=== PATIENT | female | born 1995 | race Caucasian/White ===

== ENCOUNTER 2020-07-20 21:06 | Emergency (ER) | payer OTHER, SELFPAY ==
[2020-06-07 09:21] VITALS: BMI 20.5
[2020-07-20 21:06] VITALS: BP 144/102; PULSE 86; RESP 17; TEMP 36.4; O2SAT 99; BMI 28.5
--- NOTE | 2020-07-20 21:37 | ED.VIS.GEN ---
History of Present Illness Chief Complaint: Laceration Informant: Patient Onset: Today Context: Sudden Onset Timing: Continuous Current Severity: Mild Maximum Severity: Mild Narrative: Patient is a 25-year-old female that is right-hand dominant the presents to the emergency department laceration to her right hand. Patient was pulling out some tile. She incised the lateral aspect of her right fifth finger at the MCP area. She had immediate pain and bleeding. She irrigated it copiously. Her tetanus is up-to-date. She denies other injury. Prior similar symptoms: No Recent Illness/Hospitalization: No Past Medical History - Allergies and Home Meds Allergies/Adverse Reactions: Allergies No Known Allergies Allergy (Verified 07/20/20 21:06) Primary Care Physician: Gaviota Obregon MD [Primary Care Provider] - 10 Day for suture removal Prior records reviewed: Yes Past Medical History: None Surgical History: no surgical history Smoking Status: Never smoker Review of Systems General: Denies: Chills, Fever, Sweats Eyes: Denies: Visual changes - bilaterally, Diplopia ENT: Denies: Rhinorrhea, Sore throat Cardiovascular: Denies: Chest pain, Palpitations Respiratory: Denies: Dyspnea, Cough, Dyspnea on exertion Gastrointestinal: Denies: Abdominal pain, Nausea, Vomiting, Diarrhea, Melena, Hematochezia Genitourinary: Denies: Dysuria, Hematuria, Frequency Musculoskeletal: Denies: Back pain, Extremity Pain Skin: Denies: Rash, Wounds Neurological: Denies: Headache, Weakness, Numbness Physical Exam Vital Signs/Narrative: Vital Signs Temp Pulse Resp BP Pulse Ox 07/20/20 21:06 97.6 F L 86 17 144/102 H 99 Inital Vital Signs reviewed: Yes General: Well nourished, Well developed, No Acute Distress Head: Normocephalic, Atraumatic Eyes: Perrl, EOMI ENT: Moist mucous membranes, No rhinorrhea Neck: Supple, Nontender Cardiovascular: Regular rate, Regular rhythm, No murmurs Respiratory: No distress, CTA bilaterally, Chest nontender Abdomen: Soft, Nontender, Nondistended, Normal bowel sounds Back: Nontender, Normal Inspection Extremities: No edema, Tenderness - Patient has a 2 cm laceration at the fold of the lateral aspect of the right fifth MCP joint. Flexion and extension are preserved. Two-point discrimination is preserved. Skin: Normal color, No rash Neurological: Alert, Oriented x3, Cranial nerves II-XII grossly intact, Normal Strength, Normal Sensation Psychological: Normal affect, Normal Mood Diagnostic/Tx/Re-eval - Medical Decision Making Patient presents with laceration. The area was anesthetized with 1% lidocaine without epinephrine. A total of 2 cc were used. It was irrigated and explored. There was no evidence of tendinous injury. The wound was closed with 3 simple interrupted 5-0 suture. Patient was placed in AlumaFoam splint for comfort. Bacitracin dressing was applied. She will be discharged home with wound care instructions. Impression 1. 2 cm right hand laceration with repair ED Disposition - Plan for ED Patient: Instructions: ED Laceration Hand Referrals: Gaviota Obregon MD [Primary Care Provider] - 10 Day for suture removal
[2020-07-20 21:55] VITALS: BP 123/84; PULSE 75; RESP 16
== END 2020-07-20 22:13 | disposition home or self-care (01) ==
LOC: ED 22:06
PROVIDERS: Emergency Provider Emergency Medicine; PCP Pediatrics
DX: S61.411A Laceration without foreign body of right hand, initial encounter (principal); X58.XXXA Exposure to other specified factors, initial encounter
CPT/HCPCS: 12001; 99282

== ENCOUNTER 2022-09-23 01:05 | Emergency (ER) | payer BC, SELFPAY ==
[2022-09-23 01:05] VITALS: BP 137/92; PULSE 112; RESP 19; TEMP 36.3; O2SAT 94; O2SAT 96; BMI 29.5
--- NOTE | 2022-09-23 01:28 | RAD_ITS ---
EXAM: XR CHEST, 1 VIEW CLINICAL INDICATION: cough. Shield abd please. 23 weeks cough. Shield abd please. 23 weeks TECHNIQUE: Frontal view of the chest. This report was created using [employer] report generation technology. COMPARISON: 05/03/2016. FINDINGS: LUNGS AND PLEURAL SPACES: Unremarkable. No consolidation or edema. No pneumothorax. No effusion. HEART: Unremarkable. Cardiac silhouette not enlarged. MEDIASTINUM: Central airways and mediastinal contour are unremarkable. BONES/JOINTS: Unremarkable. SOFT TISSUES: Unremarkable. RAD/Chest 1 View (Portable) IMPRESSION: No radiographic evidence of acute cardiopulmonary disease. Electronically Signed: Gopi Loya MD at 3:03 EST Reading Location ID and State: [facility] / [place] , Service support ,
--- NOTE | 2022-09-23 01:29 | EDS_ITS ---
HPI HPI - URI History of Present Illness Chief Complaint: Shortness of Breath Detail of Chief Complaint: Cough with yellowish sputum. Wheezing. Informant: patient Onset/Context/Timing Onset: Days Context: Gradual Onset Timing: Intermittent Current Severity: Mild Maximum Severity: Mild Associated Symptoms Associated Symptoms: Positive for Productive Cough (Yellow sputum.); Negative for Nonproductive cough or Hemoptysis Narrative Narrative: 27-year-old female G2, P1 Ab0 is currently 23 weeks . Has a history of asthma. Also protein Moss factor V clotting disorder on Lovenox shots daily which she has been taking. Had URI symptoms with cough of yellowish sputum. Intermittent wheezing. Was seen in urgent care on Thursday for a sore throat told she was strep negative they thought she might have influenza but did not her test her for that. She states the cough has worsened. Denies any chest pain or hemoptysis. And she is intermittently wheezing using her inhaler more often. Denies any fever. Only vomiting is with coughing spells. No dysuria. Prior similar symptoms: Yes Recent Illness/Hospitalization: No ROS ROS ED ROS Narrative Cough with URI symptoms. Intermittent wheezing. Review of Systems ROS Unobtainable: Denies due to encephalopathy Constitutional Constitutional ED: Denies chills or fever(s) Eyes Eyes: Denies blurry vision ENT ENT ED: Reports sore throat; Denies ear pain or rhinorrhea Cardiovascular Cardiovascular: Denies chest pain or palpitations Respiratory/Chest Respiratory/Chest: Reports cough and dyspnea Gastrointestinal Gastrointestinal: Denies abdominal pain, constipation, diarrhea or melena Genitourinary Genitourinary ED: Denies dysuria or hematuria Musculoskeletal Musculoskeletal: Denies arthralgias Integumentary Denies abscess Neurologic Neurologic: Denies headache(s) Psychiatric Psychiatric: Denies anxiety Endocrine Endocrinology: Denies cold intolerance Hematologic/Lymphatic Hematologic/Lymphatic: Denies easy bleeding or easy bruising Allergic/Immunologic Allergic/Immunologic ED: Denies mouth swelling or tongue swelling PFSH PFS Medical History Anemia Asthma Factor V deficiency Home Medications albuterol sulfate 90 mcg/actuation aerosol inhaler 1 - 2 puff inhalation Q6H PRN PRN Sob &/Or Wheezing 04/02/16 [History Last Taken Unknown] cetirizine 10 mg capsule (Zyrtec) 10 mg PO DAILY PRN seasonal allergies 09/17/22 [History Last Taken Unknown] enoxaparin 40 mg/0.4 mL subcutaneous syringe 0.4 ml subcut DAILY 09/17/22 [History Last Taken Unknown] albuterol sulfate 90 mcg/actuation aerosol inhaler (Proventil HFA) 2 puff inhalation Q6H PRN shortness of breath or wheezing #6.7 grams 09/23/22 [Rx Last Taken Unknown] prednisone 20 mg tablet 40 mg PO DAILY 5 days #10 tabs 09/23/22 [Rx Last Taken Unknown] Allergy/AdvReac Type Severity Reaction Status Date / Time No Known Allergies Allergy Verified 09/17/22 10:16 Social History Smoking Status: Never smoker alcohol intake: current alcohol intake frequency: a few times a month EXAM Physical Exam Narrative Exam Narrative: 27-year-old female vital signs are stable afebrile. Pulse ox 96% on room air no signs hypoxia. Patient does not look septic or toxic. Does not look dehydrated. H EENT exam unremarkable. Moist Riis membranes. Posterior pharynx unremarkable. No erythema or exudate. No trouble swallowing. No stridor. TMs normal. Neck nontender. No JVD. No lymphadenopathy. Trachea midline. Lungs clear to auscultation bilaterally. Mildly prolonged respiratory phase. No rales, rhonchi or wheezing. Heart tachycardic rate about 110 no murmur. Abdomen soft nontender normal bowel sounds no peritoneal signs. Gravid nont ravindra uterus. Moving all 4 extremities. Calves are nontender without edema or cords. Neurologically patient is awake and alert with no focal motor deficits. Const Vital Signs: 09/23/22 01:05 09/23/22 01:05 Temperature 97.3 F L Temperature Source Temporal Pulse Rate 112 H Respiratory Rate 19 H Respiratory Effort Short of Breath Respiratory Depth Normal Respiratory Pattern Tachypnea Blood Pressure 137/92 H Blood Pressure Mean 107 Pulse Ox 96 Oxygen Delivery Method Room Air Room Air Positive well nourished and well developed; Negative for obese, cachectic or contractures General Appearance ED: well developed and NAD; Negative for cachectic, contractures, cyanotic, diaphoretic or pallor Nutritional Appearance: Negative for cachectic or obese HEENT Reports moist mucous membranes; Denies dry mucous membranes normocephalic and atraumatic; Negative for scalp tenderness Face and Sinus: Negative for sinus tenderness or maxillary instability Mouth ED: No dry mucous membranes Mouth: No dry mucous membranes Teeth and Gingiva: Negative for caries Throat: posterior oropharynx normal; Negative for tonsils abnormal or posterior oropharynx abnormal Eyes PERRL and EOMs intact bilaterally General Eye ED: Negative for pale conjunctiva or scleral icterus Neck no lymphadenopathy, supple, no meningeal signs and no JVD General: Negative for anterior neck swelling or lymphadenopathy Resp normal respiratory effort and clear to auscultation bilaterally Resp Narrative: Mildly prolonged expiratory phase. No rales or rhonchi. Effort and Inspection: Negative for retractions Auscultation: Negative for rales, rhonchi or wheezes Cardio S1 normal heart sound, S2 normal heart sound and no murmurs Rate: tachycardic; Negative for regular rate or bradycardia Rhythm: regular rhythm; Negative for abnormal rhythm GI non-tender, non-distended and no masses GI Narrative: Gravid nontender uterus. Auscultation: normoactive bowel sounds Palpation: soft; Negative for tender or guarding Back/Spine no CVA tenderness and normal ROM General Back: Negative for CVA tenderness Cervical Spine: Negative for cervical spine tenderness Thoracic Spine / Upper Back: Negative for thoracic spinal tenderness Lumbar Spine / Lower Back: Negative for lumbar spinal tenderness Sacrum: Negative for tenderness Extremity normal to inspection and full ROM General Extremety ED: Negative for cyanosis or tenderness General Extremity: Negative for cyanosis Neuro oriented x3, CN's II-XII intact bilaterally and no sensory deficits noted Sensorium / Orientation: alert, oriented to person, oriented to place and orie nted to time; Negative for orientation impaired, lethargic or stuporous Motor Exam: strength 5/5 throughout; Negative for general weakness or strength abnormal Psych mental status grossly normal Appearance: Negative for other Attitude: No agitated Mood & Affect: Negative for depressed, anxious or tearful Skin General Skin Exam: Negative for jaundice or pallor Lesions: no lesions Rashes: no rashes Trauma: Negative for abrasion or laceration MDM MDM MDM Narrative Medical decision making narrative: 27-year-old female URI symptoms. Suspect viral syndrome. Will be treated with prednisone and a DuoNeb aerosol due to her asthma and prolonged expiratory phase. Chest x-ray will be obtained to rule out pneumonia. Her abdomen will be shielded due to her . I do not think this is from a PE. She is having no chest pain or hemoptysis. She is currently being treated for clotting disorder on Lovenox. COVID and influenza swabs will be done. Repeat exam at 2:57 AM patient doing better. Improved after the aerosol treatment in the dose of prednisone. No wheezing at this time. Better air movement. She will be discharged home. She is almost out of her inhaler I will send in a prescription both for an albuterol inhaler and 40 mg of prednisone for the next 5 days. Follow-up with her SE[facility] AND FERTILIZER SPECIALIST as needed. Return if worse. Lab Data Attestation: I reviewed the patient's lab results. Lab results narrative: Rapid COVID swab is negative. Influenza swab is negative. Chest x-ray is negative also. Radiography Diagnostic Testing: Chest x-ray, portable, single view interpreted by myself shows no acute abnormality. Normal cardiac silhouette. Normal lung cardenas. No infiltrate. Discharge Plan Triage Chief Complaint: Shortness of Breath ED Provider: Antony Ley Dx/Rx/DC Orders Clinical Impression: Viral URI, Acute asthma flare, Second trimester Instructions: ED URI, Viral, No Abx (Adult), Asthma Prescriptions: New albuterol sulfate [Proventil HFA] 90 mcg/actuation HFA aerosol inhaler 2 puff inhalation Q6H PRN (Reason: shortness of breath or wheezing) Qty: 6.7 1RF prednisone 20 mg tablet 40 mg PO DAILY 5 Days Qty: 10 0RF No Action enoxaparin 40 mg/0.4 mL syringe 0.4 ml subcut DAILY Zyrtec 10 mg capsule 10 mg PO DAILY PRN (Reason: seasonal allergies) albuterol sulfate 1 PUFF inhaler 1 - 2 puff INHALATION Q6H PRN PRN (Reason: Sob &/Or Wheezing) Primary Care Provider: Care Physician,No Primary Referrals: Sierra Obregon MD [Med Staff - Active Staff] - As Needed Care Physician,No Primary [Primary Care Provider] - Activity Restrictions/Additional Instructions: Inhaler as needed. 2 puffs every 4-6 hours as needed. Prednisone 40 mg a day start tomorrow. Follow-up with your doctor if not improving. Return if worse. Prescription for both the inhaler and prednisone were sent to your pharmacy. Disposition Disposition: Home, Self Care
[2022-09-23] MEDS: predniSONE 20 MG Tablet 40 MG PO (01:32)
[2022-09-23] MEDS: Ipratropium/Albuterol Sulfate 3 ML AMPUL.NEB INHALATION (01:40)
== END 2022-09-23 03:15 | disposition home or self-care (01) ==
PROVIDERS: Emergency Provider Emergency Medicine; Visit Provider Emergency Medicine
DX: O99.512 Diseases of the respiratory system complicating pregnancy, second trimester (principal); O99.112 Other diseases of the blood and blood-forming organs and certain disorders involving the immune mechanism complicating pregnancy, second trimester; R11.10 Vomiting, unspecified; J06.9 Acute upper respiratory infection, unspecified; J45.901 Unspecified asthma with (acute) exacerbation; Z79.01 Long term (current) use of anticoagulants; Z20.822 Contact with and (suspected) exposure to COVID-19
CPT/HCPCS: 71045; 87428; 99283

== ENCOUNTER 2022-12-22 11:28 | Emergency (ER) | payer BC, SELFPAY ==
[2022-12-22 11:29] VITALS: BP 106/84; PULSE 103; RESP 16; TEMP 36.6; O2SAT 96; BMI 29.5
--- NOTE | 2022-12-22 11:58 | RAD_ITS ---
EXAM: XR CHEST, 2 VIEWS CLINICAL INDICATION: Cough. SOB. TECHNIQUE: Frontal and lateral views of the chest. This report was created using [employer] report generation technology. COMPARISON: 05/03/2016. FINDINGS: LUNGS AND PLEURAL SPACES: Unremarkable. No consolidation or edema. No pneumothorax. No effusion. HEART: Unremarkable. Cardiac silhouette not enlarged. MEDIASTINUM: Central airways and mediastinal contour are unremarkable. BONES/JOINTS: Unremarkable. SOFT TISSUES: Unremarkable. RAD/Chest PA and Lateral IMPRESSION: No radiographic evidence of acute cardiopulmonary disease and no significant interval change when compared to 05/03/2016. Electronically Signed: Brenden Perez MD at 12:44 EDT ,
--- NOTE | 2022-12-22 12:00 | EX.ED.VIS.UR ---
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 She has been taking Delsym as needed since she developed runny nose, congestion, and a cough within the next couple days, still taking amoxicillin, she is having bilateral ear discomfort, chest discomfort, hoarseness now she has lost her voice, and wheezing with asthma symptoms, she has a history of asthma. Chest is really sore especially when she coughs. States albuterol is helping her wheezing some. No fevers or chills. She is in her third trimester and having no issues with that at this time. She is anticoagulated on Lovenox because of a history of factor V Leiden, she has had no bleeding anywhere recently. Patient states has been on the amoxicillin, her sore throat is much better. ROS ROS ED Constitutional Constitutional ED: Denies chills or fever(s) ENT ENT ED: Reports ear pain bilateral, hoarseness, nasal congestion, rhinorrhea and sore throat Cardiovascular Cardiovascular: Reports chest pain; Denies palpitations Respiratory/Chest Respiratory/Chest: Reports cough and dyspnea Gastrointestinal Gastrointestinal: Denies abdominal pain, diarrhea, nausea or vomiting Genitourinary Genitourinary ED: Denies dysuria or hematuria Musculoskeletal Musculoskeletal: Denies myalgias or neck pain Integumentary Denies abscess or rash Neurologic Neurologic: Denies headache(s), paresthesias or weakness Psychiatric Psychiatric: Denies depression or suicidal thoughts Endocrine Endocrinology: Denies polydipsia or polyuria [facility] Medical History Acute otitis media, right Acute pharyngitis, unspecified Acute sinusitis, unspecified Anemia Asthma Factor V deficiency Home Medications amoxicillin 250 mg/5 mL oral suspension 500 mg (10 mL) PO TID 10 days #300 mL 12/18/22 [Rx Last Taken Unknown] prednisone 20 mg tablet 40 mg PO DAILY #10 TABLETS 12/22/22 [Rx Last Taken Unknown] Allergy/AdvReac Type Severity Reaction Status Date / Time No Known Allergies Allergy Verified 12/22/22 11:32 Social History Smoking Status: Never smoker alcohol intake: current alcohol intake frequency: a few times a month EXAM Physical Exam Const Vital Signs: 12/22/22 11:29 12/22/22 12:50 Temperature 97.8 F Temperature Source Temporal Pulse Rate 103 H Respiratory Rate 16 Respiratory Effort Short of Breath Respiratory Depth Normal Respiratory Pattern Normal Blood Pressure 106/84 H Blood Pressure Mean 91 Pulse Ox 96 Oxygen Delivery Method Room Air Positive well nourished and well developed General Appearance ED: well developed and NAD HEENT Reports moist mucous membranes HEENT Narrative: TMs normal bilaterally, barely a rim of erythema at the stapes prominence in the left TM, but otherwise no purulent effusion or changes in light reflex. EACs normal bilaterally. No sinus tenderness. No purulent nasal discharge. normocephalic and atraumatic Throat: Negative for posterior oropharynx abnormal Eyes PERRL and EOMs intact bilaterally Neck no lymphadenopathy, supple and no meningeal signs Chest Wall Chest Narrative: Bilateral parasternal tenderness consistent with muscular discomfort. Resp normal respiratory effort and clear to auscultation bilaterally Cardio no murmurs Rate: regular rate and tachycardic Rhythm: regular rhythm GI non-tender GI Narrative: Distended above the umbilicus consistent with her third trimester Neuro oriented x3, CN's II-XII intact bilaterally and no sensory deficits noted Sensorium / Orientation: alert Motor Exam: strength 5/5 throughout Skin Lesions: no lesions Rashes: no rashes MDM MDM MDM Narrative Medical decision making narrative: Perform COVID and influenza swabs, which were both negative, as well as a two-view chest x-ray which is normal showing no acute consolidation/pneumonia on my interpretation. Radiology in agreement. Started on prednisone for her asthma exacerbation, I would continue the amoxicillin, it is not appropriate first-line treatment, however does appear to have taken care of her otitis media. She states the practitioner saw her told her that her left ear was very red and asymmetric when she was evaluated and that is much better now. I think the chest pain is a mixture of her bronchitis and a sore musculature in her chest wall. Supportive care advised in addition to prescription for prednisone. Radiography Diagnostic Testing: Clinical Impression(s) from Imaging Studies Chest X-Ray 12/22/22 11:58 IMPRESSION: No radiographic evidence of acute cardiopulmonary disease and no significant interval change when compared to 05/03/2016. Electronically Signed: Brenden Perez MD at 12:44 EDT , Discharge Plan Triage Chief Complaint: Cough ED Provider: Moshe Perez Dx/Rx/DC Orders Clinical Impression: Acute asthma exacerbation, Acute viral bronchitis Instructions: Acute Bronchitis, Asthma Prescriptions: New prednisone 20 mg tablet 40 mg PO DAILY Qty: 10 0RF No Action amoxicillin 250 mg/5 mL suspension for reconstitution 500 mg PO TID 10 Days Qty: 300 0RF Primary Care Provider: Care Physician,No Primary Referrals: Care Physician,No Primary [Primary Care Provider] - Doctor,Your [Non-Staff] - 1 Week if not improving Activity Restrictions/Additional Instructions: Prescription get started tomorrow, 12/23 since you already had a dose for 12/22 Disposition Disposition: Home, Self Care
[2022-12-22] MEDS: predniSONE 20 MG Tablet 40 MG PO (12:03)
== END 2022-12-22 13:08 | disposition home or self-care (01) ==
PROVIDERS: Emergency Provider Emergency Medicine; Visit Provider Emergency Medicine
DX: O99.513 Diseases of the respiratory system complicating pregnancy, third trimester (principal); J45.901 Unspecified asthma with (acute) exacerbation; J20.8 Acute bronchitis due to other specified organisms; Z3A.00 Weeks of gestation of pregnancy not specified
CPT/HCPCS: 71046; 87428; 99283

== ENCOUNTER 2022-12-30 18:35 | Inpatient (IN) | payer BC, SELFPAY ==
[2022-12-30 17:31] VITALS: BP 130/89; PULSE 67; TEMP 36.4
[2022-12-30 17:48] VITALS: BMI 29.8
[2022-12-30 18:37] LABS: ROM Internal Control Test YES-OK TO RESULT pt. (Internal QC)
[2022-12-30 18:38] LABS: ROM Patient Test POSITIVE (Negative)
[2022-12-30] MEDS: Lactated Ringers 1,000 ML 50 ML IV (19:15)
[2022-12-30 19:43] VITALS: BP 133/81; PULSE 60; TEMP 36.7
--- NOTE | 2022-12-30 19:50 | PCM.HP.OB ---
HPI - General General Date of Admission: 12/30/22 Date of Service: 12/30/22 HPI Narrative DOUGLAS LACEY, is a 27 F who presents possible LOF. Maternal Data Information Final ERICA: 01[birth year]/23 Gestational age: 37&3 PFSH PFSH Medical History (Updated 12/30/22 @ 20:[address] 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 Home Medications albuterol 90 mcg/actuation aerosol inhaler 90 mcg inhalation Q6H PRN PRN bronchitis 12/30/22 [History Last Taken 12/30/22 08:00 2 inh] enoxaparin 40 mg/0.4 mL subcutaneous syringe (Lovenox) 40 mg subcut DAILY factor V 12/30/22 [History Last Taken 12/28/22 20:00 40 mg] Allergy/AdvReac Type Severity Reaction Status Date / Time No Known Allergies Allergy Verified 12/30/22 17:51 Surgical History History of surgery Social History Smoking Status: Never smoker alcohol intake: current alcohol intake frequency: a few times a month History Elective abortions Hx Para 1 Spontaneous abortions Hx # Term Pregnancies Ectopic pregnancies Hx # Pregnancies Multiple births # of living children NST FHR Rate Baby A Baseline: 125 Variability:: Moderate Accelerations:: 15 x 15 Decelerations:: None Uterine Activity:: quiet Vital Signs Vital Signs Vital Signs: 12/30/22 17:31 12/30/22 17:31 12/30/22 17:31 Temperature 97.5 F L Pulse Rate 67 Blood Pressure 130/89 H BP Systolic 130 BP Diastolic 89 12/30/22 19:43 12/30/22 19:43 Temperature Pulse Rate 60 Blood Pressure 133/81 H BP Systolic 133 BP Diastolic 81 Weight Weight: 173 lb 15.115 oz Body Mass Index (BMI) 29.8 Physical Exam Const alert, oriented x3 and no apparent distress GI soft to palpation, non-tender and non-distended Inspection: gravid external exam normal Narrative: cvx - 3/70/-1 Extremity normal to inspection Labs Labs Labs: Blood Type O POSITIVE Antibody Screen NEGATIVE Hct 40.1 % (37-47) Hgb 13.5 g/dl (12.0-15.0) Syphilis Total Ab Pending Rubella IgG Antibody 8.4 IU/mL Hep Bs Antigen Negative (Negative) Rhogam given: No Miscellaneous Test see [facility] H&P Assessment & Plan (1) 37 or more weeks gestation of : COMMENT: G@P1001 @ 37&3 (2) Protein S deficiency affecting : (3) Factor V deficiency: (4) Asthma: PLAN: Plan Admit to L&D as ROM+ positive Expectant management & will augment with pitocin if needed Pain - declines epidural at this time GBS negative Thrombophilia - plan for PP lovenox Routine care
[2022-12-30 19:52] LABS: Absolute Lymphocyte Count 2.69 X10^3/uL (0.83-4.51); Absolute Neutrophil Count 9.8 X10^3/uL (2.0-7.7); Basophil# 0.03 X10^3/uL; Basophil% 0.2 % (0-1); Eosinophil# 0.11 X10^3/uL; Eosinophils% 0.8 % (0-5); Hematocrit 38.5 % (37-47); Hemoglobin 12.4 g/dL (12.0-15.0); Lymphocyte # 2.69 X10^3/ul (0.83-4.51); Lymphocyte % 19.9 % (19-41); Mean Corp Hgb Conc 32.2 g/dL (32-36); Mean Corpuscular Hgb 27.9 pg (27.0-32.0); Mean Corpuscular Volume 86.7 fL (81-99); Mean Platelet Vol. 11.4 fl (6.2-12.0); Monocyte# 0.84 X10^3/uL; Monocyte% 6.2 % (0-10); NRBC Flagged by Analyzer 0 % (0-5); Neutrophil # 9.76 X10^3/uL (2.7-7.7); Neutrophil % 72.2 % (47-70); Platelet Count 301 K/mm3 (150-450); RBC Distribution Width CV 12.5 % (11.6-14.6); RBC Distribution Width SD 39.8 fl (35.1-43.9); Red Blood Count 4.44 M/mm3 (4.2-5.4); White Blood Count 13.5 K/mm3 (4.4-11.0)
[2022-12-30 20:30] LABS: Syphilis Antibodies Non-reactive
[2022-12-30 22:25] VITALS: BP 122/72; PULSE 83; TEMP 36.4
[2022-12-31] VITALS (19 sets, daily range): BP systolic 114–160; BP diastolic 67–86; PULSE 51–77; RESP 16–18; TEMP 36.1–36.7; O2SAT 97
[2022-12-31] MEDS: Oxytocin 15 Units/NS 250ml 15 UNITS/250 ML IV.SOLN 2 UNITS IV (00:18)
[2022-12-31] MEDS: Acetaminophen 500 MG Tablet PO (03:32)
[2022-12-31] MEDS: fentaNYL 100 MCG/2 ML Ampul IV (03:58)
[2022-12-31] MEDS: LACTATED RINGERS 500 ML 999 ML IV (06:02)
--- NOTE | 2022-12-31 06:53 | EX.PCM.OBRPT ---
Maternal Data Information Final ERICA: 01/[birth year]/23 Gestational age: 39&4 Vaginal Delivery Maternal Presentation Maternal Presentation: Spontaneous Rupture of Membranes Type of Induction: Pitocin Operative Information Date of Procedure: 12/31/22 Pre-Operative Diagnosis: SROM Post-Operative Diagnosis: SROM Surgery / Procedure Performed: Spontaneous Vaginal Delivery Type of Anesthesia: Local with 1% Lidocaine Estimated Blood Loss: 300ml Findings Description of Procedure: Patient prepped & draped when C/C/+2. She pushed well to deliver the head. head gently guided to allow delivery of anterior and posterior shoulders. No excess traction placed on head. Body delivered and 3VC clamped & cut in delayed fashion. Placenta delivered with gentle traction and good uterine tone obtained. Presentation: ARUN Amniotic Membrane Rupture Type: Spontaneous Amniotic Fluid Description: Clear Placental Delivery Description: Expressed Placenta Disposition: [facility] Specimen(s) Removed: Placenta Cord Vessel Description: 3 Vessels Cord Entanglement: Around neck x 1, loose Nuchal Cord Compression: Without compression A Gender: Male (Lucas Ramana) (1 minute): 9 (5 minute): 9 Delayed Cord Clamping: Yes Post Vaginal Delivery Medications Given After Delivery: IV Pitocin Episiotomy Description: None Laceration: 1st degree (vaginal - repaired with 3-0 vicryl) Complication Complications: None
[2022-12-31] MEDS: Oxytocin 15 Units/NS 250ml 15 UNITS/250 ML IV.SOLN 83 UNITS IV (07:10)
[2022-12-31] MEDS: Ibuprofen 600 MG Tablet PO ×2 (07:50→17:51)
[2022-12-31] MEDS: Enoxaparin 40 MG/0.4 ML Syringe SC (10:16)
[2022-12-31] MEDS: 0.9% Saline Lock 10 ML Syringe IV (10:16)
[2022-12-31] MEDS: Acetaminophen 500 MG Tablet 1000 MG PO (21:39)
[2023-01-01 00:56] VITALS: BP 134/88; PULSE 67; RESP 18
[2023-01-01] MEDS: Ibuprofen 600 MG Tablet PO (02:06)
[2023-01-01 08:00] VITALS: BP 133/74; PULSE 59; RESP 16; TEMP 36.3
--- NOTE | 2023-01-01 08:57 | DCINST_ITS ---
Discharge Instructions Diet Discharge Diet: No restrictions Activity Discharge Activity: Return to Normal Activity, May Shower and May Take a Tub Bath May resume sexual activity in: 4-6 weeks Weight Bearing Status: Weight bearing as tolerated Dressing / Incision Call your doctor if you observe: Inability to urinate, Using more than 1 pad per hour, Shortness of breath, Dizziness, Swelling in the ankles, Chest pain, Calf discomfort and Uncontrolled pain Follow Up Care When: Within 10 days Test Results: Test results from this visit will be discussed in further detail at your follow- up appointment, if applicable. Discharge Plan Admission Admit Date/Time: 12/30/22 18:35 Primary Reason for Your Visit: Labor and Delivery Attending Provider: Diana Negron Primary Care Provider: Care Physician,Anju Primary Discharge Orders/Prescriptions Prescriptions: No Action albuterol 90 mcg/actuation Aerosol 90 mcg INHALATION Q6H PRN PRN (Reason: bronchitis) enoxaparin [Lovenox] 40 mg/0.4 mL Syringe 40 mg SUBCUT DAILY Referrals / Follow Up: Care Physician,Anju Primary [Primary Care Provider] - Disposition Disposition (needs filled in before D/C Order can be placed): Home, Self Care
--- NOTE | 2023-01-01 08:57 | PCM.PN.OB ---
Subjective Subjective Patient seen at bedside. Feeling good. Denies pain. Ambulating and voiding without difficulty. Bottle feeding . Desires discharge home today. Objective Data Objective Data Vital Signs: Vital Signs Temp Pulse Resp BP Pulse Ox O2 Del Method 97 F L 67 18 134/88 H 97 Room Air 12/31/22 19:56 01/01/23 00:56 01/01/23 00:56 01/01/23 00:56 12/31/22 08:55 01/01/23 00:56 Oxygen Delivery Method Room Air Weight: 173 lb 15.115 oz Body Mass Index (BMI) 29.8 Intake & Output: Intake and Output for Last 24 Hours 12/30/22 12/31/22 01/01/23 23:59 23:59 23:59 Intake Total 1562.50 / 1562.50 Output Total 600 / 600 Balance 962.50 / 962.50 Lab / Micro Data Result Diagrams: 12/30/22 19:35 ROS Eyes Eyes: Denies blurry vision, change in vision or spots in vision ENT HEENT: Denies dizziness or headache(s) Cardiovascular Cardiovascular: Denies abdominal pain, chest pain or dyspnea Respiratory/Chest Respiratory/Chest: Denies cough, dyspnea, shortness of breath at rest or shortness of breath with exertion Gastrointestinal Gastrointestinal: Denies abdominal pain, diarrhea or vomiting Genitourinary Genitourinary: Denies change in urinary stream, difficulty urinating or dysuria Musculoskeletal Musculoskeletal: Reports none Integumentary Integumentary: Denies rash Neurologic Neurologic: Denies dizziness, headache(s), memory loss or weakness Physical Exam Const alert and no apparent distress General Appearance: cooperative and comfortable Exam Limitations: no limitations HEENT normocephalic Eyes General Eye: normal appearance of both eyes Neck full ROM General: normal visual inspection Chest Chest: symmetrical chest wall rise Resp normal respiratory effort and normal air movement Effort and Inspection: symmetric chest movement Auscultation: clear to auscultation bilaterally Cardio regular rate and regular rhythm GI normal to inspection, nondistended, normoactive bowel sounds Back/Spine normal ROM Extremity full ROM and no calf tenderness General Extremity: normal exam except as noted Skin no rashes or lesions noted Neuro CN's II-XII intact bilaterally Psych mental status grossly normal Assessment & Plan (1) (spontaneous vaginal delivery): (2) Laceration, obstetrical, first degree: PLAN: Plan PPD 1 Routine care D/C home with follow up in office
[2023-01-01] MEDS: Enoxaparin 40 MG/0.4 ML Syringe SC (10:08)
== END 2023-01-01 10:25 | disposition home or self-care (01) | DRG 806 ==
LOC: WPOUT 18:42 → WP 18:42
PROVIDERS: Admitting Provider Obstetrics & Gynecology; Referring Provider Obstetrics & Gynecology; Visit Provider Obstetrics & Gynecology
DX: O42.92 Full-term premature rupture of membranes, unspecified as to length of time between rupture and onset of labor (principal); Z37.0 Single live birth; O99.12 Other diseases of the blood and blood-forming organs and certain disorders involving the immune mechanism complicating childbirth; D68.2 Hereditary deficiency of other clotting factors; D68.59 Other primary thrombophilia; J45.909 Unspecified asthma, uncomplicated; O70.0 First degree perineal laceration during delivery; O99.52 Diseases of the respiratory system complicating childbirth; O69.81X0 Labor and delivery complicated by cord around neck, without compression, not applicable or unspecified; Z3A.37 37 weeks gestation of pregnancy
CPT/HCPCS: 59025; 59050; 84112; 85025; 86780; 86850; 86900; 86901; 99221; J7120; A4216; G0378

== ENCOUNTER 2023-08-19 02:49 | Emergency (ER) | payer BC, SELFPAY ==
--- NOTE | 2023-08-19 03:25 | RAD_ITS ---
EXAM: XR CHEST, 2 VIEWS CLINICAL INDICATION: cough TECHNIQUE: Frontal and lateral views of the chest. COMPARISON: No relevant prior studies available. FINDINGS: LUNGS AND PLEURAL SPACES: Unremarkable. No consolidation or edema. No pneumothorax. No effusion. HEART: Unremarkable. Cardiac silhouette not enlarged. MEDIASTINUM: Central airways and mediastinal contour are unremarkable. BONES/JOINTS: Unremarkable. No acute fracture. SOFT TISSUES: Unremarkable. RAD/Chest PA and Lateral IMPRESSION: No radiographic evidence of acute cardiopulmonary disease. Electronically Signed: Ryne Joyner MD at 3:57 EST ,
--- NOTE | 2023-08-19 06:10 | EDS_ITS ---
HPI Narrative Narrative: Mirta Quinn 1995 HPI: Patient is a 28-year-old female with past medical history of asthma managed with an albuterol inhaler and factor V Leiden deficiency. ?She states her 7-year-old's been sick with sore throat for a few days and she has noticed c ongestion drainage and cough during this time as well.? She states it is at the point where she cannot sleep secondary to her cough and symptoms and has concerned she may have COVID or influenza or possible pneumonia and therefore comes in for evaluation Review of systems: Review of systems is positive for subjective fevers and chills with nasal congestion sore throat cough and ear pain Review of systems is negative for abdominal pain nausea vomiting chest pain Physical exam: General: Awake alert no acute distress Heart: Regular rate and rhythm Lungs: Breath sounds are diminished throughout with faint expiratory wheeze in the upper and lower lobes bilaterally without nasal flaring retractions or accessory muscle use HEENT: Bilateral TMs are retracted but show no secondary changes to suggest infection.? Nasal mucosa is hyperemic and boggy with enlarged inferior nasal turbinates.? There is cobblestoning the posterior pharynx consistent with sinus drainage but no airway edema or compromise Extremities: No asymmetric edema no pitting edema negative Homans' sign bilaterally Medical decision makin view chest x-ray as interpreted by the emergency medicine physician reveals no acute infiltrate pneumothorax pleural effusion or widening of the mediastinum Patient arrived to the ER in no acute respiratory distress satting well on room air. ?Differential diagnosis is for COVID versus influenza versus other viral upper respiratory tract infection versus pneumonia versus asthma exacerbation.? A chest x-ray was obtained to rule out potential lung infection and revealed no acute findings. ?She was given prednisone Robitussin AC and a DuoNeb treatment and on reevaluation did have moderate improvement of symptoms. ?Patient is not in respiratory distress she is not requiring supplemental oxygen she does not have lung pathology such as pneumonia or pneumothorax and therefore does not need admitted and is otherwise safe for discharge. Diagnosis: Upper respiratory tract infection Asthma exacerbation Factor V Leiden deficiency [facility] Medical History (Updated 08/19/23 @ 06:[address] Praveen Fairchild, DO) 37 or more weeks gestation of Acute otitis media, right Acute pharyngitis, unspecified Acute sinusitis, unspecified Anemia Asthma Factor V deficiency Protein S deficiency affecting Home Medications albuterol 90 mcg/actuation aerosol inhaler 90 mcg inhalation Q6H PRN PRN bronchitis 12/30/22 [History Last Taken 12/30/22 08:00 2 inh] enoxaparin 40 mg/0.4 mL subcutaneous syringe (Lovenox) 40 mg subcut DAILY factor V 12/30/22 [History Last Taken 12/28/22 20:00 40 mg] Allergy/AdvReac Type Severity Reaction Status Date / Time No Known Allergies Allergy Verified 12/30/22 17:51 Surgical History History of surgery Social History Smoking Status: Never smoker alcohol intake: current alcohol intake frequency: a few times a month Discharge Plan Triage ED Provider: Praveen Fairchild Dx/Rx/DC Orders Clinical Impression: Asthma exacerbation, Viral upper respiratory tract infection with cough, Factor V Leiden Prescriptions: No Action albuterol 90 mcg/actuation Aerosol 90 mcg INHALATION Q6H PRN PRN (Reason: bronchitis) enoxaparin [Lovenox] 40 mg/0.4 mL Syringe 40 mg SUBCUT DAILY Primary Care Provider: Care Physician,No Primary Referrals: Care Physician,No Primary [Primary Care Provider] - Disposition Disposition: Home, Self Care
== END 2023-08-19 06:11 | disposition home or self-care (01) ==
PROVIDERS: Emergency Provider Emergency Medicine; Visit Provider Emergency Medicine
DX: J06.9 Acute upper respiratory infection, unspecified (principal); D68.2 Hereditary deficiency of other clotting factors; J45.901 Unspecified asthma with (acute) exacerbation
CPT/HCPCS: 71046; 87428; 94640; 99284

== ENCOUNTER → 2023-12-23 | Outpatient (CLI) | payer BC, SELFPAY | END | disposition home or self-care (01) | LOC: BFHLAB 10:26 | PROVIDERS: PCP Nurse Practitioner Family; Visit Provider Nurse Practitioner Family | DX: N39.0 Urinary tract infection, site not specified (principal) | CPT/HCPCS: 87077; 87086; 87088; 87186 ==

== ENCOUNTER → 2024-05-26 | Outpatient (CLI) | payer BC, SELFPAY ==
[2024-05-26 17:40] LABS: Absolute Lymphocyte Count 2.87 X10^3/uL (0.83-4.51); Absolute Neutrophil Count 8.3 X10^3/uL (2.0-7.7); Basophil# 0.04 X10^3/uL; Basophil% 0.3 % (0-1); Eosinophil# 0.19 X10^3/uL; Eosinophils% 1.6 % (0-5); Hematocrit 43.7 % (37-47); Hemoglobin 13.7 g/dL (12.0-15.0); Lymphocyte # 2.87 X10^3/ul (0.83-4.51); Lymphocyte % 23.4 % (19-41); Mean Corp Hgb Conc 31.4 g/dL (32-36); Mean Corpuscular Hgb 27.9 pg (27.0-32.0); Mean Platelet Vol. 12.3 fl (6.2-12.0); Monocyte# 0.84 X10^3/uL; Monocyte% 6.9 % (0-10); NRBC Flagged by Analyzer 0 % (0-5); Neutrophil # 8.25 X10^3/uL (2.7-7.7); Neutrophil % 67.4 % (47-70); Platelet Count 243 K/mm3 (150-450); RBC Distribution Width CV 11.9 % (11.6-14.6); RBC Distribution Width SD 38.2 fl (35.1-43.9); Red Blood Count 4.91 M/mm3 (4.2-5.4); White Blood Count 12.2 K/mm3 (4.4-11.0)
== END | disposition home or self-care (01) ==
PROVIDERS: PCP Family Medicine; Referring Provider Family Medicine; Visit Provider Family Medicine
DX: F32.9 Major depressive disorder, single episode, unspecified (principal)
CPT/HCPCS: 36415; 84443; 85025

== ENCOUNTER → 2024-06-07 | Outpatient (CLI) | payer BC, SELFPAY | END | disposition home or self-care (01) | LOC: LABSPEC 15:41 | PROVIDERS: PCP Family Medicine; Referring Provider Nurse Practitioner Family; Visit Provider Nurse Practitioner Family | DX: N39.0 Urinary tract infection, site not specified (principal) | CPT/HCPCS: 87077; 87086; 87088; 87186 ==

== ENCOUNTER 2025-04-30 13:46 | Emergency (ER) | payer SELFPAY ==
[2025-04-30 13:47] VITALS: BP 132/82; PULSE 81; RESP 18; TEMP 36.8; O2SAT 99
--- NOTE | 2025-04-30 13:54 | RAD_ITS ---
PROCEDURE: Right FOOT MIN 3 VIEWS 04/30/2025 REASON FOR EXAM: INJURY TECHNIQUE: Right FOOT MIN 3 VIEWS Laterality: Right COMPARISON: None. FINDINGS: Bones: No acute bony abnormalities. Joints: No dislocation. Soft tissues: No soft tissue abnormalities. RAD/Foot min 3 Views IMPRESSION: No acute bony abnormalities. Reading Location: [id number]
--- NOTE | 2025-04-30 13:55 | RAD_ITS ---
PROCEDURE: ANKLE MIN 3 VIEWS 04/30/2025 REASON FOR EXAM: INJURY TECHNIQUE: ANKLE MIN 3 VIEWS Laterality: COMPARISON: None. FINDINGS: Bones: No acute bony abnormalities. Joints: No dislocations. Soft tissues: No soft tissue abnormalities. RAD/Ankle min 3 Views IMPRESSION: No acute bony abnormalities. Reading Location: [id number]
--- NOTE | 2025-04-30 13:55 | ED.VIS.LOWEX ---
HPI History of Present Illness Chief Complaint: Lower Extremity Injury Detail of Chief Complaint: Injury to right lower extremity Informant: patient Narrative Narrative: Patient presents to the emergency department with complaint of injury to the right lower extremity. Patient states that she missed a step and rolled her ankle and foot and fell to the ground. Patient able to bear some weight but painful. Denies any other significant injuries. [facility] Medical History (Updated 04/30/25 @ 14:[address] Sydney Chavez, DO) COVID-19 Protein S deficiency affecting 37 or more weeks gestation of Acute pharyngitis, unspecified Acute otitis media, right Acute sinusitis, unspecified Factor V deficiency Asthma Anemia Home Medications ?Medication ?Instructions ?Recorded ?Last Taken ?Type escitalopram oxalate 10 mg tablet 15 mg PO QDAY 11/21/24 Unknown History [id number] 7.5 ml PO Q4-6H PRN cold symptoms 01/12/25 Unknown Rx 2 mg-30 mg-10 mg/5 mL oral syrup #100 mL (Bromfed DM) ipratropium bromide 21 mcg (0.03 2 spray intranasal BID-TID PRN 01/12/25 Unknown Rx %) nasal spray postnasal drainage #30 mL hydrocodone-acetaminophen 5-325mg 1 tab PO Q4H PRN PRN Pain 2 days 04/30/25 Unknown Rx 5mg-325mg #10 TABLETS Allergy/AdvReac Type Severity Reaction Status Date / Time No Known Allergies Allergy Verified 04/30/25 13:48 Surgical History History of surgery Social History Smoking Status: Never smoker alcohol intake: current alcohol intake frequency: a few times a month ROS ROS ED Review of Systems ROS Unobtainable: other Constitutional Constitutional ED: Reports lethargy; Denies chills, fever(s), sweats or weight loss Eyes Eyes: Denies blurry vision, change in vision or diplopia ENT ENT ED: Denies rhinorrhea or sore throat Cardiovascular Cardiovascular: Denies chest pain, orthopnea or racing heartbeat Respiratory/Chest Respiratory/Chest: Denies cough, dyspnea, dyspnea on exertion, orthopnea or sputum Gastrointestinal Gastrointestinal: Denies abdominal pain, diarrhea, nausea or vomiting Genitourinary Genitourinary ED: Denies dysuria, hematuria or urinary frequency Musculoskeletal Musculoskeletal: Reports other Details: Right foot and ankle pain/injury ; Denies arthralgias, back pain, myalgias or neck pain Integumentary Denies abscess, Abrasions or rash Neurologic Neurologic: Denies headache(s) or weakness Psychiatric Psychiatric: Denies anxiety, depression or suicidal thoughts Endocrine Endocrinology: Denies polydipsia, polyphagia or polyuria Hematologic/Lymphatic Hematologic/Lymphatic: Denies easy bleeding, easy bruising or lymphadenopathy Allergic/Immunologic Allergic/Immunologic ED: Denies mouth swelling, tongue swelling or urticaria EXAM Physical Exam Const Vital Signs: 04/30/25 13:47 Temperature 98.3 F Temperature Source Oral Pulse Rate 81 Respiratory Rate 18 Blood Pressure 132/82 H Blood Pressure Mean 98 Pulse Ox 99 Oxygen Delivery Method Room Air Positive well nourished and well developed General Appearance ED: well developed and NAD HEENT Reports TM's clear and moist mucous membranes normocephalic and atraumatic; Negative for trauma or tenderness Tympanic Membrane ED: Yes TM's clear Eyes PERRL and EOMs intact bilaterally General Eye ED: Negative for pale conjunctiva or scleral icterus Neck no lymphadenopathy, supple and no JVD General: Negative for tenderness Chest Wall inspection of chest normal and palpation of chest normal Chest: Negative for tenderness Resp normal respiratory effort and clear to auscultation bilaterally Effort and Inspection: Negative for respiratory distress or pain with movement Auscultation: Negative for rhonchi, wheezes or diminished lung sounds Cardio regular rate, regular rhythm, S1 normal heart sound, S2 normal heart sound and no murmurs Peripheral Pulses: pulses 2+ throughout GI normal to inspection, nondistended, normoactive bowel sounds, soft to palpation, non-tender, non-distended and no masses Back/Spine no CVA tenderness and no thoracic nor lumbar tenderness Extremity Extremity Narrative: Right lower extremity-patient has tenderness to palpation over the lateral malleolus with minimal soft tissue swelling. There is no ecchymosis or bruising. Patient also has tenderness to palpation over the fifth metatarsal. Neurovascularly intact distally. No pain at the proximal fibular head. General Extremety ED: Negative for edema General Extremity: Negative for edema Neuro oriented x3, CN's II-XII intact bilaterally, no sensory deficits noted and gait normal Sensorium / Orientation: awake, alert, oriented to person, oriented to place and oriented to time Motor Exam: strength 5/5 throughout and strength abnormal Psych mental status grossly normal Skin no rashes or lesions noted and no wounds MDM MDM MDM Narrative Medical decision making narrative: Patient presents with injury to the right foot and ankle. X-rays obtained showed no fractures. Suspect likely sprain. Will treat with air splint and crutches. Advised to ice and elevate the extremity. She is to use ibuprofen or Tylenol for discomfort. I will write her for a few [place] for severe pain should she needed. Advised to follow-up with primary care physician in 7 to 10 days. Radiography Diagnostic Testing: Clinical Impression(s) from Imaging Studies Foot X-Ray 04/30/25 13:54 IMPRESSION: No acute bony abnormalities. Reading Location: [facility] Ankle X-Ray 04/30/25 13:55 IMPRESSION: No acute bony abnormalities. Reading Location: [facility] Three-view x-rays of the right foot obtained interpreted by myself as questionable fracture of the distal fibula avulsion type. Age undetermined. Radiology felt there was no bony abnormalities. Three-view x-rays of the right ankle obtained interpreted by myself as no evidence of fracture dislocation. Radiology in agreement. Discharge Plan Triage Chief Complaint: Lower Extremity Injury ED Provider: Sydney Chavez Dx/Rx/DC Orders Clinical Impression: Right foot sprain, Right ankle sprain Instructions: ED Foot Sprain, ED Ankle Sprain (Adult) Prescriptions: New hydrocodone-acetaminophen 5-325 mg tablet 1 tab PO Q4H PRN PRN (Reason: Pain) 2 Days Qty: 10 0RF No Action escitalopram oxalate 10 mg tablet 15 mg PO QDAY [id number] [Bromfed DM] 2-30-10 mg/5 mL syrup 7.5 ml PO Q4-6H PRN (Reason: cold symptoms) Qty: 100 0RF ipratropium bromide 21 mcg (0.03 %) spray,non-aerosol 2 spray intranasal BID-TID PRN (Reason: postnasal drainage) Qty: 30 0RF Rx Instructions: administer into each nostril Primary Care Provider: Rachelle Mcclelland Referrals: Rachelle Mcclelland MD [Primary Care Provider] - 1 Week Print Language: Micronesian Disposition Disposition: Home, Self Care
--- OUTSIDE RECORDS SUMMARY | 2025-04-30 14:11 | XMS RPT_ITS | CCD ---
Author Organization [facility] Care Team Providers Care Splitting Machine Feeder Name Role Phone ABENA BURLESON Unavailable Unavailable REFERRED, SELF Unavailable Unavailable FANNY, SOO A Unavailable Unavailable FANNY, SOO A Unavailable Unavailable REFERRED, SELF Unavailable Unavailable FANNY, SOO A Unavailable Unavailable Required, No Pcp Unavailable Unavailable Moomaguilherme Dino I Unavailable Unavailable Unavailable Primary Care Provider Unavailabl e Unavailable Primary Care Provider Unavailabl e Unavailable Primary Care Provider Unavailabl e ALEXX Gutierrez Attending Provider ALEXX Gutierrez Attending Provider Care Physician, No Primary Primary Care Provider Unavailable Care Physician, No Primary Referring Provider Un available ALEXX Hilario Attending Provider Unavailable Primary Care Provider Unavailabl e KEYSHAWN MOSELEY Referring Unavailable Rebeka Fermin Attending Unavailable Rebeka Fermin Referring Unavailable Miedel, Rachlele Primary Care Unavailable Miedel, Rachelle Primary Care Unavailable Miedel, Rachelle Attending Unavailable Miedel, Rachelle Referring Unavailable Miedel, Rachelle Primary Care Unavailable Guillermo Gutierrez Attending Unavailable Miedel, Rachelle Referring Unavailable Miedel, Rachelle Primary Care Unavailable Moomaw, Dino Attending Unavailable Miedel, Rachelle Referring Unavailable Miedel, Rachelle Primary Care Unavailable Guillermo Gutierrez Attending Unavailable Miedel, Rachelle Referring Unavailable Allergies Allergy Classification Reported Allergen(s) Allergy Type Date of Onset Reaction(s) Facility (19 sources) Grass pollen; Translations: [GRASS POLLEN] Drug Allergy 05-28-2022 Other: See Comments [facility] Work Phone: Medications Current Medications Medication Drug Class(es) Dates Sig (Normalized) Sig (Original) Albuterol (20 sources) beta2-Adrenergic Agonist Start: 12-30-2022 take 90 ug by inhalation every six hours as needed Albuterol Active 90 MCG INHALATION EVERY 6 HOURS NEEDED December 29, 2022 11:00pm Start: 12-30-2022 take 90 ug by inhala tion every six hours as needed Albuterol Active 90 MCG INHALATION EVERY 6 HOURS NEEDED December 30, 2022 12:00am Start: 09-23-2022 End: 12-18-2022 take 1 puff(s) by inhalation every six hours Albuterol Sulfate (Proventil Hfa) 90 mcg/actuation HFA aerosol inhaler Discontinued 2 PUFF INHALATION EVERY 6 HOURS 6.7 September 23, 2022 1:00am December 18, 2022 2:39pm Start: 04-02-2016 End: 12-18-2022 take 1 puff(s) by inhalation every six hours as needed Albuterol Sulfate Discontinued 1 - 2 PUFF INHALATION EVERY 6 HOURS NEEDED April 01, 2016 11:00pm December 18, 2022 1:39pm Start: 04-02-2016 End: 12-18-2022 take 1 puff(s) by inhalation every six hours as needed Albuterol Sulfate Discontinued 1 - 2 PUFF INHALATION EVERY 6 HOURS NEEDED April 02, 2016 12:00am December 18, 2022 2:39pm Start: 04-02-2016 take 1 puff(s) by in halation every six hours as needed Albuterol Sulfate Active 1 - 2 PUFF INHALATION EVERY 6 HOURS NEEDED April 01, 2016 11:00pm ALBUTEROL INHALA TION Inhale as instructed. Active ALBUTEROL INHALA TION Inhale as instructed. 0 Active Comment on above: Inhale as instructed . amoxicillin 50 mg/ml oral suspension (14 sources) Penicillin-class Antibacterial Start: 3 End: 3 take 10 mL by mouth three times daily amoxicillin (AMOXIL) 250 mg/5 mL suspension TAKE 10 ML BY MOUTH THREE TIMES A DAY FOR 10 DAYS 12/18/2022 Active Comment on above: TAKE 10 ML BY MOUTH THREE TIMES A DAY FOR 10 DAYS 0.4 ml enoxaparin sodium 100 mg/ml prefilled syringe (20 sources) Low Molecular Weight Heparin Start: 3 Enoxaparin (Lovenox) 40 mg/0.4 mL Syringe Active 40 MG SC DAILY December 30, 2022 12:00am Start: 09-17-2022 End: 12-18-2022 Enoxaparin Discontinued 0.4 ML SC DAILY September 17, 2022 12:00am December 18, 2022 1:39pm Start: 09-17-2022 End: 12-18-2022 Enoxaparin Discontinued 0.4 ML SC DAILY September 17, 2022 1:00am December 18, 2022 2:39pm Start: 09-17-2022 Enoxaparin Act jesus 0.4 ML SC DAILY September 17, 2022 12:00am Start: 06-20-2022 End: 08-28-2022 inject 0.4 mL by subcutaneous injection once daily enoxaparin (LOVENOX) 40 mg/0.4 mL Indications: Heterozygous factor V Leiden affecting , antepartum (HCC) , 9 weeks gestation of , Protein S deficiency (HCC) Inject 0.4 mL subcutaneously once daily. 30 Each 4 08/28/2022 Active Start: 04-02-2016 End: 06-07-2020 Enoxaparin Discontinued 40 M G SC DAILY@0600 April 02, 2016 12:00am June 07, 2020 9:19am Comment on above: Inject 0.4 mL subcut aneously once daily. escitalopram 10 mg oral tablet (2 sources) Serotonin Reuptake Inhibitor Start: 09-15-20 24 take 1.5 tablets by mouth once escitalopram oxalate (LEXAPRO) 10 mg tablet Take 1.5 tablets by mouth every afternoon. 09/15/2024 Active Famotidine (8 sources) Histamine-2 Receptor Antagonist famotidine (PEPCID ORAL) Take by mouth. Active famotidine (PEPC ID ORAL) Take by mouth. 0 Active Comment on above: Take by mouth. norethindrone 0.35 mg oral tablet (3 sources) Start: 3 take 1 tablet by mouth once daily Norethindrone, Contraceptive, (ORTHO MICRONOR) 0.35 mg tablet Take 1 tablet by mouth once daily. 28 tablet 11 02/09/2023 Active Comment on above: Take 1 tablet by laura once daily. ondansetron 4 mg oral tablet (17 sources) Serotonin-3 Receptor Antagonist Start: 2 take 1 tablet by mouth every eight hours as needed for nausea ondansetron (ZOFRAN) 4 mg tablet Indications: 9 weeks gestation of , Nausea and vomiting during Take 1 tablet by mouth every 8 hours as needed for nausea/vomiting. 30 tablet 06/20/2022 Active Comment on above: Take 1 tablet by laura th every 8 hours as needed for nausea/vomiting. predniSONE 20 mg oral tablet (12 sources) Start: take 40 mg by mouth once daily Prednisone Active 40 MG PO DAILY December 22, 2022 12:00am Start: 09-23-2022 predniSONE (DE LTASONE) 20 mg tablet Take by mouth. 09/23/2022 Active Start: 09-23-2022 End: 12-18-2022 take 40 mg by mouth once daily Prednisone Discontinued 40 MG PO DAILY 10 September 23, 2022 1:00am December 18, 2022 2:39pm Comment on above: Take by mouth. [id number] fum-folic ac-om3 28 mg iron- 800 mcg cmpk (20 sources) Start: 2022 take 1 tablet by mouth once daily [id number] fum-folic ac-om3 28 mg iron- 800 mcg cmpk Take 1 tablet by mouth once daily. 2022 Active Start: 2022 take 1 tablet by laura th once daily [id number] fum-folic ac-om3 28 mg iron- 800 mcg cmpk Take 1 tablet by mouth once daily. 0 2022 Active Comment on above: Take 1 tablet by laura th once daily. Completed/Discontinued Medications Medication Drug Class(es) Dates Sig (Normalized) Sig (Original) acetaminophen 325 mg / butalbital 50 mg / caffeine 40 mg oral tablet (8 sources) Barbiturate, Central Nervous System Stimulant, Methylxanthine Start: 05-03-2016 End: 06-07-2020 take 1 tablet by mouth every four hours as needed Butalbital-Acetam inophen-Caff Discontinued 1 TABLET PO EVERY 4 HOURS NEEDED May 03, 2016 12:00am June 07, 2020 9:19am Start: 04-11-2016 End: 2022 take 1 tablet by mouth every four hours as needed acetaminophen 325 mg-caffeine 40 mg-butalbital 50 mg (FIORICET) per tablet Take 1 tablet by mouth every 4 hours as needed for Headache. 30 tablet 0 04/11/2016 2022 Discontinued Comment on above: Take 1 tablet by laura th every 4 hours as needed for Headache. acetaminophen 325 mg / oxyCODONE hydrochloride 5 mg oral tablet (5 sources) Opioid Agonist Start: 6 End: 0 take 1 tablet by mouth every six hours as needed Oxycodone-Acetaminop hen Discontinued 1 - 2 TABLET PO EVERY 6 HOURS NEEDED May 03, 2016 11:25am June 07, 2020 9:20am cetirizine hydrochloride 10 mg oral capsule (20 sources) Histamine-1 Receptor Antagonist Start: 2 End: 3 take 1 capsule by mouth once daily Cetirizine (Zyrtec) 10 mg capsule Discontinued 10 MG PO DAILY September 17, 2022 1:00am December 18, 2022 2:39pm Start: 04-02-2016 End: 06-07-2020 take 10 mg by mouth once daily Cetirizine Discontinued 10 MG PO DAILY April 02, 2016 12:00am June 07, 2020 9:19am CETIRIZINE HCL ( ZYRTEC ORAL) Take by mouth once daily. Active CETIRIZINE HCL ( ZYRTEC ORAL) Take by mouth once daily. 0 Active Comment on above: Take by mouth once d aily. fluticasone (3 sources) Corticosteroid End: 2022 FLUTICASONE PROPIONATE (FLOVENT DISKUS INHALATION) Inhale as instructed. 0 2022 Discontinued FLUTICASONE PROP IONATE (FLOVENT DISKUS INHALATION) Inhale as instructed. 0 Active Comment on above: Inhale as instructed . 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] Chronic Mood disorders (1 source) Major depressive disorder, single episode, unspecified; Translations: [Major depressive disorder, single episode, unspecified] Onset: 06-16-2024 Chronic OB-related trauma to perineum and vulva (2 sources) First degree perineal laceration; Translations: [First degree perineal laceration during delivery] 01-01-2023 Episodic Other complications of (1 source) Maternal obesity complicating , childbirth and the puerperium, antepartum; Translations: [Obesity complicating , second trimester] Chronic Other complications of (1 source) Nausea and vomiting; Translations: [Vomiting of , unspecified] Episodic Other complications of (4 sources) High risk ; Translations: [Supervision of high risk , unspecified, first trimester] Episodic Other complications of (1 source) Other diseases of the blood and blood-forming organs and certain disorders involving the immune mechanism complicating , unspecified trimester; Translations: [Other current conditions classifiable elsewhere of mother, unspecified as to episode of care or not applicable] 01-01-2023 Episodic Other injuries and conditions due to external causes (2 sources) Injury of head; Translations: [Head injury, unspecified] 02-13-2022 Episodic Other injuries and conditions due to external causes (2 sources) Injury of finger of right hand; Translations: [Unspecified injury of right wrist, hand and finger(s), initial encounter] 09-23-2024 Episodic Other injuries and conditions due to external causes (1 source) Unspecified injury of right wrist, hand and finger(s), initial encounter; Translations: [Injury of finger of right hand, initial encounter] Onset: 09-23-2024 Episodic Other and delivery including normal (15 sources) Early stage of ; Translations: [Encounter for supervision of normal , unspecified, unspecified trimester] Episodic Other screening for suspected conditions (not mental disorders or infectious disease) (2 sources) Patient encounter status; Translations: [Encounter for other specified screening] Episodic Other upper respiratory infections (20 sources) Acute upper respiratory infection; Translations: [Acute upper respiratory infection, unspecified] Episodic Otitis media and related conditions (6 sources) Acute right otitis media; Translations: [Otitis media, unspecified, right ear] 12-18-2022 Episodic Residual codes; unclassified (2 sources) Gestation period, 9 weeks; Translations: [9 weeks gestation of ] Episodic Residual codes; unclassified (1 source) Gestation period, 13 weeks; Translations: [13 weeks gestation of ] Episodic Residual codes; unclassified (1 source) Gestation period, 19 weeks; Translations: [19 weeks gestation of ] Episodic Residual codes; unclassified (1 source) Gestation period, 23 weeks; Translations: [23 weeks gestation of ] Episodic Residual codes; unclassified (1 source) Gestation period, 27 weeks; Translations: [27 weeks gestation of ] Episodic Residual codes; unclassified (1 source) Gestation period, 29 weeks; Translations: [29 weeks gestation of ] Episodic Residual codes; unclassified (1 source) Gestation period, 31 weeks; Translations: [31 weeks gestation of ] Episodic Residual codes; unclassified (2 sources) Gestation period, 33 weeks; Translations: [33 weeks gestation of ] Episodic Residual codes; unclassified (1 source) Gestation period, 35 weeks; Translations: [35 weeks gestation of ] Episodic Residual codes; unclassified (1 source) Gestation period, 36 weeks; Translations: [36 weeks gestation of ] Episodic Unclassified (2 sources) HEAD PAIN FACE INJURY 02-13-2022 Comment on above: HEAD PAIN FACE INJUR Y Unclassified (1 source) APPOINTMENT CANCELLED Viral infection (1 source) Viral disease; Translations: [Viral infection, unspecified] 09-23-2024 Episodic Past or Other Problems Problem Classification Problem Date Documented Da te Episodic/Chronic Other complications of (16 sources) Complication of , childbirth and/or the puerperium; Translations: [Other diseases of the blood and blood-forming organs and certain disorders involving the immune mechanism complicating , unspecified trimester] Onset: 12-04-2022 Episodic Other complications of (19 sources) Morning sickness; Translations: [Other specified related conditions, unspecified trimester] Onset: 05-28-2022 Episodic Other complications of (20 sources) Heterozygous Factor V Leiden mutation; Translations: [Other diseases of the blood and blood-forming organs and certain disorders involving the immune mechanism complicating , unspecified trimester] Onset: 05-28-2022 Episodic Other complications of (14 sources) Rubella non-immune; Translations: [Supervision of other high risk pregnancies, unspecified trimester] Onset: 08-29-2022 08-29-2022 Episodic Unclassified (4 sources) Third trimester ; Translations: [37 or more weeks gestation of ] 12-30-2022 Urinary tract infections (1 source) Urinary tract infection, site not specified; Translations: [Urinary tract infection, site not specified] Onset: 06-28-2024 Episodic Results Test Name Value Interpretation Reference Range Facil ity Urgent Care Visit Reporton 0 01-12-2025 Urgent Care Visit Report [facility] [address], [address] [place] [address] OFFICE VISIT Date of Service: 01/12/25 MR#: [id number] Acct: [id number] Name: MIRTA LACEY Rep #: [id number] : 1995 Provider: ALEXX Ayoub Age/Sex: 29/F [place] [facility] Status: Signed Intake Vital Signs 11/21/24 11:08 01/12/25 10:44 Height 5 ft 4 in Weight: 181 lb 8 oz BMI 31.1 BP 118/68 106/64 Blood Pressure Location Lt brachial Position Sitting Sitting Respiration 15 Pulse 75 69 Pulse Source NIBP Temp 98.2 F 98.4 F Temp Source Oral Oral Pulse Oximetry (%) 98 99 Oxygen Delivery Method room air room air Intake Visit Reasons: Cough Chief Complaint: cough, drainage Orthopedic Coder Required: No Is patient in pain?: No Allergies No Known Allergies Allergy (Verified 01/12/25 10:45) Is last menstrual period known: No Post menopausal: No Patient : No Have you fallen in the past year?: No Nurse's Note: cough, drainage x 5 days. denies BEGUM, BA, fever, ST. hx asthma--inhalers not helping. exposed to bronchitis and pneumonia at home [facility] Medical History (Updated 11/21/24 @ 11:38 by ALFREDO WillC) COVID-19 Protein S deficiency affecting 37 or more weeks gestation of Acute pharyngitis, unspecified Acute otitis media, right Acute sinusitis, unspecified Factor V deficiency Asthma Anemia Surgical History History of surgery Social History Smoking Status: Never smoker alcohol intake: current alcohol intake frequency: a few times a month HPI HPI Chief Complaint: cough, drainage Details: MIRTA LACEY, is a 29 F who presents to the office today for complaint of cough and drainage for the past 5 days. Patient states that she has been using her albuterol inhaler and states she has a history of asthma with little relief of the cough. She denies fever, chills or sweats. No nausea, vomiting or diarrhea. No loss of taste or smell. No other associated symptoms or alleviating/aggravating factors. ROS Const Constitutional: No other (as above) Exam Const General: cooperative and well developed HENMT Head: normal to inspection and atraumatic Ears: hearing grossly normal bilaterally Nose: nasal discharge clear Face and sinus: normal facial exam Mouth: oral mucosae normal Throat: abnormal tonsil bilaterally hypertrophy 1+ Resp Effort Inspection: normal respiratory effort and no audible wheezes Auscultation: Bilateral: Clear to Auscultation Cardio Rate: regular rate Rhythm: regular rhythm Neuro General: patient alert and CN's II-XI intact bilaterally Psych Appearance: grossly normal Mental Status: mental status grossly normal Coding Level of Care Code Off vis,est,level 3 Diagnoses Acute bronchitis J20.9 Assessment and Plan Assessment and Plan (1) Acute bronchitis: Status: Acute Plan: Bromfed, Medrol Dosepak and Atrovent as prescribed today. Encouraged to get plenty of rest, drink lots of clear liquids, and use Tylenol or Ibuprofen (unless contraindicated) for fever and comfort. Patient also educated on other symptomatic management techniques. To be seen in 7-10 days if no improvement; sooner if worsening of symptoms. Patient advised of potential red flags and when appropriate to report to the ED. Patient verbalized understanding and agreement with all the above. Medications: New brompheniramine-pseudoe ph-DM 2-30-10 mg/5 mL (Bromfed DM) 7.5 mL PO Q4-6H PRN 100 mL 0RF cold symptoms ipratropium bromide administer into each nostril 2 sprays intranasal BID-TID PRN 30 mL 0RF postnasal drainage methylprednisolone (Medrol (Michael)) 4 mg PO PER PKG DIR 21 tabs 0RF 6 days Clinical Quality Measures Falls Risk Screening/Assistive Devices Have you fallen in the past year?: No 01/12/25 1126 Date Guillermo Simmons Signature: Date (if applicable) CC: [facility] [place] [facility] Visit Reporton 0 11-21-2024 Urgent Care Visit Report [facility] [address] , [address] [place] [address] OFFICE VISIT Date of Service: 11/21/24 MR#: [id number] Acct: [id number] Name: MIRTA LACEY Rep #: [id number] : 1995 Provider: EMILY Cordova Age/Sex: 29/F Location[place] [facility] Status: Signed Intake Vital Signs 12/30/22 17:48 11/21/24 11:08 Height 5 ft 4 in 5 ft 4 in Weight: 181 lb 8 oz BMI 31.1 BP 118/68 Position Sitting Pulse 75 Temp 98.2 F Temp Source Oral Pulse Oximetry (%) 98 Oxygen Delivery Method room air Intake Visit Reasons: SORE THROAT, CONGESTION, COUGH Chief Complaint: sore throat Accompanied by: Self Allergies No Known Allergies Allergy (Verified 11/21/24 11:16) Medications ???Medication ???Instructions ???Recorded ???Confirmed ???Type escitalopram oxalate 10 mg tablet 15 mg PO QDAY 11/21/24 11/21/24 H istory Nurse's Note: Patient has ST,congestion and cough and BEGUM that has been going on for 5 days. Patient co worker had covid and her daughter tested positive for strep today. [facility] Medical History (Updated 11/21/24 @ 11:38 by EMILY Will) COVID-19 Protein S deficiency affecting 37 or more weeks gestation of Acute pharyngitis, unspecified Acute otitis media, right Acute sinusitis, unspecified Factor V deficiency Asthma Anemia Surgical History History of surgery Social History Smoking Status: Never smoker alcohol intake: current alcohol intake frequency: a few times a month HPI HPI Chief Complaint: sore throat Details: MIRTA LACEY, is a 29 F who presents to the office today for HPI: Patient complains of 5-6 days of cough, congestion, sore throat. She denies any recent fevers. She has been exposed to COVID and her daughter was recently diagnosed with strep throat. ROS: As noted in HPI Physical Exam: VITALS: Reviewed. GEN: Healthy appearing, well-developed, NAD. PSYCH: AOx3. Normal memory, mood, and affect. HEENT -Eyes: -No discharge or redness; -Ears: -Mouth and throat: Moist mucous membranes. No tonsillar swelling or exudate noted NECK: CV: Regular rate and rhythm LUNGS: Normal respiratory effort. Lungs clear bilaterally. SKIN: Warm, well perfused. No skin rashes or abnormal lesions noted. MSK: Normal gait. NEURO: Ambulating with no limitations. Normal muscle strength and tone. No focal deficits. Results POC Effie Rapid Strep POC Effie Rapid Strep Negative Last Edit by Lisa Vizcaino MA on 11/21/24 11:34 POC EFFIE Covid FluAB PCR POC Effie Covid PCR Detected Last Edit by Lisa Vizcaino MA on 11/21/24 11:34 POC EFFIE FLU NOT DETECTED FLU A B Last Edit by Lisa Vizcaino MA on 11/21/24 11:34 Coding Level of Care Code Off vis,est,level 3 Diagnoses COVID-19 U07.1 Assessment and Plan Assessment and Plan (1) COVID-19: Status: Acute Plan: Patient tested negative for strep, influenza but did test positive for COVID-19. As symptoms have been ongoing for at least 5 days no specific treatment is indicated. She will use [id number] treatments as needed and follow-up with PCP if symptoms not improving. Orders: Orders POC Effie Rapid Strep A Today POC Effie Covid FLUAB PCR Today 11/21/24 1139 Date Dino Cordova CLERK OF COURT-C Cosigner Signature: Date (if applicable) CC: Normal [place] CNOVon 09-23-2024 CNOV Office Visit ([facility] ) MIRTA LACEY ([id number]) 1995 F Date Time Provider Department 09/23/24 11:45 AM KEYSHAWN MOSELEY [facility] During your visit today, we recorded the following information about you: Temperature Pulse Respiration Blood pressure 97.3 degrees 67/minute 18/minute 123/88 Weight 87 kg Keyshawn Moseley APRN.TIRE RECAPPING MACHINE OPERATOR 09/23/2024 12:28 PM Signed Subjective HPI Nontoxic-appearing female presents urgent care chief complaint URI. Duration of symptoms 6 days. Associated headache bilateral ear pain sore throat nasal congestion cough. Symptoms are improving. Presents today with ear pain. Additionally has a right finger injury. Injured it last night during volleyball. Has bruising and swelling over PIP joint fourth digit right hand. [id number]. Denies fracture or surgeries previously. No fevers chest pain shortness of breath. Denies chance of . Is not breast-feeding. Past medical history prescription medications allergies reviewed. .Patient presents with: Head Congestion: Sinus congestion, BEGUM, cough x6 days, L ear pain, ST Finger Injury: R hand ring finger injury x last night PAST MEDICAL HISTORY Diagnosis Date Asthma Blood dyscrasia Factor V Leiden carrier (HCC) Protein S deficiency (HCC) PAST SURGICAL HISTORY Procedure Laterality Date TONSILLECTOMY AND ADENOIDECTOMY ALLERGIES Grass Pollen MEDICATIONS escitalopram oxalate (LEXAPRO) 10 mg tablet Take 1.5 tablets by mouth every afternoon. famotidine (PEPCID ORAL) Take by mouth. ALBUTEROL INHALATION Inhale as instructed. CETIRIZINE HCL (ZYRTEC ORAL) Take by mouth once daily. Norethindrone, Contraceptive, (ORTHO MICRONOR) 0.35 mg tablet Take 1 tablet by mouth once daily. (Patient not taking: Reported on 09/23/2024) amoxicillin (AMOXIL) 250 mg/5 mL suspension TAKE 10 ML BY MOUTH THREE TIMES A DAY FOR 10 DAYS (Patient not taking: Reported on 09/23/2024) predniSONE (DELTASONE) 20 mg tablet Take by mouth. (Patient not taking: Reported on 09/23/2024) enoxaparin (LOVENOX) 40 mg/0.4 mL Inject 0.4 mL subcutaneously once daily. (Patient not taking: Reported on 09/23/2024) ondansetron (ZOFRAN) 4 mg tablet Take 1 tablet by mouth every 8 hours as needed for nausea/vomiting. (Patient not taking: Reported on 09/23/2024) thakly68-cdos fum-folic ac-om3 28 mg iron- 800 mcg cmpk Take 1 tablet by mouth once daily. (Patient not taking: Reported on 09/23/2024) FAMILY HISTORY Problem Relation Age of Onset Heart Attack Mother Arthritis Father No Known Problems Sister Scoliosis Brother other (pompay) Brother COPD Maternal Grandmother Asthma Maternal Grandmother Hypertension Maternal Grandmother other (pre diabetes) Maternal Grandmother No Known Problems Maternal Grandfather Scoliosis Paternal Grandmother Arthritis Paternal Grandmother Heart Failure Paternal Grandfather No Known Problems Daughter Social History Tobacco Use Smoking status: Never Smokeless tobacco: Never Vaping Use Vaping status: Never Used Substance Use Topics Alcohol use: Not Currently Comment: Socially Drug use: No BP 123/88 Pulse 67 Temp 36.3 ?C (97.3 ?F) Resp 18 Wt 87 kg (191 lb 12.8 oz) LMP 02/28/2022 SpO2 99% BMI 32.92 kg/m? Review of Systems Constitutional: Negative for chills, fever and malaise/fatigue. HENT: Positive for congestion, ear pain and sore throat. Negative for ear discharge and sinus pain. Eyes: Negative for blurred vision, pain, discharge and redness. Respiratory: Positive for cough. Negative for hemoptysis, sputum production, shortness of breath, wheezing and stridor. Cardiovascular: Negative for chest pain. Gastrointestinal: Negative for abdominal pain, diarrhea, nausea and vomiting. Musculoskeletal: Positive for joint pain. Negative for myalgias. Skin: Negative for itching and rash. Neurological: Positive for headaches. Negative for dizziness. Objective Physical Exam Constitutional: General: She is not in acute distress. Appearance: She is not diaphoretic. HENT: Head: Normocephalic. Jaw: No trismus, tenderness, swelling or pain on movement. Right Ear: Tympanic membrane, ear canal and external ear normal. Left Ear: Tympanic membrane, ear canal and external ear normal. Mouth/Throat: Mouth: Mucous membranes are moist. Pharynx: Oropharynx is clear. Uvula midline. No pharyngeal swelling, oropharyngeal exudate, posterior oropharyngeal erythema or uvula swelling. Eyes: Conjunctiva/sclera: Conjunctivae normal. Pupils: Pupils are equal, round, and reactive to light. Cardiovascular: Rate and Rhythm: Normal rate and regular rhythm. Heart sounds: Normal heart sounds. Pulmonary: Effort: Pulmonary effort is normal. No tachypnea, accessory muscle usage or respiratory distress. Breath sounds: Normal breath sounds. No stridor. No wheezing, rhonchi or rales. Abdominal: Gener (more content not included)... Normal [facility] XR DIGIT 3V FRONTAL/LAT/OBL RTon 09-23-2024 XR DIGIT 3V FRONTAL/LAT/OBL RT * * *Final Report* * * DATE OF EXAM: Sep 23 2024 11:56AM WOX [id number] - XR DIGIT 3V FRONTAL/LAT/OBL RT / PROCEDURE REASON: Injury of finger of right hand, initial encounter * * * * Physician Interpretation * * * * PROCEDURE: Right 4th finger INDICATION: Injury of finger of right hand, initial encounter .injured right ring finger during volleyball last night TECHNIQUE: XR DIGIT 3V FRONTAL/LAT/OBL RT COMPARISON: None FINDINGS: No acute fracture or dislocation. Joint spaces are maintained. Soft tissue swelling, most prominent at the PIP joint. IMPRESSION: No acute osseous abnormality Pipelayer: NYDIA Transcribe Date/Time: Sep 23 2024 12:03P Dictated by : ROGE AHN MD This examination was interpreted and the report reviewed and electronically signed by: ROGE AHN MD on Sep 23 2024 12:04PM EST [id number] Normal [facility] XR Finger - right AP and Lat eral and obliqueon 09-23-2024 IMPRESSION: No acute osseous abnormality Pipelayer: NYDIA Transcribe Date/Time: Sep 23 2024 12:03P Dictated by : ROGE AHN MD This examination was interpreted and the report reviewed and electronically signed by: ROGE AHN MD on Sep 23 2024 12:04PM EST DIVISION OF RADIOLOGY * * *Final Report* * * DATE OF EXAM: Sep 23 2024 11:56AM WOX [id number] - XR DIGIT 3V FRONTAL/LAT/OBL RT / PROCEDURE REASON: Injury of finger of right hand, initial encounter * * * * Physician Interpretation * * * * PROCEDURE: Right 4th finger INDICATION: Injury of finger of right hand, initial encounter .injured right ring finger during volleyball last night TECHNIQUE: XR DIGIT 3V FRONTAL/LAT/OBL RT COMPARISON: None FINDINGS: No acute fracture or dislocation. Joint spaces are maintained. Soft tissue swelling, most prominent at the PIP joint. DIVISION OF RADIOLOGY Provider, [facility] - 09/23/2024 * * *Final Report* * * DATE OF EXAM: Sep 23 2024 11:56AM WOX 5319 - XR DIGIT 3V FRONTAL/LAT/OBL RT / PROCEDURE REASON: Injury of finger of right hand, initial encounter * * * * Physician Interpretation * * * * PROCEDURE: Right 4th finger INDICATION: Injury of finger of right hand, initial encounter .injured right ring finger during volleyball last night TECHNIQUE: XR DIGIT 3V FRONTAL/LAT/OBL RT COMPARISON: None FINDINGS: No acute fracture or dislocation. Joint spaces are maintained. Soft tissue swelling, most prominent at the PIP joint. IMPRESSION IMPRESSION: No acute osseous abnormality Pipelayer: NYDIA Transcribe Date/Time: Sep 23 2024 12:03P Dictated by : ROGE AHN MD This examination was interpreted and the report reviewed and electronically signed by: ROGE AHN MD on Sep 23 2024 12:04PM EST [facility] Radiology Study observation (narrative) [facility] XR Finger - right AP and Lat eral and obliqueOrdered By: [facility] Provider on 09-23-2024 [facility] Urgent Care Visit Reporton 1 10-12-2023 Urgent Care Visit Report [facility] [address], [address] [place] [address] OFFICE VISIT Date of Service: 08/12/24 MR#: [id number] Acct: [id number] Name: MIRTA LACEY Rep #: [id number] : 1995 Provider: ALEXX Ayoub Age/Sex: 29/F [place] [facility] Status: Signed Intake Vital Signs 12/30/22 17:48 08/12/24 10:04 Height 5 ft 4 in BP 118/74 Blood Pressure Location Lt brachial Position Sitting Respiration 12 Pulse 113 H Pulse Source Monitor Temp 98.3 F Temp Source Oral Pulse Oximetry (%) 97 Oxygen Delivery Method room air Intake Visit Reasons: Cough Allergies No Known Allergies Allergy (Verified 08/12/24 10:05) [facility] Medical History (Updated 08/12/24 @ 10:51 by Guillermo COFFEY, PA) 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 Patient denies hemoptysis, shortness of breath or difficulty breathing. No fever, chills, sweats. No nausea, vomiting, diarrhea. No loss of taste or smell. No other associated symptoms or alleviating/aggravating factors. ROS Const Constitutional: No other (as above) Exam Const General: cooperative and healthy appearing HENWA Head: normal to inspection Ears: hearing grossly normal bilaterally, TM's normal bilaterally and EAC's normal Nose: nasal discharge purulent Face and sinus: sinus tenderness frontal and maxillary Mouth: oral mucosae normal Throat: abnormal tonsil bilaterally erythema and hypertrophy 1+ and postnasal drainage Resp Effort Inspection: normal respiratory effort Auscultation: Bilateral: Clear to Auscultation Cardio Palpation: normal PMI Rate: regular rate Rhythm: regular rhythm Neuro General: patient alert and CN's II-XI intact bilaterally Psych Appearance: grossly normal Mental Status: mental status grossly normal Coding Level of Care Code Off vis,est,level 3 Diagnoses Acute bronchitis J20.9 Assessment and Plan Assessment and Plan (1) Acute bronchitis: Status: Acute Plan: Azithromycin, benzonatate and Medrol Dosepak as prescribed today. Encouraged to get plenty of rest, drink lots of clear liquids, and use Tylenol or Ibuprofen (unless contraindicated) for fever and comfort. Patient also educated on other symptomatic management techniques. To be seen in 7-10 days if no improvement; sooner if worsening of symptoms. Patient advised of potential red flags and when appropriate to report to the ED. Patient verbalized understanding and agreement with all the above. Medications: New azithromycin take 500 mg today (day 1), then 250 mg for 4 days (days 2-5) PO 6 tabs 0RF benzonatate 200 mg (2 x 100 mg) PO TID PRN 30 caps 0RF cough methylprednisolone (Medrol (Michael)) 4 mg PO PER PKG DIR 21 tabs 0RF 6 days 08/12/24 1052 Date Guillermo Simmons Signature: Date (if applicable) CC: Normal [facility] Urine Cultureon 06-09-2024 [facility] Escherichia coli [place] Count 25,000-50,000 Escherichia coli: REACTION Ampicillin Islt TIFFANY <=2 S Ampicillin+Sulbac Islt TIFFANY <=2 S ceFAZolin Islt TIFFANY <=4 S Cefepime Islt TIFFANY <=0.12 S cefTRIAXone Islt TIFFANY <=0.25 S Ciprofloxacin Islt TIFFANY <=0.25 S Ertapenem Islt TIFFANY <=0.12 S B-Lactamase Extended Susc Islt NEG Gentamicin Islt TIFFANY <=1 S Imipenem Islt TIFFANY <=0.25 S levoFLOXacin Islt TIFFANY <=0.12 S Nitrofurantoin Islt TIFFANY <=16 S Pip+Tazo Islt TIFFANY <=4 S Tobramycin Islt TIFFANY <=1 S TMP SMX Islt TIFFANY <=20 S Normal [facility] Comment on above: Performed By: #### M 100.2200 #### [facility] [address] [place], [address] CBC W/Diff, Automatedon 09-0 5-2023 Absolute Lymph 2.87 X10 3/uL Normal 0.83-4.51 [facility] Comment on above: Performed By: #### L 100.0100, L501.9520 #### [facility] [address] [place], [address] Absolute Neut 8.3 X10 3/uL High 2.0-7.7 [facility] Comment on above: Performed By: #### L 100.0100, L501.9520 #### [facility] [address] [place], [address] Basophils/100 WBC (Bld) 0.3 % Normal 0-1 [facility] Comment on above: Performed By: #### L 100.0100, L501.9520 #### [facility] [address] [place], [address] Eosinophils/100 WBC (Bld) 1.6 % Normal 0-5 [facility] Comment on above: Performed By: #### L 100.0100, [id number] #### [facility] [address] [place], [address] Erythrocyte distribution width (RBC) [Ratio] 11.9 % Normal 11.6-14.6 [facility] Comment on above: Performed By: #### L 100.0100, L501.9520 #### [facility] [address] [place], [address] Hematocrit (Bld) [Volume fraction] 43.7 % Normal 37-47 [facility] Comment on above: Performed By: #### L 100.0100, L501.9520 #### [facility] [address] [place], [address] Hemoglobin (Bld) [Mass/Vol] 13.7 g/dL Normal 12.0-15.0 [facility] Comment on above: Performed By: #### L 100.0100, L501.9520 #### [facility] [address] [place], [address] IG% 0.400 Normal 0.0-0.9 [facility] Comment on above: Result Comment: IG% - Immature Granulocytes (promyelocytes, myelocytes and metamyelocytes) > 1% indicates that a LEFT SHIFT is Present. Performed By: #### L 100.0100, L501.9520 #### [facility] [address] [place], [address] Lymphocytes/100 WBC (Bld) 23.4 % Normal 19-41 [facility] Comment on above: Performed By: #### L 100.0100, L501.9520 #### [facility] [address] [place], [address] MCH (RBC) [Entitic mass] 27.9 pg Normal 27.0-32.0 [facility] Comment on above: Performed By: #### L 100.0100, [id number] #### [facility] [address] [place], [address] MCHC (RBC) [Mass/Vol] 31.4 g/dL Low 32-36 [facility] Comment on above: Performed By: #### L 100.0100, L501.9520 #### [facility] [address] [place], [address] MCV (RBC) [Entitic vol] 89.0 fL Normal 81-99 [facility] Comment on above: Performed By: #### L 100.0100, [id number] #### [facility] [address] [place], [address] Monocytes/100 WBC (Bld) 6.9 % Normal 0-10 [facility] Comment on above: Performed By: #### L 100.0100, [id number] #### [facility] [address] [place], [address] Neutrophils/100 WBC (Bld) 67.4 % Normal 47-70 [facility] Comment on above: Performed By: #### L 100.0100, [id number] #### [facility] [address] [place], [address] Nucleated RBC (Bld) [#/Vol] 0 10*3/uL Normal 0-5 [facility] Comment on above: Performed By: #### L 100.0100, [id number] #### [facility] [address] [place], [address] Platelet mean volume (Bld) [Entitic vol] 12.3 fL High 6.2-12.0 [facility] Comment on above: Performed By: #### L 100.0100, [id number] #### [facility] [address] [place], [address] Platelets (Bld) [#/Vol] 243 10*3/uL Normal 150-450 [facility] Comment on above: Performed By: #### L 100.0100, [id number] #### [facility] [address] [place], [address] RBC (Bld) [#/Vol] 4.91 10*6/uL Normal 4.2-5.4 [facility] Comment on above: Performed By: #### L 100.0100, [id number] #### [facility] [address] [place], [address] RDW SD 38.2 fl Normal 35.1-43.9 [facility] Comment on above: Performed By: #### L 100.0100, [id number] #### [facility] [address] [place], [address] WBC (Bld) [#/Vol] 12.2 10*3/uL High 4.4-11.0 [facility] Comment on above: Performed By: #### L 100.0100, [id number] #### [facility] [address] [place], [address] Thyroid Stim Hormone (TSH)on 05-26-2024 TSH 1.090 uIU/mL Normal 0.358-3.740 [facility] Comment on above: Performed By: #### L 100.0100, L501.9520 #### [facility] [address] [place], [address] Culture, urineOrdered By: Ra chelsey Fermin on 12-23-2023 Bacteria identified Cx Nom (U) Escherichia coli [facility] Influenza virus A and B and SARS-CoV-2 (COVID-19) Ag panel - Upper respiratory specimOrdered By: Praeven Fairchild on 08-19-2023 SARS-CoV-2 (COVID-19) RNA GEORGE+probe Ql (Resp) [facility] Absolute lymphocyte countOrd ered By: Dr. Negron on 12-30-2022 Lymphocytes Auto (Unsp spec) [#/Vol] 2.69 10*3/uL 0.83-4.51 [facility] Basophil percentageOrdered B y: Dr. Negron on 12-30-2022 Basophils/100 WBC (Bld) 0.2 % 0-1 [facility] Eosinophils/100 WBC (Bld) 0.8 % 0-5 [facility] Neutrophils (Bld) [#/Vol] 9.8 10*3/uL 2.0-7.7 [facility] Neutrophils/100 WBC (Bld) 72.2 % 47-70 [facility] WBC (Bld) [#/Vol] 13.5 10*3/uL 4.4-11.0 [facility] Blood erythrocytes count (nu mber/volume)Ordered By: Dr. Negron on 12-30-2022 RBC (Bld) [#/Vol] 4.44 10*6/uL 4.2-5.4 [facility] Blood hemoglobin measurement (mass/volume)Ordered By: Dr. Negron on 12-30-2022 Hemoglobin (Bld) [Mass/Vol] 12.4 g/dL 12.0-15.0 [facility] Blood lymphocytes/100 leukoc ytesOrdered By: Dr. Negron on 12-30-2022 Lymphocytes/100 WBC (Bld) 19.9 % 19-41 [facility] Blood monocytes/100 leukocyt esOrdered By: Dr. Negron on 12-30-2022 Monocytes/100 WBC (Bld) 6.2 % 0-10 [facility] Blood platelet mean volumeOr dered By: Dr. Negron on 12-30-2022 Platelet mean volume (Bld) [Entitic vol] 11.4 fL 6.2-12.0 [facility] Determination of erythrocyte mean corpuscular volume (MCV)Ordered By: Dr. Negron on 12-30-2022 MCV (RBC) [Entitic vol] 86.7 fL 81-99 [facility] Hematocrit Auto (Bld) [Volum e fraction]Ordered By: Dr. Negron on 12-30-2022 Hematocrit (Bld) [Volume fraction] 38.5 % 37-47 [facility] - Hematology and Cell countsOrdered By: Dr. Negron on 12-30-2022 Erythrocyte distribution width (RBC) [Entitic vol] 39.8 fL 35.1-43.9 [facility] Erythrocyte distribution width (RBC) [Ratio] 12.5 % 11.6-14.6 [facility] Immature granulocytes/100 WBC (Bld) 0.700 % 0.0-0.9 [facility] Comment on above: IG% - Immature Granu locytes (promyelocytes, myelocytes and metamyelocytes) > 1% indicates that a LEFT SHIFT is Present. MCH (RBC) [Entitic mass] 27.9 pg 27.0-32.0 [facility] Nucleated RBC/100 WBC (Bld) [Ratio] 0 % 0-5 [facility] MCHC Auto (RBC) [Mass/Vol]Or dered By: Dr. Negron on 12-30-2022 MCHC (RBC) [Mass/Vol] 32.2 g/dL 32-36 [facility] No Panel InformationOrdered By: Dr. Negron on 12-30-2022 Vaginal Amniotic Fluid Detection Positive Negative [facility] Comment on above: Amniotic fluid prese nt indicates rupture of Membranes. RESULTS CALLED TO EVELYNE 12/30/22 Melissa Larry.REPORT READ BACK BY SAME . Platelets bldOrdered By: Dr. Negron on 12-30-2022 Platelets (Bld) [#/Vol] 301 10*3/uL 150-450 [facility] Serum Treponema species anti body detectionOrdered By: Dr. Negron on 12-30-2022 Treponema sp Ab Ql (S) Non-Reactive [facility] URINE OB DIP B/Oon 3 Glucose Ql (U) Negative Neg mg/dL [facility] Protein.monoclonal (U) [Mass/Vol] Negative Neg mg/dL [facility] Influenza virus A and B and SARS-CoV-2 (COVID-19) Ag panel - Upper respiratory specimOrdered By: Dr. Perez on 12-22-2022 SARS-CoV-2 (COVID-19) RNA GEORGE+probe Ql (Resp) [facility] URINE OB DIP B/Oon 3 Glucose Ql (U) Negative Neg mg/dL [facility] Protein.monoclonal (U) [Mass/Vol] Negative Neg mg/dL [facility] Laboratory - Microbiology an d Antimicrobial susceptibilityon 12-18-2022 S. pyogenes Ag IA Ql (Unsp spec) Negative [facility] OBSTETRIC ULTRASOUND WHIon 0 12-04-2022 [facility] URINE OB DIP B/Oon 3 Glucose Ql (U) Negative Neg mg/dL [facility] Protein.monoclonal (U) [Mass/Vol] Negative Neg mg/dL [facility] URINE OB DIP B/Oon 3 Glucose Ql (U) Negative Neg mg/dL [facility] Protein.monoclonal (U) [Mass/Vol] Negative Neg mg/dL [facility] URINE OB DIP B/Oon 3 Glucose Ql (U) Negative Neg mg/dL [facility] Protein.monoclonal (U) [Mass/Vol] Negative Neg mg/dL [facility] URINE OB DIP B/Oon 3 Glucose Ql (U) Negative Neg mg/dL [facility] Protein.monoclonal (U) [Mass/Vol] Negative Neg mg/dL [facility] URINE OB DIP B/Oon 3 Glucose Ql (U) 100 mg/dL Neg mg/dL [facility] Protein.monoclonal (U) [Mass/Vol] trace Neg mg/dL [facility] Influenza virus A and B and SARS-CoV-2 (COVID-19) Ag panel - Upper respiratory specimOrdered By: Dr. Ley on 09-23-2022 SARS-CoV-2 (COVID-19) RNA GEORGE+probe Ql (Resp) [facility] - Microbiology an d Antimicrobial susceptibilityon 09-17-2022 S. pyogenes Ag IA Ql (Unsp spec) Negative [facility] OBSTETRIC ULTRASOUND WHIon 1 10-29-2021 [facility] URINE OB DIP B/Oon 2 Glucose Ql (U) Negative Neg mg/dL [facility] Protein.monoclonal (U) [Mass/Vol] Negative Neg mg/dL [facility] C. trachomatis+N. gonorrhoea e DNA GEORGE+probe Ql (Unsp spec)on 06-21-2022 C. trachomatis DNA GEORGE+probe Ql (Unsp spec) Negative Negative for Chlamydia trachomatis by amplificaton [facility] N. gonorrhoeae DNA GEORGE+probe Ql (Unsp spec) Negative Negative for Neisseria gonorrhoeae by amplification [facility] URINE CULTUREon 06-21-2022 Bacteria identified Cx Nom (U) <10,000 CFU/ml Normal urogenital esteban [facility] NASAL BONES, COMPLETE, MIN 3 VIEWSon 02-13-2022 NASAL BONES, COMPLETE, MIN 3 VIEWS Patient Name: MIRTA LACEY STUDY: NASAL BONES, COMPLETE, MIN 3 VIEWS; 02/13/2022 12:38 pm INDICATION: hit in nose by child's head . COMPARISON: None. ACCESSION NUMBER(S): [id number] ORDERING CLINICIAN: DINO CORDOVA FINDINGS: 3 views the skull/nasal bones including AP and bilateral lateral view were obtained. There is no radiographic evidence of displaced fracture identified. The visualized paranasal sinuses are clear without air-fluid levels. IMPRESSION: No radiographic evidence of displaced fracture. If there is continued concern for fracture, CT of the facial bones can be obtained. Electronically signed by: JOSE WEBBER MD [facility] Provider Note - ED v3on 05- Provider Note - ED v3 Provider Note: Chart Review: ED NOTES ED NOTES: HPI: Patient states that about 3 days ago she was swinging her child on a swing when she went to give her child to push the child leaned back and her heads collided. She complains of pain over the bridge of the nose and bilateral orbital bones. She states that she feels nauseated and dizzy with any extreme movements. Denies any vomiting or vision changes. ROS: Negative other than as noted in HPI ====Physical Exam==== Constitutional/General: Alert , well appearing, nontoxic, and in NAD. Head: Normocephalic and atraumatic. Diffuse tenderness over the orbital and nasal bones with no obvious deformities or ecchymosis. Eyes: PER, conjunctive normal, sclera nonicteric, subconjunctival layer is pink., EOMs intact Mouth: handling secretions, no trismus, moist mucous membranes Neck: Supple, full ROM, no stridor, no crepitus, no meningeal signs. Trachea at midline. Respiratory: not in respiratory distress. Chest: normal chest movement GI: nondistended Musculoskeletal: Moves all extremities, warm and well perfused Integument: Skin warm and dry, no rashes. Neurologic: GCS 15, no focal deficits Psychiatric: Normal affect. I have reviewed and confirmed nurses/medics notes for patient past, social and family history. Portions of this note were dictated by speech recognition. An attempt at proof reading was made to minimize errors. Minor errors in radio station audio engineer may be present. HISTORY OF PRESENTING ILLNESS MIRTA is a 26 year old Female and was seen by me at 13-Feb-2022 12:07 for a chief complaint of head injury (was swinging child and child's head came back and hit patient above nose, denies LOC, happened Thursday. reports headache and nausea since)(1). Triage Information: Most recent Vital Sign Value Date Temp (F): 97.6 02-13-2022 12:09 Temp (C): 36.4 02-13-2022 12:09 Heart Rate (beats/min): 99 02-13-2022 12:09 Respirations (breaths/min): 18 02-13-2022 12:09 SpO2 (%): 99 02-13-2022 12:09 BP Systolic (mm Hg): 133 02-13-2022 12:09 BP Diastolic (mm Hg): 91 02-13-2022 12:09 PAST MEDICAL HISTORY ALLERGIES/INTOLERANCES: No Known Allergies HEALTH HISTORY: No documented data. OUTPATIENT MEDICATIONS: Home Medications Review Status for Reconciliation: Complete Med Status: No Current Medications SIGNIFICANT EVENTS: Past Medical History Description:Factor 5 Description:Asthma CRITICAL CARE RESULTS: Radiology Results: Impression: No radiographic evidence of displaced fracture. If there is continued concern for fracture, CT of the facial bones can be obtained. Xray Nasal Bones Complete Min 3 View [Feb 13 2022 12:55PM] VITAL SIGNS: T PRBP SpO2O2(LPM) %FiO2 Method 13-Feb-2022 12:09:[id number]/91 99 [facility] MDM/ED COURSE: On initial evaluation I had an in-depth discussion regarding possible CAT scan of the head. After discussion patient prefers not to have a CAT scan performed but would like to have an x-ray of her nasal bones. X-ray of nasal bones were unremarkable and patient discharged home as noted below. She was written off of work for several days. On reevaluation at 1330 patient continues to rest in bed in no acute distress. The x-ray of your nasal bones did not show any obvious sign of fracture and I suspect your symptoms today are more consistent with a generalized contusion and possible mild concussion. I do recommend that you continue to follow-up closely with your family doctor and otherwise return to the nearest ER at anytime for any new or worsening concerns. DISPOSITION Diagnosis/Annotation: ED Dx Name:Head injury Code:S09.90XA Disposition: discharged Type: home CONSULT CRITICAL CARE TIME Is this a critically ill patient: no Electronic Signatures: Dino Cordova I (GROUNDSMAN-TIRE RECAPPING MACHINE OPERATOR) (Signed 13-Feb-2022 13:31) Authored: ED Notes, HPI, PMH, PE, Results/Vital Signs, MDM/ED Course, Clinical Impression, Attestation, Chart Review, Scores Last Updated: 13-Feb-2022 13:31 by Dino Cordova I (GROUNDSMAN-TIRE RECAPPING MACHINE OPERATOR) References: 1. Data Referenced From Triage - ED 13-Feb-2022 12:09 [facility] Risk Screen - Adult Emergenc yon 02-13-2022 Risk Screen - Adult Emergency Preferred Language: Preferred Language: Preferred Language for Discussing Health Care (patient/designee)Olya penny Advanced Directives: Advance Directive/DNRno Family Violence Adult: Abuse Screen: Are you or have you been threatened or abused physically, emotionally, or sexually by anyoneno Learning Assessment (Patient): Learning Assessment (Patient): Patient is Able to be Assessed for Learningyes Factors Influencing Readiness to Learnacuteness of illness Factors that Impact Ability to Learnnone Devices/Methods Used to Communicatenone Learning Preferencesaudio Cultural Considerationsnone Developmental Considerationsnone Moravian Considerationsnone Learning Assessment (Other Learner): Learning Assessment (Other Learner): Other learner availableno Pressure Injury/TB/Substance: Pressure Injury: Do you have a coughno Smoking Statusnever smoker Alcohol Usedenies Drug Usedenies Admission Risk Screen: Significant IndicatorsComplete CAGE: CAGE: Is this an injured patient at a Trauma Center ([facility] [facility] [place]/[place]/y[place] a/[place]): no Electronic Signatures: Maria Guadalupe Simeon (REBEKAH) (Signed 13-Feb-2022 12:13) Authored: Preferred Language, Advanced Directives, Family Violence Adult, Learning Assessment (Patient), Learning Assessment (Other Learner), Pressure Injury/TB/Substance, Pressure Injury, CAGE Last Updated: 13-Feb-2022 12:13 by Maria Guadalupe Simeon ([email or web address]) [facility] Triage - EDon 02-13-2022 Triage - ED Quick Triage: Are You no Are You Currently Breastfeedingno Chart Review: ARRIVAL INFORMATION Mode of Arrival: private vehicle CHIEF COMPLAINT MIRTA LACEY is a Female patient with a chief complaint of head injury (was swinging child and child's head came back and hit patient above nose, denies LOC, happened Thursday. reports headache and nausea since). Triage Date/Time: 13-Feb-2022 12:09 MISSY: 3 Pain Rating (0-10): 5 = Moderate Pain location: head Vital Signs: Temperature: 97.6F ( 36.4C) Blood Pressure: 133/91 Mean: Heart Rate: 99 Respiratory Rate: 18 Pulse Oximetry: 99% Height: 5 feet 4.00 inches. 162.5 CM Weight: 150.3 pounds. Calculated 68.2 kg. Calculated BMI (kg/m2): 25.827 Calculated BSA (m2) 1.75 Keyshawn Coma Scale: Best Eye Response: (E4) spontaneous Best Motor Response: (M6) obeys commands Best Verbal Response: (V5) oriented Keyshawn Score: 15 Allergies: no Last menstrual period: 28-Dec-2021 Patient has homicidal thoughts: no Risk Screens Suicide Risk Screen In the Past Month: Have you wished you were or wished you could go to sleep and not wake up no In the Past Month: Have you had any actual thoughts of killing yourself no In Your Lifetime: Have you ever done anything, started to do anything, or prepared to do anything to end your life no Flaherty Fall Scale Screening Has the patient fallen before (or is the patient in the ED as a result of a fall) has not had a fall Does the patient have an impaired gait does not have impaired gait Is the patient cognitively impaired not cognitively impaired Interventions: Flaherty Fall Interventions: LOW INTERVENTIONS: *patient oriented to surroundings and call system, * patient/family falls education completed and documented, *patients fall status communicated during bedside handoff, *whiteboard updated, *mode of toileting discussed with patient, *bed in low position with brakes locked, *call light in reach, * non-skid footwear TRAVEL HISTORY Travel History Coronavirus Screening: no exposure or symptoms Travel Exposure History: NO travel to International locations in the past 30 days PAIN Pain Scale Used: JOSE MANUEL Pain Rating (0-10): 5 = Moderate Past Medical History: Past Medical History Reviewedyes Asthma: Past Medical History, Active Factor 5: Past Medical History, Active Electronic Signatures: Maria Guadalupe Simeon) (Signed 13-Feb-2022 12:13) Entered: Risk Screens, Pain, Travel History, Chart Review, Scores, Past Medical History Authored: Quick Triage, Risk Screens, Pain, Travel History, Chart Review, Scores, Past Medical History Last Updated: 13-Feb-2022 12:13 by Maria Guadalupe Simeon) [facility] Progress Noteon 04-01-2018 Microstrategy Architect Developer Authentication Interface Message Text Patient ID: Mirta Irwin is a 22 y.o. female. Her chief complaint(s)include: Rash (neck x 5 months, redness, itchy, dry; tried eliminating dailyproducts she uses, jewelry, soaps & nothing helping)Assessment1. PsoriasisPlanCoholley was seen today for rash.Diagnoses and all orders for this visit:Psoriasis- triamcinolone (KENALOG) 0.1 % cream; Apply to affected area 2 times dailyfor 14 daysNo Follow-up on file.Patient to continue watching for anything that can make things worse.SubjectiveShe is unaccompanied. RashThe onset has been gradual. The duration has been 5 months. The pattern isrecurrent. The course is gradually worsening (will get less red and get moredry then will get more red again.).The rash is located on the neck. The rash is described as red and itchy. Onsetfollowed no skin contact with allergen, no new medication and no recent illness.Symptoms are relieved by topical antihistamines, topical corticosteriods andtopical moisturizers. The patient has no rhinorrhea, no sore throat, no cough,no vomiting and no diarrhea.The patient has been exposed to no sick contacts at home .Review of SystemsSkin: Positive for rash.ObjectiveVitals: 04/01/18 1443Temp: 36.8 C (98.3 F)TempSrc: TemporalWeight: 62.8 kgThere is no height or weight on file to calculate BMI.Physical ExamConstitutional: She is active.HENT:Head: Atraumatic.Right Ear: Tympanic membrane normal.Left Ear: Tympanic membrane normal.Neck: Normal range of motion.Cardiovascular: Regular rhythm, S1 normal and S2 normal.Pulmonary/Chest: Breath sounds normal.Abdominal: Soft.Neurological: She is alert.Skin: Rash noted. Rash is scaling (very red in patches around front of neck).Vitals reviewed: Temperature 36.8 C (98.3 F), temperature source Temporal,weight 62.8 kg, last menstrual period 12/31/2017. Normal [facility] Progress Noteon 04-17-2017 Microstrategy Architect Developer Authentication Interface Message Text Patient ID: Mirta Irwin is a 21 y.o. female. Her chief complaint(s)include: Rash (left arm).Assessment:1. Poison ivy2. ImpetigoPlan:Mirta was seen today for rash.Diagnoses and all orders for this visit:Poison florence- predniSONE (DELTASONE) 20 MG tablet; Take 2 Tabs (40 mg) by mouth dailyfor 5 daysImpetigo- mupirocin (BACTROBAN) 2 % ointment; Apply to affected area 3 times dailyfor 10 days Apply to affected areas.No Follow-up on file.Subjective:The patient's reason for visit is rash. She is unaccompanied. RashThe duration has been 1 week.Location: left arm. The rash is described as itchy. (Possible poison).Relieved by: using benadryl cream.Review of SystemsSkin: Positive for rash.Objective:Physical ExamConstitutional: She appears well. She is active. No distress.HENT:Head: Atraumatic.Right Ear: Tympanic membrane normal.Left Ear: Tympanic membrane normal.Mouth/Throat: Mucous membranes are moist.Eyes: Conjunctivae are normal.Cardiovascular: Normal rate and regular rhythm.No murmur heard.Pulmonary/Chest: Breath sounds normal. There is normal air entry.Neurological: She is alert.Skin: Rash (papular pruritic rash left forearm) noted. Normal [facility] Influenza virus A and B and SARS-CoV-2 (COVID-19) Ag panel - Upper respiratory specim SARS-CoV-2 (COVID-19) RNA GEORGE+probe Ql (Resp) [place] Work Phone: Vital Signs Date Time Vital Sign Value Performing Clinician Facility 09-23-2024 11:33-0500 Body mass index (BMI) [Ratio] 32.92 kg/m2 Keyshawn Moseley GROUNDSMAN.TIRE RECAPPING MACHINE OPERATOR Work Phone: [facility] 09-23-2024 11:33-0500 Body temperature 97.3 [degF] Keyshawn Moseley GROUNDSMAN.TIRE RECAPPING MACHINE OPERATOR Work Phone: [facility] 09-23-2024 11:33-0500 Body weight 87 kg [facility]chevy [facility] GROUNDSMAN.TIRE RECAPPING MACHINE OPERATOR Work Phone: [facility] 09-23-2024 11:33-0500 Diastolic blood pressure 88 mm[Hg] [facility] GROUNDSMAN.TIRE RECAPPING MACHINE OPERATOR Work Phone: [facility] 09-23-2024 11:33-0500 Heart rate 67 /min [facility] GROUNDSMAN.TIRE RECAPPING MACHINE OPERATOR Work Phone: [facility] 09-23-2024 11:33-0500 Respiratory rate 18 /min [facility] GROUNDSMAN.TIRE RECAPPING MACHINE OPERATOR Work Phone: [facility] 09-23-2024 11:33-0500 SaO2% (BldA) [Mass fraction] 99 % Keyshawn [facility] GROUNDSMAN.TIRE RECAPPING MACHINE OPERATOR Work Phone: [facility] 09-23-2024 11:33-0500 Systolic blood pressure 123 mm[Hg] [facility]hawn [facility] GROUNDSMAN.TIRE RECAPPING MACHINE OPERATOR Work Phone: [facility] 01-01-2023 08:00-0400 Body temperature 97.4 [degF] No Primary Care Physician [place] 01-01-2023 08:00-0400 Diastolic blood pressure 74 mm[Hg] No Primary Care Physician [place] 01-01-2023 08:00-0400 Heart rate 59 /min No Primary Care Physician [place] 01-01-2023 08:00-0400 Respiratory rate 16 /min No Primary Care Physician [place] 01-01-2023 08:00-0400 Systolic blood pressure 133 mm[Hg] No Primary Care Physician [place] 12-31-2022 08:55-0400 SaO2% (BldA) [Mass fraction] 97 % No Primary Care Physician [place] 12-30-2022 17:48-0400 Body height 162.56 cm No Primary Care Physician [place] 12-30-2022 17:48-0400 Body mass index (BMI) [Ratio] 29.8 kg/m2 No Primary Care Physician [place] 12-30-2022 17:48-0400 Body weight 78.9 kg No Primary Care Physician [place] 12-25-2022 13:28-0400 Body weight 77.56 kg Brooklyn Gaines MD Work Phone: [facility] 12-25-2022 13:28-0400 Diastolic blood pressure 64 mm[Hg] Brooklyn Gaines MD Work Phone: [facility] 12-25-2022 13:28-0400 Systolic blood pressure 110 mm[Hg] Brooklyn Gaines MD Work Phone: [facility] 12-22-2022 11:29-0400 Body height 162.56 cm No Primary Care Physician [place] 12-22-2022 11:29-0400 Body mass index (BMI) [Ratio] 29.5 kg/m2 No Primary Care Physician [place] 12-22-2022 11:29-0400 Body temperature 97.8 [degF] No Primary Care Physician [place] 12-22-2022 11:29-0400 Body weight 78.01 kg No Primary Care Physician [place] 12-22-2022 11:29-0400 Diastolic blood pressure 84 mm[Hg] No Primary Care Physician [place] 12-22-2022 11:29-0400 Heart rate 103 /min No Primary Care Physician [place] 12-22-2022 11:29-0400 Respiratory rate 16 /min No Primary Care Physician [place] 12-22-2022 11:29-0400 SaO2% (BldA) [Mass fraction] 96 % No Primary Care Physician [place] 12-22-2022 11:29-0400 Systolic blood pressure 106 mm[Hg] No Primary Care Physician [place] 12-19-2022 11:23-0400 Body weight 77.25 kg Brooklyn Gaines MD Work Phone: [facility] 12-19-2022 11:23-0400 Diastolic blood pressure 62 mm[Hg] Brooklyn Gaines MD Work Phone: [facility] 12-19-2022 11:23-0400 Systolic blood pressure 102 mm[Hg] Brookyln Gaines MD Work Phone: [facility] 12-18-2022 14:38-0400 Body mass index (BMI) [Ratio] 29.4 kg/m2 No Primary Care Physician [place] 12-18-2022 14:38-0400 Body temperature 98.3 [degF] No Primary Care Physician [place] 12-18-2022 14:38-0400 Body weight 77.79 kg No Primary Care Physician [place] 12-18-2022 14:38-0400 Diastolic blood pressure 78 mm[Hg] No Primary Care Physician [place] 12-18-2022 14:38-0400 Heart rate 92 /min No Primary Care Physician [place] 12-18-2022 14:38-0400 Respiratory rate 18 /min No Primary Care Physician [place] 12-18-2022 14:38-0400 SaO2% (BldA) [Mass fraction] 99 % No Primary Care Physician [place] 12-18-2022 14:38-0400 Systolic blood pressure 118 mm[Hg] No Primary Care Physician [place] 12-04-2022 11:21-0400 Body weight 77.2 kg Brooklyn Gaines MD Work Phone: [facility] 12-04-2022 11:21-0400 Diastolic blood pressure 80 mm[Hg] Brooklyn Gaines MD Work Phone: [facility] 12-04-2022 11:21-0400 Systolic blood pressure 120 mm[Hg] Brooklyn Gaines MD Work Phone: [facility] 11-20-2022 16:02-0500 Body weight 77.56 kg Sierra Obregon MD Work Phone: [facility] 11-20-2022 16:02-0500 Diastolic blood pressure 72 mm[Hg] Sierra Obregon MD Work Phone: [facility] 03-02-2023 16:02-0500 Systolic blood pressure 110 mm[Hg] Sierra Obregon MD Work Phone: [facility] 11-06-2022 09:26-0500 Body weight 77.38 kg Dione Collins MD Work Phone: [facility] 11-06-2022 09:26-0500 Diastolic blood pressure 70 mm[Hg] Dione Collins MD Work Phone: [facility] 11-06-2022 09:26-0500 Systolic blood pressure 108 mm[Hg] Dione Collins MD Work Phone: [facility] 10-20-2022 14:58-0500 Body weight 78.11 kg Divina Cope GROUNDSMAN.CNM Work Phone: [facility] 10-20-2022 14:58-0500 Diastolic blood pressure 68 mm[Hg] Divina Cope GROUNDSMAN.CNM Work Phone: [facility] 10-20-2022 14:58-0500 Systolic blood pressure 104 mm[Hg] Divina Cope GROUNDSMAN.CNM Work Phone: [facility] 09-25-2022 16:49-0500 Body weight 76.75 kg Dione Collins MD Work Phone: [facility] 09-25-2022 16:49-0500 Diastolic blood pressure 60 mm[Hg] Dione Collins MD Work Phone: [facility] 09-25-2022 16:49-0500 Systolic blood pressure 100 mm[Hg] Dione Collins MD Work Phone: [facility] 09-23-2022 01:05-0500 Body height 162.56 cm ALEXX COFFEY Work Phone: [place] Work Phone: 09-23-2022 01:05-0500 Body mass index (BMI) [Ratio] 29.5 kg/m2 ALEXX COFFEY Work Phone: [place] 09-23-2022 01:05-0500 Body temperature 97.3 [degF] PA Guillermo Sinclair PA Work Phone: [place] 09-23-2022 01:05-0500 Body weight 78.1 kg PA Guillermo Sinclair PA Work Phone: [place] 09-23-2022 01:05-0500 Diastolic blood pressure 92 mm[Hg] PA Guillermo Sinclair PA Work Phone: [place] 09-23-2022 01:05-0500 Heart rate 112 /min PA Guillermo Sinclair PA Work Phone: [place] 09-23-2022 01:05-0500 Respiratory rate 19 /min PA Guillermo Sinclair PA Work Phone: [place] 09-23-2022 01:05-0500 SaO2% (BldA) [Mass fraction] 96 % PA Guillermo Sinclair PA Work Phone: [place] 09-23-2022 01:05-0500 Systolic blood pressure 137 mm[Hg] PA Guillermo Sinclair PA Work Phone: [place] 09-17-2022 10:16-0500 Body temperature 98 [degF] PA Guillermo Sinclair PA Work Phone: [place] 09-17-2022 10:16-0500 Diastolic blood pressure 66 mm[Hg] PA Guillermo Sincalir PA Work Phone: [place] 09-17-2022 10:16-0500 Heart rate 102 /min PA Guillermo Sinclair PA Work Phone: [place] 09-17-2022 10:16-0500 Respiratory rate 16 /min PA Guillermo Sinclair PA Work Phone: [place] 09-17-2022 10:16-0500 SaO2% (BldA) [Mass fraction] 98 % PA Guillermo Sinclair PA Work Phone: [place] 09-17-2022 10:16-0500 Systolic blood pressure 110 mm[Hg] PA Guillermo Sinclair PA Work Phone: [place] 07-18-2022 08:57-0400 Body weight 78.02 kg Diana Negron MD Work Phone: [facility] 07-18-2022 08:57-0400 Diastolic blood pressure 68 mm[Hg] Diana Negron MD Work Phone: [facility] 07-18-2022 08:57-0400 Systolic blood pressure 108 mm[Hg] Diana Negron MD Work Phone: [facility] 06-20-2022 11:23-0400 Body height 162.6 cm Dione Collins MD Work Phone: [facility] 06-20-2022 11:23-0400 Body weight 80.2 kg Dione Collins MD Work Phone: [facility] 06-20-2022 11:23-0400 Diastolic blood pressure 60 mm[Hg] Dione Collins MD Work Phone: [facility] 06-20-2022 11:23-0400 Systolic blood pressure 100 mm[Hg] Dione Collins MD Work Phone: [facility] 2022 11:41-0400 Body weight 80.2 kg Diana Negron MD Work Phone: [facility] 2022 11:41-0400 Diastolic blood pressure 72 mm[Hg] Diana Negron MD Work Phone: [facility] 2022 11:41-0400 Systolic blood pressure 112 mm[Hg] Diana Negron MD Work Phone: [facility] 02-13-2022 15:32-0400 Diastolic blood pressure 78 mm[Hg] No Pcp Required [facility] 02-13-2022 15:32-0400 Heart rate 80 /min No Pcp Required [facility] 02-13-2022 15:32-0400 Respiratory rate 18 /min No Pcp Required [facility] 02-13-2022 15:32-0400 SaO2% (BldA) [Mass fraction] 95 % No Pcp Required [facility] 02-13-2022 15:32-0400 Systolic blood pressure 117 mm[Hg] No Pcp Required [facility] 02-13-2022 14: Body height 162.5 cm No Pcp Required [facility] 02-13-2022 14: Body temperature 97.52 [degF] No Pcp Required [facility] 02-13-2022 14: Body weight 68.2 kg No Pcp Required [facility] Encounters Encounter Date Encounter Type Care Provider Facility Start: 01-12-2025 End: [facility] [place] [place]: 11-21-2024 End: 11-21-2024 ambulatory [facility] [place] [place] Start: 09-23-2024 End: 09-23-2024 Subsequent hospital visit by physician Xr [facility] Merlin Work Phone: Radiology Comment on above: Injury of finger of right hand, initial encounter [S69.91XA] Start: 09-23-2024 End: 09-23-2024 ambulatory KEYSHAWN MOSELEY Facility:[facility] Start: 09-23-2024 End: 09-23-2024 Office outpatient visit 15 minutes Keyshawn Moseley GROUNDSMANBRAD Work Phone: [facility] Comment on above: Injury of finger of right hand, initial encounter (Primary Dx); Viral illness Start: 08-12-2024 End: 08-12-[facility] Start: 06-07-2024 End: 06-07-2024 ambulatory Rebeka Fermin Facility:[place] Start: 05-26-2024 End: 05-26-2024 ambulatory [facility] Facility:[place] Start: 12-23-2023 End: 12-23-2023 ambulatory [place] Work Phone: Start: 12-23-2023 End: 12-23-2023 Patient encounter procedure [place] Start: 08-19-2023 End: 08-19-2023 Emergency department patient visit [facility] Work Phone: Start: 03-07-2023 Refill Brooklyn Gaines MD Work Phone: OB/Gynecology Comment on above: Refill Request Start: 12-31-2022 ambulatory Diana Moon Work Phone: OB/Gynecology Comment on above: Ob Delivery Note Start: 12-30-2022 End: 01-01-2023 Evaluation and management of inpatient [facility] Start: 12-30-2022 Telephone encounter Diana nelson MD Work Phone: OB/Gynecology Comment on above: Care Start: 12-25-2022 End: 12-25-2022 Patient encounter procedure Brooklyn Gaines MD Work Phone: OB/Gynecology Comment on above: Supervision of high risk in third trimester (Primary Dx); Heterozygous factor V Leiden affecting , antepartum (HCC); Protein S deficiency affecting (HCC); 36 weeks gestation of Start: 12-22-2022 End: 12-22-2022 Emergency department patient visit No Primary Care Physician [place] Start: 12-19-2022 End: 12-19-2022 Patient encounter procedure Brooklyn Gaines MD Work Phone: OB/Gynecology Comment on above: Supervision of high risk in third trimester (Primary Dx); Heterozygous factor V Leiden affecting , antepartum (HCC); Protein S deficiency affecting (HCC); 35 weeks gestation of Start: 12-18-2022 End: 12-18-2022 Patient encounter procedure No Primary Care Physician [facility] Start: 12-04-2022 End: 12-04-2022 Patient encounter procedure Brooklyn Gaines MD Work Phone: OB/Gynecology Comment on above: Protein S deficiency affecting (HCC) (Primary Dx); Supervision of high risk in third trimester; Heterozygous factor V Leiden affecting , antepartum (HCC); 33 weeks gestation of Encounter for ultras ound to assess growth (Primary Dx); 33 weeks gestation of ; Encounter for supervision of other normal in third trimester; Protein S deficiency (HCC); Heterozygous factor V Leiden affecting , antepartum (HCC) Start: 11-20-2022 End: 11-20-2022 Patient encounter procedure Sierra Obregon MD Work Phone: OB/Gynecology Comment on above: 31 weeks gestation o f (Primary Dx); Encounter for supervision of other normal in third trimester; Protein S deficiency (HCC); Heterozygous factor V Leiden affecting , antepartum (HCC) Start: 11-06-2022 End: 11-06-2022 Patient encounter procedure Dione Collins MD Work Phone: OB/Gynecology Comment on above: 29 weeks gestation o f (Primary Dx); Encounter for supervision of other normal in third trimester Start: 10-20-2022 End: 10-20-2022 Patient encounter procedure Divina Cope APRN.CNM Work Phone: OB/Gynecology Comment on above: 27 weeks gestation o f (Primary Dx) Start: 10-07-2022 Refill Dione Moon Work Phone: OB/Gynecology Comment on above: Refill Request Start: 09-25-2022 End: 09-25-2022 Patient encounter procedure Dione Collins MD Work Phone: OB/Gynecology Comment on above: 23 weeks gestation o f (Primary Dx); Encounter for supervision of other normal in first trimester Start: 09-23-2022 End: 09-23-2022 Emergency department patient visit ALEXX COFFEY Work Phone: [place] Start: 09-17-2022 End: 09-17-2022 Patient encounter procedure ALEXX COFFEY Work Phone: [place] Start: 08-28-2022 End: 08-28-2022 Patient encounter procedure Amy Griffin MD Work Phone: Maternal Medicine Comment on above: Encounter for anatomic survey (Primary Dx); Obesity complicating , second trimester; 19 weeks gestation of Start: 07-18-2022 End: 07-18-2022 Patient encounter procedure Diana Negron MD Work Phone: OB/Gynecology Comment on above: Encounter for superv ision of other normal in first trimester (Primary Dx); 13 weeks gestation of Start: 06-20-2022 End: 06-20-2022 Patient encounter procedure Dione Collins MD Work Phone: OB/Gynecology Comment on above: 9 weeks gestation of (Primary Dx); Heterozygous factor V Leiden affecting , antepartum (HCC); Nausea and vomiting during ; Protein S deficiency (HCC); Supervision of high risk in first trimester Start: 05-28-2022 End: 05-28-2022 [facility] Comment on above: Heterozygous factor V Leiden affecting , antepartum (HCC) (Primary Dx); related nausea, antepartum; Patient request for diagnostic testing Start: 05-28-2022 End: 05-28-2022 [facility] Start: 05-22-2022 End: 05-22-2022 Patient encounter procedure Brooklyn Gaines MD Work Phone: OB/Gynecology Comment on above: with uncer tain dates in first trimester (Primary Dx) Start: 05-16-2022 ambulatory Diana Moon Work Phone: OB/Gynecology Comment on above: Question regarding H CG QUANTITATIVE Start: 2022 End: 2022 Patient encounter procedure Diana Negron MD Work Phone: OB/Gynecology Comment on above: Early stage of pregn vivien (Primary Dx); Factor V Leiden carrier (HCC); Protein S deficiency affecting (HCC) Start: 05-09-2022 End: 05-09-2022 Patient encounter procedure Diana Negron MD Work Phone: OB/Gynecology Comment on above: APPOINTMENT CANCELLE D (Primary Dx) Start: 05-09-2022 End: 05-09-2022 Telemedicine consultation with patient [facility]gr[facility] MD [facility] Start: 05-09-2022 Telephone encounter Fire Sprinkler Apparatus Inspector RN Maternal Medicine Comment on above: Fire Sprinkler Apparatus Inspector - O ther Start: 02-13-2022 End: 02-13-2022 Emergency department patient visit Dino Cordova [facility] Emergency Start: 04-01-2018 End: 04-01-2018 Patient encounter SOO OBREGON [facility] Start: 04-17-2017 End: 04-17-2017 Patient encounter ABENA BURLESON [facility] Procedures Date Procedure Procedure Detail Performing Clinician Start: 09-23-2024 Radex fingr minimum 2 views Keyshawn Moseley APRN.TIRE RECAPPING MACHINE OPERATOR Work Phone: Start: 12-23-2023 Urine culture Start: 08-19-2023 SARS-CoV-2 & FLU Ant igen (Rapid) Start: 08-19-2023 Plain chest X-ray Start: 12-25-2022 URINE OB DIP B/O Brooklyn Efraín Gaines MD Work Phone: Start: 12-22-2022 Plain chest X-ray No Pr imary Care Physician Start: 12-19-2022 URINE OB DIP B/O Brooklyn Efraín Gaines MD Work Phone: Start: 12-04-2022 URINE OB DIP B/O Brooklyn Efraín Gaines MD Work Phone: Start: 12-04-2022 Us preg uterus after 1st trimest 1 gestation Sierra Obregon MD Work Phone: Start: 11-20-2022 URINE OB DIP B/O Loan Obregon MD Work Phone: Start: 11-06-2022 URINE OB DIP B/O Dione murguia MD Work Phone: Start: 10-20-2022 URINE OB DIP B/O Bobby Cope APRN.CNM Work Phone: Start: 09-25-2022 URINE OB DIP B/O Dione murguia MD Work Phone: Start: 09-23-2022 Plain chest X-ray PA Co ry Yahir PA Work Phone: Start: 08-28-2022 Us preg uterus after 1st trimest 09/21 gestation Dione Collins MD Work Phone: Start: 07-18-2022 URINE OB DIP B/O iDana Negron MD Work Phone: Start: 06-20-2022 Iadna chlamydia trachomatis amplified probe tq Dione Collins MD Work Phone: SARS-CoV-2 & FLU Ant igen (Rapid) ALEXX COFFEY Work Phone: SARS-CoV-2 & FLU Ant igen (Rapid) No Primary Care Physician SARS-CoV-2 & FLU Ant igen (Rapid) No Primary Care Physician Plan of Treatment Date Care Activity Detail Author Start: 10-23-2032 Urine microalbumin profile [facility] Start: 05-22-2024 Covid-19 Vaccine ( season) Covid-19 Vaccine () [facility] Start: 02-13-2024 PAP TESTING PAP TESTING [facility] Start: 02-13-2024 Screening for malign ant neoplasm of cervix Cervical Cancer Screening [facility] Start: 05-22-2023 Influenza vaccination INFLUENZA (Sea son Ended) [facility] Start: 01-01-[address] [facility] Start: 12-31-2022 Administration of medication [place] Start: 12-31-2022 Application of ice collar, cap or bag [place] Start: 12-31-2022 Catheterization of vein [place] Start: 12-31-2022 Introduction of urin ana catheter [place] Start: 12-31-2022 Measuring intake and output [place] Start: 12-31-2022 Notification of physician [place] Start: 12-31-2022 Procedure discontinued [place] Start: 12-31-2022 Provision of activit y privileges [place] Start: 12-31-2022 Vital signs measurements [place] Start: 12-31-2022 [facility] Start: 12-30-2022 Admission procedure [facility] Start: 11-20-2022 End: 11-21-2023 OBSTETRIC ULTRASOUND [facility] OBSTETRIC ULTRASOUND [facility] Anc Imaging Routine 31 weeks gestation of Encounter for supervision of other normal in third trimester Protein S deficiency (HCC) Heterozygous factor V Leiden affecting , antepartum (HCC) Expected: 11/20/2022, Expires: 11/21/2023 [facility] Work Phone: Comment on above: Expected: 11/20/2022 , Expires: 11/21/2023 Start: 10-26-2022 End: 12-26-2022 CBC W Auto Differential panel - Blood CBC + DIFF Lab Routine 23 weeks gestation of Encounter for supervision of other normal in first trimester Expected: 10/26/2022 (Approximate), Expires: 12/26/2022 [facility] Work Phone: Comment on above: Expected: 10/26/2022 (Approximate), Expires: 12/26/2022 Start: 10-26-2022 End: 12-26-2022 GEST GLUC SCREEN, 1-HR, 50 GM, NON-FASTING GEST GLUC SCREEN, 1-HR, 50 GM, NON-FASTING Lab Routine 23 weeks gestation of Encounter for supervision of other normal in first trimester Expected: 10/26/2022 (Approximate), Expires: 12/26/2022 [facility] Work Phone: Comment on above: Expected: 10/26/2022 (Approximate), Expires: 12/26/2022 Start: 10-26-2022 End: 12-26-2022 SYPHILIS TOTAL W/REFLEX SYPHILIS TOTAL W/REFLEX Lab Routine Encounter for supervision of other normal in first trimester Expected: 10/26/2022 (Approximate), Expires: 12/26/2022 [facility] Work Phone: Comment on above: Expected: 10/26/2022 (Approximate), Expires: 12/26/2022 Start: 09-21-2022 DEPRESSION ASSESSMENT DEPRESSION ASS ESSMENT [facility] Start: 06-20-2022 End: 08-20-2022 CBC panel - Blood by Automated count CBC Lab Routine Heterozygous factor V Leiden affecting , antepartum (HCC) 9 weeks gestation of Expected: 06/20/2022, Expires: 08/20/2022 [facility] Work Phone: Comment on above: Expected: 06/20/2022 , Expires: 08/20/2022 Start: 06-20-2022 End: 08-20-2022 Hepatitis B virus surface Ab [Presence] in Serum by Immunoassay HEP B SURF AG SCRN Lab Routine Heterozygous factor V Leiden affecting , antepartum (HCC) 9 weeks gestation of Expected: 06/20/2022, Expires: 08/20/2022 [facility] Work Phone: Comment on above: Expected: 06/20/2022 , Expires: 08/20/2022 Start: 06-20-2022 End: 08-20-2022 Hepatitis C virus Ab [Presence] in Serum HEP C AB IA W/CONF SCRN Lab Routine Heterozygous factor V Leiden affecting , antepartum (HCC) 9 weeks gestation of Expected: 06/20/2022, Expires: 08/20/2022 [facility] Work Phone: Comment on above: Expected: 06/20/2022 , Expires: 08/20/2022 Start: 06-20-2022 End: 08-20-2022 HIV 1+2 Ab [Presence] in Serum or Plasma by Immunoassay HIV 1 2 COMBO(AG/AB),WITH REFLEX TO DIFFERENTIATION Lab Routine Heterozygous factor V Leiden affecting , antepartum (HCC) 9 weeks gestation of Expected: 06/20/2022, Expires: 08/20/2022 [facility] Work Phone: Comment on above: Expected: 06/20/2022 , Expires: 08/20/2022 Start: 06-20-2022 End: 08-20-2022 RUBELLA IGG AB RUBELLA IGG AB Lab Routine Heterozygous factor V Leiden affecting , antepartum (HCC) 9 weeks gestation of Expected: 06/20/2022, Expires: 08/20/2022 [facility] Work Phone: Comment on above: Expected: 06/20/2022 , Expires: 08/20/2022 Start: 06-20-2022 End: 08-20-2022 SYPHILIS TOTAL W/REFLEX SYPHILIS TOTAL W/REFLEX Lab Routine Heterozygous factor V Leiden affecting , antepartum (HCC) 9 weeks gestation of Expected: 06/20/2022, Expires: 08/20/2022 [facility] Work Phone: Comment on above: Expected: 06/20/2022 , Expires: 08/20/2022 Start: 06-20-2022 End: 08-20-2022 TYPE + SCREEN TYPE + SCREEN Blood Bank Routine Heterozygous factor V Leiden affecting , antepartum (HCC) 9 weeks gestation of Expected: 06/20/2022, Expires: 08/20/2022 [facility] Work Phone: Comment on above: Expected: 06/20/2022 , Expires: 08/20/2022 Start: 05-22-2022 Influenza vaccination INFLUENZA (#1) [facility] Start: 2022 End: 07-13-2022 TYPE + SCREEN [facility] Work Phone: Comment on above: Expected: 2022 , Expires: 07/13/2022 Start: 09-21-2021 DEPRESSION ASSESSMENT DEPRESSION ASS ESSMENT [facility] Start: 2015 Hepatitis B Vaccine (1 of 3 - 19+ 3-dose series) Hepatitis B Vaccine (1 of 3 - 19+ 3-dose series) [facility] Start: 2015 Urine microalbumin profile DTAP,TDAP,TD (1 - Tdap) [facility] Start: 2014 Anxiety Screening Anxiety Screening [facility] Start: 2014 Depression Screening Depression Scre ening [facility] Start: 2014 HEPATITIS C SCREENING HEPATITIS C DE JARED [facility] Start: 2014 HIV SCREENING HIV SCREENING [facility] Start: 2010 PEDS TO ADULT TRANSI TION ANNUAL ASSESSMENT PEDS TO ADULT TRANSITION ANNUAL ASSESSMENT [facility] Start: 2008 Adult depression screening assessment DEPRESSION SCREENING [facility] Start: 2008 PEDS TO ADULT TRANSI TION INITIAL DISCUSSION PEDS TO ADULT TRANSITION INITIAL DISCUSSION [facility] Start: 2007 HPV VACCINE (1 - 2-d ose series) HPV VACCINE (1 - 2-dose series) [facility] Start: 2006 MENINGOCOCCAL B: Con science instructor based on risk (1 of 2 - Risk Bexsero 2-dose series) MENINGOCOCCAL B: Consider based on risk (1 of 2 - Risk Bexsero 2-dose series) [facility] Start: 2005 HPV VACCINE (1 - 2-d ose series) HPV VACCINE (1 - 2-dose series) [facility] Start: 1996 COVID-19 VACCINE (#1) COVID-19 VACCI NE (#1) [facility] Start: 1996 HEPATITIS B (1 of 3 - 3-dose series) [facility] End: 2023 Choriogonadotropin.beta subunit [Units/volume] in Serum or Plasma HCG QUANTITATIVE Lab Routine Early stage of 2x per week for 2 Occurrences starting 2022 until 2023 [facility] Work Phone: Comment on above: 2x per week for 2 Oc currences starting 2022 until 2023 Choriogonadotropin.b eta subunit [Units/volume] in Serum or Plasma HCG QUANTITATIVE Lab Routine Early stage of 2022 12:14 PM EDT [facility] Work Phone: OBSTETRIC ULTRASOUND WHI OBSTETR IC ULTRASOUND [facility]I Anc Imaging Routine with uncertain dates in first trimester Ordered: 05/16/2022 [facility] Work Phone: Comment on above: Ordered: 05/16/2022 OBSTETRIC ULTRASOUND WHI OBSTETR IC ULTRASOUND WHI Anc Imaging Routine Heterozygous factor V Leiden affecting , antepartum (HCC) 9 weeks gestation of Ordered: 06/20/2022 [facility] Work Phone: Comment on above: Ordered: 06/20/2022 Patient Education [facility] Work Phone: Patient referral [facility] Work Phone: ROUTINE, GR OUP B STREP PCR ROUTINE, GROUP B STREP PCR Microbiology Routine 35 weeks gestation of Supervision of high risk in third trimester 12/19/2022 11:36 AM EDT [facility] Work Phone: [facility] Immunizations Immunization Date Immunization Notes Care Provider Fa cility 01-01-2023 measles, mumps and rubella virus vaccine No Primary Care Physician [place] 10-23-2022 tetanus toxoid, redu abe diphtheria toxoid, and acellular pertussis vaccine, adsorbed Dione Collins MD Work Phone: [facility] 03-18-2016 measles, mumps and rubella virus vaccine ALEXX COFFEY Work Phone: [place] Payers Date Payer Category Payer Self-pay [id number] 2024 Unknown [id number] 2022 Unknown 2013 Unknown [id number] Medicaid MEDICAID [id number] Private Health Insurance AETNA [id number] Unknown ANTHEM [id number] Unknown [id number] Unknown [id number] Unknown [id number] Unknown [id number]. [id number] Social History Date Type Detail Facility [facility] Start: 09-23-2022 End: 12-30-2022 Tobacco smoking consumption unknown [place] Start: 04-22-2016 End: 2022 Tobacco smoking status NHIS Never smoked tobacco [facility] Work Phone: Start: 04-22-2016 End: 2022 Tobacco use and exposure Smokeless tobacco non-user [facility] Work Phone: Start: 02-12-2021 End: 2022 Alcohol intake Current non-drinker of alcohol (finding) [facility] Start: 1995 Sex Assigned At Not on file [facility] Start: 05-28-2022 End: 09-23-2024 Alcohol intake Ex-drinker (finding) [facility] Start: 05-28-2022 History SDOH Alcohol Comment Socially [facility] Start: 05-28-2022 Education 21 [facility] Start: 04-26-2022 [facility] Start: 05-18-2022 End: 07-18-2022 Exposure to SARS-CoV-2 (event) Not sure [facility] Work Phone: Start: 1995 Sex Assigned At Female [facility] Start: 02-09-2023 End: 09-23-2024 History of Social function [facility] Start: 02-09-2023 End: 09-23-2024 Tobacco use panel [facility] National Score (1-100), lower number is lower risk 69 [facility] Goals Date Patient Goal Desired Activity /State Clinical Notes 05-09-2022 to 09-23-2024 Jamarcus Sommers RT(R) - 09/23/2024 12:00 PM Keyshawn Keys APRN.TIRE RECAPPING MACHINE OPERATOR - 09/23/2024 11:46 AM EST Note Date & Type Note Facility 09-23-2024 History of Present illness Narrative Radiology Service Progress Note PATIENT NAME: Mirta Lacey DATE OF SERVICE: September 23, 2024 TIME: 11:49 AM PATIENT IDENTITY VERIFICATION COMPLETED USING TWO (2) IDENTIFIERS: Name and Date of confirmed by patient verbally. FALL SCREENING: Has the patient had 2 falls in the last year or 1 fall with injury or currently using an Ambulatory Assistive Device (Walker, Cane, Wheelchair, Crutches, etc.)? No PATIENT GENDER DATA: Female. status: : No status: NO. PATIENT RELEVANT IMPLANT DATA REVIEWED: Not Applicable PATIENT PRESENTS WITH AN IMPLANTABLE OR ATTACHED HEEL BRUSHER: No RADIOLOGY DEPARTMENT: General X-ray: Exam(s) Completed: Upper Extremity X-Ray(s): Fingers/Thumb, right PERIPHERAL IV DATA: Not applicable SIGNED BY: RT Erick(R) September 23, 2024 11:49 AM documented in this encounter [facility] 09-23-2024 Note HNO ID: [id number] Author: JAMARCUS SOMMERS RT(R) Service: Radiology Author Type: Technologist Type: Progress Notes Filed: 09/23/2024 11:56 Note Text: Radiology Service Progress Note PATIENT NAME: Mirta Lacey DATE OF SERVICE: September 23, 2024 TIME: 11:49 AM PATIENT IDENTITY VERIFICATION COMPLETED USING TWO (2) IDENTIFIERS: Name and Date of confirmed by patient verbally. FALL SCREENING: Has the patient had 2 falls in the last year or 1 fall with injury or currently using an Ambulatory Assistive Device (Walker, Cane, Wheelchair, Crutches, etc.)? No PATIENT GENDER DATA: Female. status: : No status: NO. PATIENT RELEVANT IMPLANT DATA REVIEWED: Not Applicable PATIENT PRESENTS WITH AN IMPLANTABLE OR ATTACHED HEEL BRUSHER: No RADIOLOGY DEPARTMENT: General X-ray: Exam(s) Completed: Upper Extremity X-Ray(s): Fingers/Thumb, right PERIPHERAL IV DATA: Not applicable SIGNED BY: RT Erick(R) September 23, 2024 11:49 AM [facility] 09-23-2024 Note HNO ID: [id number] Author: KEYSHAWN MOSELEY APRN.TIRE RECAPPING MACHINE OPERATOR Service: ? Author Type: Nurse Practitioner Type: Progress Notes Filed: 09/23/2024 12:28 Note Text: Subjective HPI Nontoxic-appearing female presents urgent care chief complaint URI. Duration of symptoms 6 days. Associated headache bilateral ear pain sore throat nasal congestion cough. Symptoms are improving. Presents today with ear pain. Additionally has a right finger injury. Injured it last night during volleyball. Has bruising and swelling over PIP joint fourth digit right hand. [id number]. Denies fracture or surgeries previously. No fevers chest pain shortness of breath. Denies chance of . Is not breast-feeding. Past medical history prescription medications allergies reviewed. .Patient presents with: Head Congestion: Sinus congestion, BEGUM, cough x6 days, L ear pain, ST Finger Injury: R hand ring finger injury x last night PAST MEDICAL HISTORY Diagnosis Date Asthma Blood dyscrasia Factor V Leiden carrier (HCC) Protein S deficiency (HCC) PAST SURGICAL HISTORY Procedure Laterality Date TONSILLECTOMY AND ADENOIDECTOMY ALLERGIES [employer] MEDICATIONS escitalopram oxalate (LEXAPRO) 10 mg tablet Take 1.5 tablets by mouth every afternoon. famotidine (PEPCID ORAL) Take by mouth. ALBUTEROL INHALATION Inhale as instructed. CETIRIZINE HCL (ZYRTEC ORAL) Take by mouth once daily. Norethindrone, Contraceptive, (ORTHO MICRONOR) 0.35 mg tablet Take 1 tablet by mouth once daily. (Patient not taking: Reported on 09/23/2024) amoxicillin (AMOXIL) 250 mg/5 mL suspension TAKE 10 ML BY MOUTH THREE TIMES A DAY FOR 10 DAYS (Patient not taking: Reported on 09/23/2024) predniSONE (DELTASONE) 20 mg tablet Take by mouth. (Patient not taking: Reported on 09/23/2024) enoxaparin (LOVENOX) 40 mg/0.4 mL Inject 0.4 mL subcutaneously once daily. (Patient not taking: Reported on 09/23/2024) ondansetron (ZOFRAN) 4 mg tablet Take 1 tablet by mouth every 8 hours as needed for nausea/vomiting. (Patient not taking: Reported on 09/23/2024) [id number] fum-folic ac-om3 28 mg iron- 800 mcg cmpk Take 1 tablet by mouth once daily. (Patient not taking: Reported on 09/23/2024) FAMILY HISTORY Problem Relation Age of Onset Heart Attack Mother Arthritis Father No Known Problems Sister Scoliosis Brother other (pompay) Brother COPD Maternal Grandmother Asthma Maternal Grandmother Hypertension Maternal Grandmother other (pre diabetes) Maternal Grandmother No Known Problems Maternal Grandfather Scoliosis Paternal Grandmother Arthritis Paternal Grandmother Heart Failure Paternal Grandfather No Known Problems Daughter Social History Tobacco Use Smoking status: Never Smokeless tobacco: Never Vaping Use Vaping status: Never Used Substance Use Topics Alcohol use: Not Currently Comment: Socially Drug use: No BP 123/88 Pulse 67 Temp 36.3 ?C (97.3 ?F) Resp 18 Wt 87 kg (191 lb 12.8 oz) LMP 02/28/2022 SpO2 99% BMI 32.92 kg/m? Review of Systems Constitutional: Negative for chills, fever and malaise/fatigue. HENT: Positive for congestion, ear pain and sore throat. Negative for ear discharge and sinus pain. Eyes: Negative for blurred vision, pain, discharge and redness. Respiratory: Positive for cough. Negative for hemoptysis, sputum production, shortness of breath, wheezing and stridor. Cardiovascular: Negative for chest pain. Gastrointestinal: Negative for abdominal pain, diarrhea, nausea and vomiting. Musculoskeletal: Positive for joint pain. Negative for myalgias. Skin: Negative for itching and rash. Neurological: Positive for headaches. Negative for dizziness. Objective Physical Exam Constitutional: General: She is not in acute distress. Appearance: She is not diaphoretic. HENT: Head: Normocephalic. Jaw: No trismus, tenderness, swelling or pain on movement. Right Ear: Tympanic membrane, ear canal and external ear normal. Left Ear: Tympanic membrane, ear canal and external ear normal. Mouth/Throat: Mouth: Mucous membranes are moist. Pharynx: Oropharynx is clear. Uvula midline. No pharyngeal swelling, oropharyngeal exudate, posterior oropharyngeal erythema or uvula swelling. Eyes: Conjunctiva/sclera: Conjunctivae normal. Pupils: Pupils are equal, round, and reactive to light. Cardiovascular: Rate and Rhythm: Normal rate and regular rhythm. Heart sounds: Normal heart sounds. Pulmonary: Effort: Pulmonary effort is normal. No tachypnea, accessory muscle usage or respiratory distress. Breath sounds: Normal breath sounds. No stridor. No wheezing, rhonchi or rales. Abdominal: General: There is no distension. Palpations: Abdomen is soft. Tenderness: There is no abdominal tenderness. There is no guarding or rebound. Musculoskeletal: Hands: Cervical back: Normal range of motion and neck supple. No edema, erythema, rigidity or tenderness. No pain with movement. (more content not included)... [facility] 09-23-2024 History of Present illness Narrative Images from the original note were not included. Subjective HPI Nontoxic-appearing female presents urgent care chief complaint URI. Duration of symptoms 6 days. Associated headache bilateral ear pain sore throat nasal congestion cough. Symptoms are improving. Presents today with ear pain. Additionally has a right finger injury. Injured it last night during volleyball. Has bruising and swelling over PIP joint fourth digit right hand. [id number]. Denies fracture or surgeries previously. No fevers chest pain shortness of breath. Denies chance of . Is not breast-feeding. Past medical history prescription medications allergies reviewed. .Patient presents with: Head Congestion: Sinus congestion, BEGUM, cough x6 days, L ear pain, ST Finger Injury: R hand ring finger injury x last night PAST MEDICAL HISTORY Diagnosis Date Asthma Blood dyscrasia Factor V Leiden carrier (HCC) Protein S deficiency (HCC) PAST SURGICAL HISTORY Procedure Laterality Date TONSILLECTOMY & ADENOIDECTOMY <AGE 12 2003 ALLERGIES [employer] MEDICATIONS escitalopram oxalate (LEXAPRO) 10 mg tablet Take 1.5 tablets by mouth every afternoon. famotidine (PEPCID ORAL) Take by mouth. ALBUTEROL INHALATION Inhale as instructed. CETIRIZINE HCL (ZYRTEC ORAL) Take by mouth once daily. Norethindrone, Contraceptive, (ORTHO MICRONOR) 0.35 mg tablet Take 1 tablet by mouth once daily. (Patient not taking: Reported on 09/23/2024) amoxicillin (AMOXIL) 250 mg/5 mL suspension TAKE 10 ML BY MOUTH THREE TIMES A DAY FOR 10 DAYS (Patient not taking: Reported on 09/23/2024) predniSONE (DELTASONE) 20 mg tablet Take by mouth. (Patient not taking: Reported on 09/23/2024) enoxaparin (LOVENOX) 40 mg/0.4 mL Inject 0.4 mL subcutaneously once daily. (Patient not taking: Reported on 09/23/2024) ondansetron (ZOFRAN) 4 mg tablet Take 1 tablet by mouth every 8 hours as needed for nausea/vomiting. (Patient not taking: Reported on 09/23/2024) -rokh fum-folic ac-om3 28 mg iron- 800 mcg cmpk Take 1 tablet by mouth once daily. (Patient not taking: Reported on 09/23/2024) FAMILY HISTORY Problem Relation Age of Onset Heart Attack Mother Arthritis Father No Known Problems Sister Scoliosis Brother other (pompay) Brother COPD Maternal Grandmother Asthma Maternal Grandmother Hypertension Maternal Grandmother other (pre diabetes) Maternal Grandmother No Known Problems Maternal Grandfather Scoliosis Paternal Grandmother Arthritis Paternal Grandmother Heart Failure Paternal Grandfather No Known Problems Daughter Social History Tobacco Use Smoking status: Never Smokeless tobacco: Never Vaping Use Vaping status: Never Used Substance Use Topics Alcohol use: Not Currently Comment: Socially Drug use: No BP 123/88 Pulse 67 Temp 36.3 C (97.3 F) Resp 18 Wt 87 kg (191 lb 12.8 oz) LMP 02/28/2022 SpO2 99% BMI 32.92 kg/m Review of Systems Constitutional: Negative for chills, fever and malaise/fatigue. HENT: Positive for congestion, ear pain and sore throat. Negative for ear discharge and sinus pain. Eyes: Negative for blurred vision, pain, discharge and redness. Respiratory: Positive for cough. Negative for hemoptysis, sputum production, shortness of breath, wheezing and stridor. Cardiovascular: Negative for chest pain. Gastrointestinal: Negative for abdominal pain, diarrhea, nausea and vomiting. Musculoskeletal: Positive for joint pain. Negative for myalgias. Skin: Negative for itching and rash. Neurological: Positive for headaches. Negative for dizziness. Objective Physical Exam Constitutional: General: She is not in acute distress. Appearance: She is not diaphoretic. HENT: Head: Normocephalic. Jaw: No trismus, tenderness, swelling or pain on movement. Right Ear: Tympanic membrane, ear canal and external ear normal. Left Ear: Tympanic membrane, ear canal and external ear normal. Mouth/Throat: Mouth: Mucous membranes are moist. Pharynx: Oropharynx is clear. Uvula midline. No pharyngeal swelling, oropharyngeal exudate, posterior oropharyngeal erythema or uvula swelling. Eyes: Conjunctiva/sclera: Conjunctivae normal. Pupils: Pupils are equal, round, and reactive to light. Cardiovascular: Rate and Rhythm: Normal rate and regular rhythm. Heart sounds: Normal heart sounds. Pulmonary: Effort: Pulmonary effort is normal. No tachypnea, accessory muscle usage or respiratory distress. Breath sounds: Normal breath sounds. No stridor. No wheezing, rhonchi or rales. Abdominal: General: There is no distension. Palpations: Abdomen is soft. Tenderness: There is no abdominal tenderness. There is no guarding or rebound. Musculoskeletal: Hands: Cervical back: Normal range of motion and neck supple. No edema, erythema, rigidity or tenderness. No pain with movement. Normal range of motion. Comments: Pain with palpation highlighted area. Ecchymosis noted. Mild edema noted. Neurovascular intact. No weaknesses. Full range of motion. No pain with palpation over metacarpals or wrist. Lymphadenopathy: Cervical: No cervical adenopathy. Skin: General: Skin is warm and dry. Neurological: Mental Status: She is alert and oriented to person, place, and time. ASSESSMENT/PLAN: 1. Injury of finger of right hand, initial encounter - ICD9: 959.5, ICD10: S69.91XA (primary diagnosis) - XR DIGIT GENERAL 3V FRONTAL/LAT/OBL RIGHT IMPRESSION: No acute osseous abnormality 2. Viral illness - ICD9: 079.99, ICD10: B34.9 - Discussed viral etiology and rationale for treatment. - Symptomatic treatment with prn analgesia - Supportive care with fluids and rest No acute fractures noted. No evidence of bacterial infection. Treat as sprain/contusion. Follow-up 5 to 7 days symptoms do not improve. Additionally treat as viral illness. Follow-up 48 hours symptoms do not progressively improve. Patient was educated on supportive therapies. Patient will follow up with primary care provider as needed. Patient was instructed to immediately proceed to emergency room for any new, worsening, or symptoms lasting longer than anticipated. The patient's clinical presentation is otherwise unremarkable at this time. Based on exam and clinical finding, the patient is stable for discharge. Plan of care was discussed with patient. Patient verbalizes understanding and agrees to plan of care. This note was generated using [employer] software. It may contain errors in wording, punctuation, or spelling. Keyshawn Moseley APRN.TIRE RECAPPING MACHINE OPERATOR documented in this encounter [facility] 08-19-2023 Discharge summary Note Date/Time August 19, 2023 6:12am [facility] Medical Records Department [address] [place] [address] Emergency Department Summary 08/19/23 MR#: [id number] Acct: [id number] Name: MIRTA LACEY Rep #:[id number] : 1995 28 From: Praveen Fairchild DO PCP: Care Physician,No Primary Status :REG ER Location: ED HPI Narrative Narrative: Mirta Lacey 1995 HPI: Patient is a 28-year-old female with past medical history of asthma managed withan albuterol inhaler and factor V Leiden deficiency. ?She states her 7-year-old's been sick with sore throat for a few days and she has noticed congestion drainage and cough during this time as well.? She states it is at the point where she cannot sleep secondary to her cough and symptoms and has concerned she may have COVID or influenza or possible pneumonia and therefore comes in for evaluation Review of systems: Review of systems is positive for subjective fevers and chills with nasal congestion sore throat cough and ear pain Review of systems is negative for abdominal pain nausea vomiting chest pain Physical exam: General: Awake alert no acute distress Heart: Regular rate and rhythm Lungs: Breath sounds are diminished throughout with faint expiratory wheeze in the upper and lower lobes bilaterally without nasal flaring retractions or accessory muscle use HEENT: Bilateral TMs are retracted but show no secondary changes to suggest infection.? Nasal mucosa is hyperemic and boggy with enlarged inferior nasal turbinates.? There is cobblestoning the posterior pharynx consistent with sinus drainage but no airway edema or compromise Extremities: No asymmetric edema no pitting edema negative Homans' sign bilaterally Medical decision makin view chest x-ray as interpreted by the emergency medicine physician reveals noacute infiltrate pneumothorax pleural effusion or widening of the mediastinum Patient arrived to the ER in no acute respiratory distress satting well on room air. ?Differential diagnosis is for COVID versus influenza versus other viral upper respiratory tract infection versus pneumonia versus asthma exacerbation.? A chest x-ray was obtained to rule out potential lung infection and revealed no acute findings. ?She was given prednisone Robitussin AC and a DuoNeb treatment and on reevaluation did have moderate improvement of symptoms. ?Patient is not in respiratory distress she is not requiring supplemental oxygen she does not have lung pathology such as pneumonia or pneumothorax and therefore does not need admitted and is otherwise safe for discharge. Diagnosis: Upper respiratory tract infection Asthma exacerbation Factor V Leiden deficiency [facility] Medical History (Updated 08/19/23 @ 06:[address] Praveen Fairchild, DO) 37 or more weeks gestation of Acute otitis media, right Acute pharyngitis, unspecified Acute sinusitis, unspecified Anemia Asthma Factor V deficiency Protein S deficiency affecting Home Medications albuterol 90 mcg/actuation aerosol inhaler 90 mcg inhalation Q6H PRN PRN bronchitis 12/30/22 [History Last Taken 12/30/22 08:00 2 inh] enoxaparin 40 mg/0.4 mL subcutaneous syringe (Lovenox) 40 mg subcut DAILY factorV 12/30/22 [History Last Taken 12/28/22 20:00 40 mg] Allergy/AdvReac Type Severity Reaction Status Date / Time No Known Allergies Allergy Verified 12/30/22 17:51 Surgical History History of surgery Social History Smoking Status: Never smoker alcohol intake: current alcohol intake frequency: a few times a month Discharge Plan Triage ED Provider: Praveen Fairchild Dx/Rx/DC Orders Clinical Impression: Asthma exacerbation, Viral upper respiratory tract infection with cough, FactorV Leiden Prescriptions: No Action albuterol 90 mcg/actuation Aerosol 90 mcg INHALATION Q6H PRN PRN (Reason: bronchitis) enoxaparin [Lovenox] 40 mg/0.4 mL Syringe 40 mg SUBCUT DAILY Primary Care Provider: Care Physician,No Primary Referrals: Care Physician,No Primary [Primary Care Provider] - Disposition Disposition: Home, Self Care What to do if you have Problems For any increased pain, shortness of breath, bleeding, nausea or vomiting, chestpain, or any unexpected problems, contact your Primary Care Provider. Call [facility] ([phone]) or report to the closest Emergency Room. Call 911 if necessary. 08/19/23 0611 <Electronically signed by Praveen Fairchild DO> Cosigner Signature (if applicable): CC: No Primary Care Physician ~ Signed [place] Work Phone: 1(631) 893-793204-12-2023 History of Present illness Narrative* Cristina Anaya RN - 12/31/2022 8:30 AM EDT Patient delivered via by Dr. Negron on 12/31/22 at [facility]. See OB history. Cristina Anaya RN documented in this encounter[facility]23 Procedure [facility]04[facility]2023 History and physical note Author Dr. 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 Maternal Data Information Final ERICA: 01/17/23 Gestational age: 37&3 [facility] Medical History (Updated 12/30/22 @ 20:[address] 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 Home Medications albuterol 90 mcg/actuation aerosol inhaler 90 mcg inhalation Q6H PRN PRN bronchitis 12/30/22 [History Last Taken 12/30/22 08:00 2 inh] enoxaparin 40 mg/0.4 mL subcutaneous syringe (Lovenox) 40 mg subcut DAILY factorV 12/30/22 [History Last Taken 12/28/22 20:00 40 mg] Allergy/AdvReac Type Severity Reaction Status Date / Time No Known Allergies Allergy Verified 12/30/22 17:51 Surgical History History of surgery Social History Smoking Status: Never smoker alcohol intake: current alcohol intake frequency: a few times a month History Elective abortions Hx Para 1 Spontaneous abortions Hx # Term Pregnancies Ectopic pregnancies Hx # Pregnancies Multiple births # of living children NST FHR Rate Baby A Baseline: 125 Variability:: Moderate Accelerations:: 15 x 15 Decelerations:: None Uterine Activity:: quiet Vital Signs Vital Signs Vital Signs: 12/30/22 17:31 12/30/22 17:31 12/30/22 17:31 Temperature 97.5 F L Pulse Rate 67 Blood Pressure 130/89 H BP Systolic 130 BP Diastolic 89 12/30/22 19:43 12/30/22 19:43 Temperature Pulse Rate 60 Blood Pressure 133/81 H BP Systolic 133 BP Diastolic 81 Weight Weight: 173 lb 15.115 oz Body Mass Index (BMI) 29.8 Physical Exam Const alert, oriented x3 and no apparent distress GI soft to palpation, non-tender and non-distended Inspection: gravid external exam normal Narrative: cvx - 3/70/-1 Extremity normal to inspection Labs Labs Labs: Blood Type O POSITIVE Antibody Screen NEGATIVE Hct 40.1 % (37-47) Hgb 13.5 g/dl (12.0-15.0) Syphilis Total Ab Pending Rubella IgG Antibody 8.4 IU/mL Hep Bs Antigen Negative (Negative) Rhogam given: No Miscellaneous Test see [facility] H&P Assessment & Plan (1) 37 or more weeks gestation of : COMMENT: G@P1001 @ 37&3 (2) Protein S deficiency affecting : (3) Factor V deficiency: (4) Asthma: PLAN: Plan Admit to L&D as ROM+ positive Expectant management & will augment with pitocin if needed Pain - declines epidural at this time GBS negative Thrombophilia - plan for PP lovenox Routine care 12/30/222043 <Electronically signed by Diana Negron MD> Cosigner Signature (if applicable): CC: Dr. Diana Negron MD; No Primary Care Physician~ Signed [place] Work Phone: 1(383) 263-156504-11-2023 Miscellaneous Notes* Telephone Encounter - Diana Negron MD - 12/30/2022 4:51 PM EDT Noted & agree Diana Negron MD * Telephone Encounter - Chetna Pulido LPN - 12/30/2022 4:42 PM EDT Ob patient is 37w3d and called stating that she has had contractions that are coming every approx. Every 6 minutes for the past 2 hours and c/o increased pelvic pressure. Denies LOF. Patient was 2 / 70% / -2 at appointment on 12/25. Patient was instructed to go to [facility] L&D documented [facility] this encounter[facility]04-[facility]23 Miscellaneous Notes* Quick Notes - Brooklyn Gaines MD - 12/25/2022 1:46 PM EDT DM- Pt doing well today. Denies Vaginal Bleeding, Leaking fluid, or contractions. Pt reports good movement. IOL scheduled for 39+ weeks, AROM and PIT. Kick counts and labor reviewed. Continue Lovenox. RTO one week. Brooklyn Olguin MD documented in this encounter[facility] Center04-06-2023 Instructions* Patient Instructions* Felice Orellana Cma - 12/25/2022 1:30 PM EDT SEQUENTIAL SCREENINGS [facility] offers sequential screenings for women who are interested in screenings for chromosomal abnormalities and certain defects during a . The sequential screen combinesultrasound and blood tests to determine the risk of chromosomal abnormalities, including Down's Syndrome (Trisomy 21) and Trisomy 18, as well as open neural tube defects including spina bifida. Ultrasound examination is performed between 11 weeks and 13 weeks gestational age. Blood tests are drawn after the ultrasound and again later in the between 15 and 21 weeks gestational age. Please let your physician know if you are interested in this testing. It will require an appointment withour lead injection mold technician. This is not an ultrasound performed by a physician in our office during a routine visit. SIGNS AND SYMPTOMS OF LABOR 1. Contractions every 10 minutes or more often 2. Clear, pink, or brownish fluid (water) leaking from vagina 3. Feeling that baby is pushing down, pressure 4. Low, dull backache 5. Cramps that feel like a period 6. Cramps with or without diarrhea If you notice any of the above symptoms, contact our office at [phone] and ask to speak with anurse. After hours, you can call doctors registry at [phone] OR call [facility] at [phone] ask to have the doctor orientation and mobility specialist paged. If you consider this an emergency, dial 91-0 or go to your nearest emergency department. NEED HELP? Are you dealing with a violent or abusive relationship? Are you a victim of rape or sexual assult? Call [facility] ([place]) 24 hour Crisis Hotline: 798.506.6597 or 086-499-9946. MANUAL Your Guide to a Healthy manual is now on-line. Visit [email or web address] to download your free copy documented in this encounterUc Medical Center03-31-2023 Miscellaneous Notes* Quick Notes - Brooklyn Gaines MD - 12/19/2022 11:29 AM EDT DM- Pt doing well today. Denies Vaginal Bleeding, Leaking fluid, or regular contractions. Pt reports good movement. IOL 39 weeks- will need set up at next visit. Kick counts and labor reviewed.Continue Lovenox at this time. Ultrasound- confirms vertex. GBS today. RTO one week. Growth us reviewed. Brooklyn Olguin MD documented in this encounterUc [facility] Center03-31-2023 Instructions* Patient Instructions* Gladys Gamboa MA - 12/19/2022 11:15 AM EDT SEQUENTIAL SCREENINGS [facility] offers sequential screenings for women who are interested in screenings for chromosomal abnormalities and certain defects during a . The sequential screen combinesultrasound and blood tests to determine the risk of chromosomal abnormalities, including Down's Syndrome (Trisomy 21) and Trisomy 18, as well as open neural tube defects including spina bifida. Ultrasound examination is performed between 11 weeks and 13 weeks gestational age. Blood tests are drawn after the ultrasound and again later in the between 15 and 21 weeks gestational age. Please let your physician know if you are interested in this testing. It will require an appointment withour lead injection mold technician. This is not an ultrasound performed by a physician in our office during a routine visit. SIGNS AND SYMPTOMS OF LABOR 1. Contractions every 10 minutes or more often 2. Clear, pink, or brownish fluid (water) leaking from vagina 3. Feeling that baby is pushing down, pressure 4. Low, dull backache 5. Cramps that feel like a period 6. Cramps with or without diarrhea If you notice any of the above symptoms, contact our office at [phone] and ask to speak with anurse. After hours, you can call doctors registry at [phone] OR call [facility] at [phone] ask to have the doctor orientation and mobility specialist paged. If you consider this an emergency, dial 91-2 or go to your nearest emergency department. NEED HELP? Are you dealing with a violent or abusive relationship? Are you a victim of rape or sexual assult? Call [facility] ([place]) 24 hour Crisis Hotline: 865.951.5974 or 616-034-9269. MANUAL Your Guide to a Healthy manual is now on-line. Visit [email or web address] to download your free copy documented in this encounterUc Medical Center03-16-2023 Miscellaneous Notes* Quick Notes - Brooklyn Gaines MD - 12/04/2022 11:30 AM EDT DM- Pt doing well today. Denies Vaginal Bleeding, Leaking fluid, or contractions. Pt reports good movement. Had growth us today. Continue lovenox for proteinS and factor V. RTO 2 wks. Kick counts reviewed. Brooklyn Olguin MD documented in this encounterUc [facility] Center03-16-2023 Instructions* Patient Instructions* Gladys Gamboa MA - 12/04/2022 11:05 AM EDT SEQUENTIAL SCREENINGS [facility] offers sequential screenings for women who are interested in screenings for chromosomal abnormalities and certain defects during a . The sequential screen combinesultrasound and blood tests to determine the risk of chromosomal abnormalities, including Down's Syndrome (Trisomy 21) and Trisomy 18, as well as open neural tube defects including spina bifida. Ultrasound examination is performed between 11 weeks and 13 weeks gestational age. Blood tests are drawn after the ultrasound and again later in the between 15 and 21 weeks gestational age. Please let your physician know if you are interested in this testing. It will require an appointment withour lead injection mold technician. This is not an ultrasound performed by a physician in our office during a routine visit. SIGNS AND SYMPTOMS OF LABOR 1. Contractions every 10 minutes or more often 2. Clear, pink, or brownish fluid (water) leaking from vagina 3. Feeling that baby is pushing down, pressure 4. Low, dull backache 5. Cramps that feel like a period 6. Cramps with or without diarrhea If you notice any of the above symptoms, contact our office at [phone] and ask to speak with anurse. After hours, you can call doctors registry at [phone] OR call [facility] at [phone] ask to have the doctor orientation and mobility specialist paged. If you consider this an emergency, dial 9-- or go to your nearest emergency department. NEED HELP? Are you dealing with a violent or abusive relationship? Are you a victim of rape or sexual assult? Call [facility] ([place]) 24 hour Crisis Hotline: 513.380.9379 or 132-308-7959. MANUAL Your Guide to a Healthy manual is now on-line. Visit [email or web address] to download your free copy documented in this encounterUc Medical Center03-02-2023 Miscellaneous Notes* Quick Notes - Sierra Obregon MD - 11/20/2022 4:16 PM EST RR- No VB/LOF. No ctxs. Some pelvic pain migue. w/ movement. On lovenox for factor V leiden deficiency. Will check growth US. F/u in 2-3 weeks or prn. Sierra Obregon MD documented in this encounterUc [facility] Center03-02-2023 Instructions* Patient Instructions* Noa Mace Ma - 11/20/2022 4:00 PM EST SEQUENTIAL SCREENINGS [facility] offers sequential screenings for women who are interested in screenings for chromosomal abnormalities and certain defects during a . The sequential screen combinesultrasound and blood tests to determine the risk of chromosomal abnormalities, including Down's Syndrome (Trisomy 21) and Trisomy 18, as well as open neural tube defects including spina bifida. Ultrasound examination is performed between 11 weeks and 13 weeks gestational age. Blood tests are drawn after the ultrasound and again later in the between 15 and 21 weeks gestational age. Please let your physician know if you are interested in this testing. It will require an appointment withour lead injection mold technician. This is not an ultrasound performed by a physician in our office during a routine visit. SIGNS AND SYMPTOMS OF LABOR 1. Contractions every 10 minutes or more often 2. Clear, pink, or brownish fluid (water) leaking from vagina 3. Feeling that baby is pushing down, pressure 4. Low, dull backache 5. Cramps that feel like a period 6. Cramps with or without diarrhea If you notice any of the above symptoms, contact our office at [phone] and ask to speak with anurse. After hours, you can call doctors registry at [phone] OR call [facility] at [phone] ask to have the doctor orientation and mobility specialist paged. If you consider this an emergency, dial 9-1-1 or go to your nearest emergency department. NEED HELP? Are you dealing with a violent or abusive relationship? Are you a victim of rape or sexual assult? Call [facility] ([place]) 24 hour Crisis Hotline: 334.215.1922 or 780-240-4294. MANUAL Your Guide to a Healthy manual is now on-line. Visit [email or web address] to download your free copy documented in this encounterUc Medical Center02-16-2023 Miscellaneous Notes* Quick Notes - Dione Collins MD - 11/06/2022 9:56 AM EST SW- Denies ctx, vb, lof. Good FM. Some pelvic pain and round ligament pain. Cont working with chiropractor. Discussed option for pelvic floor PT. Reviewed 28 wk labs. RTO 2 wks. Dione Collins DO documented in this encounterUc Medical Center02-16-2023 Instructions* Patient Instructions* Gladys Gamboa MA - 11/06/2022 9:21 AM EST SEQUENTIAL SCREENINGS [facility] offers sequential screenings for women who are interested in screenings for chromosomal abnormalities and certain defects during a . The sequential screen combinesultrasound and blood tests to determine the risk of chromosomal abnormalities, including Down's Syndrome (Trisomy 21) and Trisomy 18, as well as open neural tube defects including spina bifida. Ultrasound examination is performed between 11 weeks and 13 weeks gestational age. Blood tests are drawn after the ultrasound and again later in the between 15 and 21 weeks gestational age. Please let your physician know if you are interested in this testing. It will require an appointment withour lead injection mold technician. This is not an ultrasound performed by a physician in our office during a routine visit. SIGNS AND SYMPTOMS OF LABOR 1. Contractions every 10 minutes or more often 2. Clear, pink, or brownish fluid (water) leaking from vagina 3. Feeling that baby is pushing down, pressure 4. Low, dull backache 5. Cramps that feel like a period 6. Cramps with or without diarrhea If you notice any of the above symptoms, contact our office at [phone] and ask to speak with anurse. After hours, you can call doctors registry at [phone] OR call [facility] at [phone] ask to have the doctor orientation and mobility specialist paged. If you consider this an emergency, dial 0-4-7 or go to your nearest emergency department. NEED HELP? Are you dealing with a violent or abusive relationship? Are you a victim of rape or sexual assult? Call [facility] ([place]) 24 hour Crisis Hotline: 102.642.4905 or 377-684-9271. MANUAL Your Guide to a Healthy manual is now on-line. Visit [email or web address] to download your free copy documented in this encounterUc Medical Center01-30-2023 Miscellaneous Notes* Quick Notes - Divina Cope APRN.ANDRÉS - 10/20/2022 3:05 PM EST NICOLAS-S: Mirta Lacey is a 27 year old female who presents at 27w2d with ERICA:01/17/2023, by Ultrasound for a problem visit. Good FM. Here today with bilateral pelvic pain, suprapubic pain and vaginalpain. Pain is intermittent and worse with activity and standing. Stabbing, aching, and sharp. Improves with rest. Has been using ice and warm bath. Denies headache, visual changes, chest pain, shortness of breath, vaginal bleeding, leakage of fluid, or dysuria. O: See flow sheet Gen: No apparent distress Abd: Gravid, nontender Pubic symphysis pain with palpation ASSESSMENT/PLAN: 1. 27 weeks gestation of P: 1) PTL precautions reviewed and when to call 2) RTO as scheduled 3) Reviewed likely has suprapubic symphysis dysfunction and round ligament pain. Discussed normal discomforts of vs when to be concerned. Recommend abdominal support belt with ocular care aide as well as alternating heat and ice. Discussed that likely will not resolve until after but also when to be concerned. If no improvement in the next week discussed could offer physical therapy referral if pubic symphysis pain does not improve. Also reviewed stretches. Divina Cope APRN.CNM documented in this encounterUc Medical Center01-30-2023 Instructions* Patient Instructions* Divina Cope APRN.CNM - 10/20/2022 2:55 PM EST 1) Chiropractor for back pain. 2) Ice to back, on for 20 minutes, off for 20 minutes, for 2 hours 3) Pelvic tilts 4) Biofreeze or icy hot 5) Warm bath with 2 cups of epsom salt 6) Abdominal support belt ([employer], [employer], or check with insurance for coverage) Pubic symphysis dysfunction SIGNS AND SYMPTOMS OF LABOR 1. Contractions every 10 minutes or more often 2. Clear, pink, or brownish fluid (water) leaking from vagina 3. Feeling that baby is pushing down, pressure 4. Low, dull backache 5. Cramps that feel like a period 6. Cramps with or without diarrhea If you notice any of the above symptoms, contact our office at [phone] and ask to speak with anurse. After hours, you can call doctors registry at [phone] OR call [facility] at [phone] ask to have the doctor orientation and mobility specialist paged. If you consider this an emergency, dial -8 or go to your nearest emergency department. NEED HELP? Are you dealing with a violent or abusive relationship? Are you a victim of rape or sexual assult? Call [facility] ([place]) 24 hour Crisis Hotline: 450.798.4921 or 711-891-6068. MANUAL Your Guide to a Healthy manual is now on-line. Visit [email or web address] to download your free copy documented in this encounterUc Medical Center01-18-2023 Miscellaneous Notes* Telephone Encounter - Cristina Anaya RN - 10/08/2022 8:55 AM EST Spoke to patient and notified that last rx on 08/28/22 had 4 refills. Patient to check at pharmacy. Cristina Anaya RN documented in this encounterUc Medical Center01-05-2023 Miscellaneous Notes* Quick Notes - Dione Collins MD - 09/25/2022 5:08 PM EST SW- Tested positive for flu recently. SOB and wheezing developed so she was started on Prednisone after urgent care visit. H/o asthma. Feels her symptoms are improving. Denies fevers, chills, CP, SOB. No pain, vb, lof. +FM. 28 wk labs ordered. RTO 28 wk visit. Dione Collins DO documented in this encounterUc Medical Center01-05-2023 Instructions* Patient Instructions* Gladys Gamboa MA - 09/25/2022 4:28 PM EST SEQUENTIAL SCREENINGS [facility] offers sequential screenings for women who are interested in screenings for chromosomal abnormalities and certain defects during a . The sequential screen combinesultrasound and blood tests to determine the risk of chromosomal abnormalities, including Down's Syndrome (Trisomy 21) and Trisomy 18, as well as open neural tube defects including spina bifida. Ultrasound examination is performed between 11 weeks and 13 weeks gestational age. Blood tests are drawn after the ultrasound and again later in the between 15 and 21 weeks gestational age. Please let your physician know if you are interested in this testing. It will require an appointment withour lead injection mold technician. This is not an ultrasound performed by a physician in our office during a routine visit. SIGNS AND SYMPTOMS OF LABOR 1. Contractions every 10 minutes or more often 2. Clear, pink, or brownish fluid (water) leaking from vagina 3. Feeling that baby is pushing down, pressure 4. Low, dull backache 5. Cramps that feel like a period 6. Cramps with or without diarrhea If you notice any of the above symptoms, contact our office at [phone] and ask to speak with anurse. After hours, you can call doctors registry at [phone] OR call [facility] at [phone] ask to have the doctor orientation and mobility specialist paged. If you consider this an emergency, dial 5-1-1 or go to your nearest emergency department. NEED HELP? Are you dealing with a violent or abusive relationship? Are you a victim of rape or sexual assult? Call [facility] ([place]) 24 hour Crisis Hotline: 721.397.3366 or 334-792-2436. MANUAL Your Guide to a Healthy manual is now on-line. Visit [email or web address] to download your free copy documented in this encounterUc Medical Center10-28-2022 Miscellaneous Notes* Quick Notes - Diana Negron MD - 07/18/2022 9:26 AM EDT KJ - No VB/LOF/ctxs. Nausea is getting better. A&P: Declines aneuploidy screening Thrombophilia - continue lovenox Discussed OTC meds in Schedule anatomy US Diana Negron MD documented in this encounterUc Medical Center10-28-2022 Instructions* Patient Instructions* Marilyn Farah Ma - 07/18/2022 8:51 AM EDT SEQUENTIAL SCREENINGS The [facility] offers sequential screenings for women who are interested in screenings for chromosomal abnormalities and certain defects during a . The sequential screen combinesultrasound and blood tests to determine the risk of chromosomal abnormalities, including Down's Syndrome (Trisomy 21) and Trisomy 18, as well as open neural tube defects including spina bifida. Ultrasound examination is performed between 11 weeks and 13 weeks gestational age. Blood tests are drawn after the ultrasound and again later in the between 15 and 21 weeks gestational age. Please let your physician know if you are interested in this testing. It will require an appointment withour lead injection mold technician. This is not an ultrasound performed by a physician in our office during a routine visit. SIGNS AND SYMPTOMS OF LABOR 1. Contractions every 10 minutes or more often 2. Clear, pink, or brownish fluid (water) leaking from vagina 3. Feeling that baby is pushing down, pressure 4. Low, dull backache 5. Cramps that feel like a period 6. Cramps with or without diarrhea If you notice any of the above symptoms, contact our office at [phone] and ask to speak with anurse. After hours, you can call doctors registry at [phone] OR call [facility] at [phone] ask to have the doctor orientation and mobility specialist paged. If you consider this an emergency, dial 9-2-3 or go to your nearest emergency department. NEED HELP? Are you dealing with a violent or abusive relationship? Are you a victim of rape or sexual assult? Call [facility] ([place]) 24 hour Crisis Hotline: 237.599.1019 or 532-182-4182. MANUAL Your Guide to a Healthy manual is now on-line. Visit [email or web address] to download your free copy documented in this encounterUc Medical Center09-30-2022 History of Present illness Narrative* Dione Collins MD - 06/20/2022 11:16 AM EDT Edge Gluer offered: Patient declines. INITIAL OB ASSESSMENT OB Provider: Dione Collins DO HPI: Mirta Lacey is a 27 year old female here to establish Obstetrical Care. Patient's last menstrual period was 02/28/2022. from OB Dating Form. Cycle length: irregular Complaints: Nausea - she says Vitamin B6 made her nausea worse was planned. 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 ALBUTEROL INHALATION Inhale as instructed. CETIRIZINE HCL (ZYRTEC ORAL) Take by mouth once daily. No current facility-administered medications on file prior to visit. Review of Systems: GENERAL: Negative for: Fever or Chills HEENT: Negative for: Headache, Impaired Vision, Ringing in Ears, Nosebleeds NECK: Negative for: Swelling, Pain, Stiffness RESPIRATORY: Negative for: Cough, Shortness of breath, Wheezing GASTROINTESTINAL: Negative for: Heartburn, Constipation, Diarrhea, Blood in stool, Vomiting MUSCULOSKELETAL: Negative for: Muscle or joint pain, stiffness, Joint swelling NEUROLOGIC/PSYCHIATRIC: Negative for: Weakness, Paralysis, Numbness, Tingling, Tremor, Anxiety, Depression, Memory loss SKIN: Negative for: Rash, Itching GENITOURINARY: Negative for: vaginal itching, vaginal discharge, hematuria or dysuria PHYSICAL EXAM: BP 100/60 Ht 5' 4 (1.63m) Wt 176 lb 12.8 oz (80.2kg) LMP 02/28/2022 BMI 30.33 kg/(m^2). GENERAL: pleasant female in no apparent distress DERMATOLOGY: Normal, without lesions, non-icteric, and non-hirsute NECK: Supple, full range of motion, no adenopathy, and thyroid normal CHEST: Normal inspiratory effort BREAST: soft, non-tender, symmetric, no dominant mass, normal nipple-areolar complex, no lymphadenopathy, and no nipple discharge ABDOMEN: soft, non-tender, and no masses NEURO: exam grossly non-focal PELVIS: External genitalia normal without lesions. Perineal body intact. No vaginal or cervical lesions. Cervix closed. Uterus 9 week size. No adnexal masses or tenderness. Clinical Pelvimetry: Pelvimetry clinically assessed as adequate Limited OB ultrasound exam: single intrauterine and positive cardiac activity, CRL 9w6d OB Risk Screening: Completed, no positive findings documented. ASSESSMENT: 27 year old at 9 wks gestational age PLAN: 1) Patient oriented to practice. Discussed nutrition, folic acid supplementation, dietary guidelines, exercise, smoking, alcohol, caffeine, and drug use. Discussed routine OB labs including STD/HIV. Discussed aneuploidy and carrier screening. Declines aneuploidy and carrier screening. Start Lovenox. Follow up in 4 weeks or sooner prn. Dione Collins DO documented in this encounterUc Medical Center09-30-2022 Instructions* Patient Instructions* Gladys Gamboa MA - 06/20/2022 11:16 AM EDT Please select the following link to access the [facility] Your Guide to a Healthy . [email or web address] documented in this encounterUc Medical Center09-07-2022 History of Present illness Narrative* Jamarcus Marrero RN - 05/28/2022 1:12 PM EDT # 1 - Date: 03/17/16, Sex: Female, Weight: 6 lb 9 oz (2.977 kg), GA: None, Delivery: Vaginal, Spontaneous, Apgar1: 8, Apgar5: 9, Living: Living, Comments: no care, spontaneous labor, Right vaginal vault laceration, EBL 200cc # 2 - Date: None, Sex: None, Weight: None, GA: None, Delivery: None, Apgar1: None, Apgar5: None, Living: None, Comments: None documented in this encounterUc Medical Center09-07-2022 Miscellaneous Notes* Quick Notes - Jamarcus Marrero RN - 05/28/2022 1:11 PM EDT DISTANCE HEALTH VISIT This Team Access Model visit is a phone encounter. It required patient-provider interaction for themedical decision making as documented below.Patient is complaining of nausea in . Denies any vomiting. Dietary considerations discussed . Vitamin B6 recommended. Advised patient to call/comein if she is unable to keep any food or fluids down in a 24-hour period. 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 Mother had venous thromboembolism during and at the time of a fracture. Patient desires aneuploidy screening. Contact information to Phone2Action given to patient to check on insurance coverage. Patient declines genetic carrier screening testing.Jamarcus Marrero RN documented in this encounterUc Medical Center08-26-2022 Miscellaneous Notes* Telephone Encounter - Cristina Anaya RN - 05/16/2022 11:10 AM EDT u/s and PNOB not able to be on same day d/t availability. Appointments scheduled. Cristina Anaya RN * Telephone Encounter - Adina Chou RN - 05/16/2022 10:59 AM EDT Left message to call office. Adina Chou RN * Telephone Encounter - Sierra Obregon MD - 05/16/2022 10:32 AM EDT Maybe schedule dating scan next and PNOB after. Sierra Obregon MD * Telephone Encounter - Ursula Emmanuel RN - 05/16/2022 9:35 AM EDT Can you please review in KJ's absence. hCG Quantitative, Blood Date Value 05/15/2022 2,312.0 mIU/mL 2022 906.2 mIU/mL documented in this encounterUc Medical Center08-23-2022 History of Present illness Narrative* Diana Negron MD - 2022 11:34 AM EDT Edge Gluer offered: Patient declines. Mirta Lacey is a 27 year old female who presents for positive test. HPI: Patient presents with positive test. Her LMP was February 28 but her cycles are about 45days apart. She had a negative test the first half of March. OB History T1 L1 SAB0 IAB0 Ectopic0 Multiple0 Live Births1 Selling Underwriter History LMP: 02/28/2022, Having periods Age at Menarche: Age at First : Age at Menopause: Selling Underwriter History Comments: Sexual Activity: Not Asked; No partner data on record Contraception: I.U.D. PAST MEDICAL HISTORY Diagnosis Date Protein S deficiency (HCC) PAST SURGICAL HISTORY Procedure Laterality Date TONSILLECTOMY & ADENOIDECTOMY <AGE 12 2003 FAMILY HISTORY Problem Relation Age of Onset other (pompay) Brother Social History Tobacco Use Smoking status: Never Smokeless tobacco: Never Vaping Use Vaping Use: Never used Substance Use Topics Alcohol use: No Drug use: No Current Outpatient Medications Medication Sig ALBUTEROL INHALATION Inhale as instructed. CETIRIZINE HCL (ZYRTEC ORAL) Take by mouth once daily. acetaminophen 325 mg-caffeine 40 mg-butalbital 50 mg (FIORICET) per tablet Take 1 tablet by mouth every 4 hours as needed for Headache. FLUTICASONE PROPIONATE (FLOVENT DISKUS INHALATION) Inhale as instructed. (Patient not taking: Reported on 2022) No current facility-administered medications for this visit. Allergies As of Date: 2022 (No Known Allergies) Fully Assessed 2022 EXAM: BP 112/72 Wt 176 lb 12.8 oz (80.2kg) LMP 02/28/2022 GENERAL: pleasant, female in no apparent distress CHEST: Normal inspiratory effort PELVIC: external genitalia normal, normal appearing perineal body and perianal region ASSESSMENT AND PLAN: 27yo female with positive test Check hcg quants and T&S Plan for follow up based on results as she is factor V heterozygous and factor S deficiency. Her mother had venous thromboembolism during & at the time of a fracture. Medical Decision Making: Problems: Moderate: 1+ chronic illnesses with change Data: Unique source(s) for external note(s) reviewed: 1 Unique test(s) ordered: 2 Risk: Low: Low risk from testing/treatment Medical Decision Making Level: 4 - Moderate Diana Negron MD documented in this encounterUc Medical Center08-19-2022 History of Present illness Narrative* Diana Negron MD - 05/09/2022 4:21 PM EDT Canceled Diana Negron MD documented in this encounterUc Medical Center08-19-2022 Miscellaneous Notes* Telephone Encounter - Cristina Anaya RN - 05/09/2022 12:04 PM EDT Patient notified. Appointments scheduled. Cristina Anaya RN * Telephone Encounter - Sierra Obregon MD - 05/09/2022 11:51 AM EDT See if she can at least do a virtual visit with Dr. Negron this afternoon to discuss history of clotting disorder. We don't have a record from last as it looks like I did her delivery but she didn't have routine care. We should discuss her history as I can't remember how she knows about protein S def. and factor 5 leiden. She may need to be on lovenox sooner rather thanlater. This won't be ob visit but problem visit to discuss antiocoagulation. Schedule PNOB and NOB as well. Sierra Obregon MD * Telephone Encounter - Ursula Radford RN - 05/09/2022 11:09 AM EDT Call placed to patient to triage for new OB appt. LMP 6/10. Yet to start a PNV, will shop for one with DHA and folic acid. No cats. Denies pelvic pain or vag bleeding - precautions for both discussed. Patient has hx of protein S deficiency,factor 5. Was on Lovenox last time but is hoping for a different option as she doesn't really have anyone to help her with the inj this time around. Will checkwith office if she needs to start this a head of initial OB appt. Patient wants to see Fanny at [place]. Routing to [place] nurses and schedulers. * Telephone Encounter - Ursula Radford RN - 05/09/2022 11:08 AM EDT ----- Message from [place] sent at 05/09/2022 10:46 AM EDT ----- Regarding: WHI/NEW Patient has been identified by name and Date of : Yes Patient: Mirta Lacey Date of : 1995 Provider for this encounter : NEW No primary care provider on file. Reason for call: Triage Was an appointment scheduled: No Reason for requesting visit (RFV/signs and symptoms/diagnosis) : BLOOD CLOTTING DISORDER Person calling: self Return call to: self Call patient at: on cell [phone] (home) Payor: ZUNILDA / Plan: BLUE ACCESS PPO / Product Type: PPO / [place] documented in this encounterUc Medical CenterDischar summary Author Dr. Perez [place] December 22, 2022 1:00pm Note Date/Time December 22, 2022 12:0 2pm [facility] Medical Records Department [address] [place] [address] Emergency Department Summary 12/22/22 MR#: [id number] Acct: [id number] Name: MIRTA LACEY Rep #:[id number] : 1995 27 From: Moshe Perez MD PCP: Care Physician,No Primary Status :REG ER Location: ED HPI HPI - URI History of Present Illness Chief Complaint: Cough Informant: patient Onset/Context/Timing Onset: Days (4) Context: Gradual Onset Timing: Continuous Quality: CLERK OF COURT cough Location: chest Current Severity: Moderate Maximum Severity: Moderate Narrative Narrative: Patient states 5 or 6 days ago she started with sore throat and a left earache, she was seen at urgent care swabbed positive for strep throat, and placed on plain amoxicillin for this. She has been taking Delsym as needed since she developed runny nose, congestion, and a cough within the next couple days, stilltaking amoxicillin, she is having bilateral ear discomfort, chest discomfort, hoarseness now she has lost her voice, and wheezing with asthma symptoms, she has a history of asthma. Chest is really sore especially when she coughs. States albuterol is helping her wheezing some. No fevers or chills. She is in her third trimester and having no issues with that at this time. She is anticoagulated on Lovenox because of a history of factor V Leiden, she has had no bleeding anywhere recently. Patient states has been on the amoxicillin, her sore throat is much better. ROS ROS ED Constitutional Constitutional ED: Denies chills or fever(s) ENT ENT ED: Reports ear pain bilateral, hoarseness, nasal congestion, rhinorrhea andsore throat Cardiovascular Cardiovascular: Reports chest pain; Denies palpitations Respiratory/Chest Respiratory/Chest: Reports cough and dyspnea Gastrointestinal Gastrointestinal: Denies abdominal pain, diarrhea, nausea or vomiting Genitourinary Genitourinary ED: Denies dysuria or hematuria Musculoskeletal Musculoskeletal: Denies myalgias or neck pain Integumentary Denies abscess or rash Neurologic Neurologic: Denies headache(s), paresthesias or weakness Psychiatric Psychiatric: Denies depression or suicidal thoughts Endocrine Endocrinology: Denies polydipsia or polyuria PFSH PFS Medical History Acute otitis media, right Acute pharyngitis, unspecified Acute sinusitis, unspecified Anemia Asthma Factor V deficiency Home Medications amoxicillin 250 mg/5 mL oral suspension 500 mg (10 mL) PO TID 10 days #300 mL 12/18/22 [Rx Last Taken Unknown] prednisone 20 mg tablet 40 mg PO DAILY #10 TABLETS 12/22/22 [Rx Last Taken Unknown] Allergy/AdvReac Type Severity Reaction Status Date / Time No Known Allergies Allergy Verified 12/22/22 11:32 Social History Smoking Status: Never smoker alcohol intake: current alcohol intake frequency: a few times a month EXAM Physical Exam Const Vital Signs: 12/22/22 11:29 12/22/22 12:50 Temperature 97.8 F Temperature Source Temporal Pulse Rate 103 H Respiratory Rate 16 Respiratory Effort Short of Breath Respiratory Depth Normal Respiratory Pattern Normal Blood Pressure 106/84 H Blood Pressure Mean 91 Pulse Ox 96 Oxygen Delivery Method Room Air Positive well nourished and well developed General Appearance ED: well developed and NAD HEENT Reports moist mucous membranes HEENT Narrative: TMs normal bilaterally, barely a rim of erythema at the stapes prominence in theleft TM, but otherwise no purulent effusion or changes in light reflex. EACs normal bilaterally. No sinus tenderness. No purulent nasal discharge. normocephalic and atraumatic Throat: Negative for posterior oropharynx abnormal Eyes PERRL and EOMs intact bilaterally Neck no lymphadenopathy, supple and no meningeal signs Chest Wall Chest Narrative: Bilateral parasternal tenderness consistent with muscular discomfort. Resp normal respiratory effort and clear to auscultation bilaterally Cardio no murmurs Rate: regular rate and tachycardic Rhythm: regular rhythm GI non-tender GI Narrative: Distended above the umbilicus consistent with her third trimester Neuro oriented x3, CN's II-XII intact bilaterally and no sensory deficits noted Sensorium / Orientation: alert Motor Exam: strength 5/5 throughout Skin Lesions: no lesions Rashes: no rashes MDM MDM MDM Narrative Medical decision making narrative: Perform COVID and influenza swabs, which were both negative, as well as a two- view chest x-ray which is normal showing no acute consolidation/pneumonia on my interpretation. Radiology in agreement. Started on prednisone for her asthma exacerbation, I would continue the amoxicillin, it is not appropriate first-linetreatment, however does appear to have taken care of her otitis media. She states the practitioner saw her told her that her left ear was very red and asymmetric when she was evaluated and that is much better now. I think the chest pain is a mixture of her bronchitis and a sore musculature in her chest wall. Supportive care advised in addition to prescription for prednisone. Radiography Diagnostic Testing: Clinical Impression(s) from Imaging Studies Chest X-Ray 12/22/22 11:58 IMPRESSION: No radiographic evidence of acute cardiopulmonary disease and no significant interval change when compared to 05/03/2016. Electronically Signed: Brenden Perez MD at 12:44 EDT , Discharge Plan Triage Chief Complaint: Cough ED Provider: oMshe Perez Dx/Rx/DC Orders Clinical Impression: Acute asthma exacerbation, Acute viral bronchitis Instructions: Acute Bronchitis, Asthma Prescriptions: New prednisone 20 mg tablet 40 mg PO DAILY Qty: 10 0RF No Action amoxicillin 250 mg/5 mL suspension for reconstitution 500 mg PO TID 10 Days Qty: 300 0RF Primary Care Provider: Care Physician,No Primary Referrals: Care Physician,No Primary [Primary Care Provider] - Doctor,Your [Non-Staff] - 1 Week if not improving Activity Restrictions/Additional Instructions: Prescription get started tomorrow, 12/23 since you already had a dose for 4/3 Disposition Disposition: Home, Self Care What to do if you have Problems For any increased pain, shortness of breath, bleeding, nausea or vomiting, chestpain, or any unexpected problems, contact your Primary Care Provider. Call Doctors Registry ([phone]) or report to the closest Emergency Room. Call 911 if necessary. 12/22/22 1300 <Electronically signed by Moshe Perez MD> Cosigner Signature (if applicable): CC: No Primary Care Physician ~ Signed [place] Work Phone: Evaluation note* Diagnosis APPOINTMENT CANCELLED- Primary documented [facility] encounter [facility]* Diagnosis Early stage of - Primary state, incidental Factor V Leiden carrier (HCC) Primary hypercoagulable state Protein S deficiency affecting (HCC) documented in this encounter [facility] note* Diagnosis with uncertain dates in first trimester- Primary documented in this encounter [facility] note* Diagnosis with uncertain dates in first trimester- Primary documented in this encounter [facility] note* Diagnosis Heterozygous factor V Leiden affecting , antepartum (HCC)- Primary related nausea, antepartum Mild hyperemesis gravidarum, antepartum Patient request for diagnostic testing Other specified examination [facility]* Diagnosis 9 weeks gestation of - Primary state, incidental Heterozygous factor V Leiden affecting , antepartum (HCC) Nausea and vomiting during Protein S deficiency (HCC) Primary hypercoagulable state Supervision of high risk in first trimester Unspecified high-risk documented in this encounter [facility] note* Diagnosis Encounter for supervision of other normal in first trimester- Primary 13 weeks gestation of state, incidental [facility]* Diagnosis Encounter for anatomic survey- Primary Obesity complicating , second trimester 19 weeks gestation of state, incidental documented in this encounter [facility] note* Diagnosis Onset Date Resolution Status Acute upper respiratory infection acute [place] Work Phone: Evaluation note* Diagnosis 23 weeks gestation of - Primary state, incidental Encounter for supervision of other normal in first trimester [facility]* Diagnosis Heterozygous factor V Leiden affecting , antepartum (HCC) 9 weeks gestation of state, incidental Protein S deficiency (HCC) Primary hypercoagulable state [facility]* Diagnosis 27 weeks gestation of - Primary state, incidental [facility]* Diagnosis 29 weeks gestation of - Primary state, incidental Encounter for supervision of other normal in third trimester [facility]* Diagnosis 31 weeks gestation of - Primary state, incidental Encounter for supervision of other normal in third trimester Protein S deficiency (HCC) Primary hypercoagulable state Heterozygous factor V Leiden affecting , antepartum (HCC) [facility] Protein S deficiency affecting (HCC)- Primary Supervision of high risk in third trimester Unspecified high-risk Heterozygous factor V Leiden affecting , antepartum (HCC) 33 weeks gestation of state, incidental [facility]* Diagnosis Encounter for ultrasound to assess growth- Primary 33 weeks gestation of state, incidental Encounter for supervision of other normal in third trimester Protein S deficiency (HCC) Primary hypercoagulable state Heterozygous factor V Leiden affecting , antepartum (HCC) [facility]* Diagnosis Supervision of high risk in third trimester- Primary Unspecified high-risk Heterozygous factor V Leiden affecting , antepartum (HCC) Protein S deficiency affecting (HCC) 35 weeks gestation of state, incidental [facility]* Diagnosis Onset Date Resolution Status Acute upper respiratory infection acute Acute otitis media, right ac [place] Acute pharyngitis, unspecified acute Acute sinusitis, unspecified acute [place] Work Phone: Evaluation note* Diagnosis Supervision of high risk in third trimester- Primary Unspecified high-risk Heterozygous factor V Leiden affecting , antepartum (HCC) Protein S deficiency affecting (HCC) 36 weeks gestation of state, incidental documented in this encounter [facility] Diagnosis Onset Date Resolution Status Acute upper respiratory infection acute Acute otitis media, right ac [place] Acute pharyngitis, unspecified acute Acute sinusitis, unspecified acute 37 or more weeks gestation of acute Asthma acute Factor V deficiency acute Protein S deficiency affecting acute [place] Work Phone: Evaluation noteNo assessment information available [place] Work Phone: Evaluation note* Diagnosis Injury of finger of right hand, initial encounter- Primary Viral illness Unspecified viral infection, in conditions classified elsewhere and of unspecified site Injury of finger of right hand, initial encounter documented in this encounter [facility] Diagnosis Injury of finger of right hand, initial encounter [facility] Additional Instructions Inhaler as needed. 2 puffs every 4-6 hours as needed. Prednisone 40 mg a day start tomorrow. Follow-up with your doctor if not improving. Return if worse. Prescription for both the inhaler and prednisone were sent to your pharmacy.[place] Work Phone: Hospital Discharge instructions Additional Instructions Prescription get started tomorrow, 12/23 since you already had a dose for 12/22 [place] Work Phone: Reason for referral (narrative)* Diagnostic Procedure Only (Routine) - Pending Review Specialty Diagnoses / Procedures Referred By Mayo brown Referred To Contact [facility] [place] Diagnoses with uncertain dates in first trimester Procedures OBSTETRIC ULTRASOUND WHI US PREG UTERUS AFTER 1ST TRIMEST GESTATION Sierra Obregon MD [address] [place] [address] [facility] [place] [address] [place] [address] Referral ID Status Reason Start Date Expiration Date Visits Requested Visits Authorized [id number] Pending Review Auto-Generat ed Referral 05/16/2022 05/16/2023 1 1 [facility] for referral (narrative)* Diagnostic Procedure Only (Routine) - Authorized Specialty Diagnoses / Procedures Referred By Mayo brown Referred To Contact [facility] [place] Diagnoses 31 weeks gestation of Encounter for supervision of other normal in third trimester Protein S deficiency (HCC) Heterozygous factor V Leiden affecting , antepartum (HCC) Procedures OBSTETRIC ULTRASOUND WHI US PREG UTERUS AFTER 1ST TRIMEST GESTATION Sierra Obregon MD [address] [place] [address] [facility] [place] [employer] [address] [place] [address] Referral ID Status Reason Start Date Expiration Date Visits Requested Visits Authorized [id number] Authorized Auto-Generat ed Referral 11/20/2022 11/20/[address] [facility] for referral (narrative)* Diagnostic Procedure Only (Urgent) - Closed Specialty Diagnoses / Procedures Referred By Contac t Referred To Contact XR IMAGING Diagnoses Injury of finger of right hand, initial encounter Procedures XR DIGIT GENERAL 3V FRONTAL/LAT/OBL RIGHT RADEX FINGR MINIMUM 2 VIEWS Keyshawn Moseley APRN.TIRE RECAPPING MACHINE OPERATOR [address] [place] [address] [place] [address] Referral ID Status Reason Start Date Expiration Date V isits Requested Visits Authorized [id number] Closed Auto-Generate d Referral 09/23/2024 10/23/[address] [facility] for referral (narrative)* Diagnostic Procedure Only (Urgent) - Closed Specialty Diagnoses / Procedures Referred By Contac t Referred To Contact XR IMAGING Diagnoses Injury of finger of right hand, initial encounter Procedures XR DIGIT GENERAL 3V FRONTAL/LAT/OBL RIGHT RADEX FINGR MINIMUM 2 VIEWS Keyshawn Moseley APRN.TIRE RECAPPING MACHINE OPERATOR [address] [place] [address] [place] [address] Referral ID Status Reason Start Date Expiration Date V isits Requested Visits Authorized [id number] Closed Auto-Generate d Referral 09/23/2024 10/23/[address] [facility] for visit Narrative* Diagnostic Procedure Only (Urgent) - Closed Specialty Diagnoses / Procedures Referred By Contac t Referred To Contact XR IMAGING Diagnoses Injury of finger of right hand, initial encounter Procedures XR DIGIT GENERAL 3V FRONTAL/LAT/OBL RIGHT RADEX FINGR MINIMUM 2 VIEWS Keyshawn Moseley APRN.TIRE RECAPPING MACHINE OPERATOR [address] [place] [address] [place] [address] Referral ID Status Reason Start Date Expiration Date V isits Requested Visits Authorized [id number] Closed Auto-Generate d Referral 09/23/2024 10/23/2025 1 1 [facility] Summary Purpose Family History No Family History Records FoundNo Family History Records FoundNo Family History Records FoundNo Family History Records Found Advance Directives No Advanced Directives Records Found Advance Directive Response Recorded Date/ Time Living Will No September 23 1:05am Power of Application Development Team Lead No September 23, 2 023 1:05am Advance Directive Response Recorded Date/ Time Living Will No December 22, 2022 12:50pm Power of Application Development Team Lead No December 22 12:50pm Advance Directive Response Recorded Date/ Time Living Will No December 30, 2022 6:49pm Power of Application Development Team Lead No December 30 6:49pm Advance Directive Response Recorded Date/ Time Living Will No December 30, 2022 5:49pm Power of Application Development Team Lead No December 30 5:49pm Reason for Referral Specialty Diagnoses / Procedures Referred By Mayo t Referred To Contact Diagnoses Heterozygous factor V Leiden affecting , antepartum (HCC) 9 weeks gestation of Protein S deficiency (HCC) Procedures CONSULT TO MATERNAL MEDI OFFICE/OUTPATIENT [facility] 60-74 MINUTES Dione Collins MD [address] [place] [address] Referral ID Status Reason Start Date Expiration Date Visits Requested Visits Authorized [id number] Authorized PCP Requested Referral Auto-Generate d Referral 06/20/2022 06/20/2023 1 1 Specialty Diagnoses / Procedures Referred By Mayo brown Referred To Contact [facility] [place] Diagnoses Heterozygous factor V Leiden affecting , antepartum (HCC) 9 weeks gestation of Procedures OBSTETRIC ULTRASOUND WHI US PREG UTERUS AFTER 1ST TRIMEST GESTATION Dione Collins MD [address] [place] [address] [facility] [place] [facility] [place] [address] [place] [address] Referral ID Status Reason Start Date Expiration Date Visits Requested Visits Authorized [id number] Pending Review Auto-Generat ed Referral 06/20/2022 06/20/2023 1 1 Health Concerns Problem Noted Date OB Reminders 06/18/2022 Problem Noted Date OB Reminders 06/18/2022 Problem Noted Date OB Reminders 06/18/2022 Problem Noted Date OB Reminders 06/18/2022 Problem Noted Date OB Reminders 06/18/2022 Problem Noted Date OB Reminders 06/18/2022 Problem Noted Date OB Reminders 06/18/2022 Problem Noted Date OB Reminders 06/18/2022 Problem Noted Date OB Reminders 06/18/2022 Chief Complaint and Reason for Visit Chief Complaint SORE THROAT, COUGH, RT EAR PAIN SOB Reason for Visit Acute upper respirat ory infection Chief Complaint SORE THROAT, COUGH, RT EAR PAIN SOB SORE THROAT COUGH Reason for Visit Acute upper respirat ory infection Acute otitis media, right Acute pharyngitis, unspecified Acute sinusitis, unspecified Chief Complaint SORE THROAT, COUGH, RT EAR PAIN SOB SORE THROAT COUGH 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 Reason for Visit Acute upper respirat ory infection Acute otitis media, right Acute pharyngitis, unspecified Acute sinusitis, unspecified 37 or more weeks gestation of Asthma Factor V deficiency Protein S deficiency affecting Additional Source Comments INFORMATION SOURCE (unrecogn ized section and content) DATE CREATED AUTHOR 04/04/2018 [facility] DATE CREATED AUTHOR AUTHOR'S ORGANIZ ATION 02/16/2022 [facility] DATE CREATED AUTHOR AUTHOR'S ORGANIZ ATION 09/30/2024 [facility] DATE CREATED AUTHOR AUTHOR'S ORGANIZ ATION 01/13/2025 [facility] <item> Privacy Markings (unrecogniz ed section and content) Section Author: Destiny Carcamo PROHIBITION ON REDISCLOSURE OF CONFIDENTIAL INFORMATION This notice accompanies a disclosure of information concerning a client made to you with the consent of such client. Source Comments (unrecognize d section and content) In the event this informatio n is protected by the Federal Confidentiality of Alcohol and Drug Abuse Patient Records regulations: The Federal rules restrict any use of the information to criminally investigate or prosecute any alcohol or drug abuse patient.[facility] the event this information is protected by the Federal Confidentiality of Alcohol and Drug Abuse Patient Records regulations: The Federal rules restrict any use of the information to criminally investigate or prosecute any alcohol or drug abuse patient.[facility] the event this information is protected by the Federal Confidentiality of Alcohol and Drug Abuse Patient Records regulations: The Federal rules restrict any use of the information to criminally investigate or prosecute any alcohol or drug abuse patient.[facility] the event this information is protected by the Federal Confidentiality of Alcohol and Drug Abuse Patient Records regulations: The Federal rules restrict any use of the information to criminally investigate or prosecute any alcohol or drug abuse patient.[facility] the event this information is protected by the Federal Confidentiality of Alcohol and Drug Abuse Patient Records regulations: The Federal rules restrict any use of the information to criminally investigate or prosecute any alcohol or drug abuse patient.[facility] the event this information is protected by the Federal Confidentiality of Alcohol and Drug Abuse Patient Records regulations: The Federal rules restrict any use of the information to criminally investigate or prosecute any alcohol or drug abuse patient.[facility] the event this information is protected by the Federal Confidentiality of Alcohol and Drug Abuse Patient Records regulations: The Federal rules restrict any use of the information to criminally investigate or prosecute any alcohol or drug abuse patient.[facility] the event this information is protected by the Federal Confidentiality of Alcohol and Drug Abuse Patient Records regulations: The Federal rules restrict any use of the information to criminally investigate or prosecute any alcohol or drug abuse patient.[facility] the event this information is protected by the Federal Confidentiality of Alcohol and Drug Abuse Patient Records regulations: The Federal rules restrict any use of the information to criminally investigate or prosecute any alcohol or drug abuse patient.[facility] the event this information is protected by the Federal Confidentiality of Alcohol and Drug Abuse Patient Records regulations: The Federal rules restrict any use of the information to criminally investigate or prosecute any alcohol or drug abuse patient.[facility] the event this information is protected by the Federal Confidentiality of Alcohol and Drug Abuse Patient Records regulations: The Federal rules restrict any use of the information to criminally investigate or prosecute any alcohol or drug abuse patient.[facility] the event this information is protected by the Federal Confidentiality of Alcohol and Drug Abuse Patient Records regulations: The Federal rules restrict any use of the information to criminally investigate or prosecute any alcohol or drug abuse patient.[facility] the event this information is protected by the Federal Confidentiality of Alcohol and Drug Abuse Patient Records regulations: The Federal rules restrict any use of the information to criminally investigate or prosecute any alcohol or drug abuse patient.[facility] the event this information is protected by the Federal Confidentiality of Alcohol and Drug Abuse Patient Records regulations: The Federal rules restrict any use of the information to criminally investigate or prosecute any alcohol or drug abuse patient.[facility] the event this information is protected by the Federal Confidentiality of Alcohol and Drug Abuse Patient Records regulations: The Federal rules restrict any use of the information to criminally investigate or prosecute any alcohol or drug abuse patient.[facility] the event this information is protected by the Federal Confidentiality of Alcohol and Drug Abuse Patient Records regulations: The Federal rules restrict any use of the information to criminally investigate or prosecute any alcohol or drug abuse patient.[facility] the event this information is protected by the Federal Confidentiality of Alcohol and Drug Abuse Patient Records regulations: The Federal rules restrict any use of the information to criminally investigate or prosecute any alcohol or drug abuse patient.[facility] the event this information is protected by the Federal Confidentiality of Alcohol and Drug Abuse Patient Records regulations: The Federal rules restrict any use of the information to criminally investigate or prosecute any alcohol or drug abuse patient.[facility] Center[facility] the event this information is protected by the Federal Confidentiality of Alcohol and Drug Abuse Patient Records regulations: The Federal rules restrict any use of the information to criminally investigate or prosecute any alcohol or drug abuse patient.[facility] Center[facility] the event this information is protected by the Federal Confidentiality of Alcohol and Drug Abuse Patient Records regulations: The Federal rules restrict any use of the information to criminally investigate or prosecute any alcohol or drug abuse patient.[facility] Center[facility] the event this information is protected by the Federal Confidentiality of Alcohol and Drug Abuse Patient Records regulations: The Federal rules restrict any use of the information to criminally investigate or prosecute any alcohol or drug abuse patient.[facility] Center[facility] the event this information is protected by the Federal Confidentiality of Alcohol and Drug Abuse Patient Records regulations: The Federal rules restrict any use of the information to criminally investigate or prosecute any alcohol or drug abuse patient.[facility] Center[facility] the event this information is protected by the Federal Confidentiality of Alcohol and Drug Abuse Patient Records regulations: The Federal rules restrict any use of the information to criminally investigate or prosecute any alcohol or drug abuse patient.[facility] Reason for Visit (unrecogniz ed section and content) 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 No Show Reason Comments Follow Up Discuss lovenox and bedside ultrasound 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 Reason Comments Care Reason Comments Care Reason Onset Date Comments Care 07/18/2022 Reason Comments US Specialty Diagnoses / Procedures Referred By Mayo t Referred To Contact [facility] Diagnoses Heterozygous factor V Leiden affecting , antepartum (HCC) 9 weeks gestation of Procedures OBSTETRIC ULTRASOUND WHI US PREG UTERUS AFTER 1ST TRIMEST GESTATION Dione Collins MD [address] [facility] [place] [address] [facility] [place] [facility] [place] [address] [place] [address] Referral ID Status Reason Start Date Expiration Date V isits Requested Visits Authorized [id number] Closed Auto-Generate d Referral 06/20/2022 06/20/2023 1 1 Reason Onset Date Comments Care 09/25/2022 Reason Onset Date Comments Refill Request 10/07/2022 Reason Onset Date Comments Care 10/20/2022 Pelvic Pain For several week s Reason Onset Date Comments Care 11/06/2022 Reason Onset Date Comments Care 11/20/2022 Reason Onset Date Comments Care 12/04/2022 Specialty Diagnoses / Procedures Referred By Contac t Referred To Contact [facility] [place] Diagnoses 31 weeks gestation of Encounter for supervision of other normal in third trimester Protein S deficiency (HCC) Heterozygous factor V Leiden affecting , antepartum (HCC) Procedures OBSTETRIC ULTRASOUND WHI US PREG UTERUS AFTER 1ST TRIMEST GESTATION Sierra Obergon MD [address] [place] [address] [facility] [place] [place] [address] [place] [address] Referral ID Status Reason Start Date Expiration Date V isits Requested Visits Authorized [id number] Closed Auto-Generate d Referral 11/20/2022 11/20/2023 1 1 Reason Onset Date Comments Care 12/19/2022 Reason Onset Date Comments Care 12/25/2022 Reason Comments Ob Delivery Note Reason Onset Date Comments Refill Request 03/07/2023 Reason Comments Head Congestion Sinus congestion, BEGUM , cough x6 days, L ear pain, ST Finger Injury R hand ring finger i njury x last night Goals (unrecognized section and content) Goals may be documented in a n alternate sectionGoals may be documented in an alternate sectionGoals may be documented in an alternate sectionGoals may be documented in an alternate section Care Teams (unrecognized sec tion and content) Team Status: Active Member Role Status Dates Dr. Soo Obregon MD Family Provider Active No Primary Care Physician Primary Care Provider Active Team Status: Inactive Member Role Status Dates Guillermo COFFEY PA Attending Provider Active Team Status: Inactive Member Role Status Dates No Primary Care Physician Primary Care Provider, Refer ring Provider Active Xander COFFEY, PA Attending Provider Active Team Status: Inactive Member Role Status Dates Dr. Antony Ley MD Attending Provider, Emergency Pro vider Active No Primary Care Physician Primary Care Provider Active Team Status: Inactive Member Role Status Dates No Primary Care Physician Primary Care Provider Active Dr. Moshe Perez MD Emergency Provider Active Team Status: Inactive Member Role Status Dates No Primary Care Physician Primary Care Provider Active Dr. Moshe Perez MD Attending Provider, Emergency Provider Active Team Status: Inactive Member Role Status Dates No Primary Care Physician Primary Care Provider Active Dr. Diana Negron MD Admit Provider, At tending Provider, Referring Provider Active Team Status: Inactive Member Role Status Dates No Primary Care Physician Primary Care Provider Active Dr. Praveen Fairchild DO Attending Provider, Emergency Pr ovider Active Team Status: Active Member Role Status Dates Dr. Soo Obregon MD Family Provider Active Rebeka Fermin NP-C Primary Care Provider Active Team Status: Inactive Member Role Status Dates Rebeka Fermin NP-C Primary Care Provider, Attending P topher Active FOR RECORDS PERTAINING TO PATIENTS WHO ARE OR HAVE BEEN ENROLLED IN A CHEMICAL DEPENDENCY/SUBSTANCEABUSE PROGRAM, SOME INFORMATION MAY BE OMITTED. This clinical summary was aggregated from multiple sources. Caution should be exercised in using it in the provision of clinical care. This summary normalizes information from multiple sources, and as a consequence, information in this document may materially change the coding, format and clinical context of patient data. In addition, data may be omitted in some cases. CLINICAL DECISIONS SHOULD BE BASED ON THE PRIMARY CLINICAL RECORDS. [employer] provides no warranty or guarantee of the accuracy or completeness of information in this document.
[2025-04-30 14:30] VITALS: BP 128/70; PULSE 74; RESP 15; TEMP 36.8; O2SAT 99
== END 2025-04-30 14:32 | disposition home or self-care (01) ==
PROVIDERS: Emergency Provider Emergency Medicine; PCP Family Medicine; Referring Provider Emergency Medicine; Visit Provider Emergency Medicine
DX: S93.401A Sprain of unspecified ligament of right ankle, initial encounter (principal); S93.601A Unspecified sprain of right foot, initial encounter; J45.909 Unspecified asthma, uncomplicated; W10.9XXA Fall (on) (from) unspecified stairs and steps, initial encounter
CPT/HCPCS: 73610; 73630; 99284

== ENCOUNTER → 2025-07-20 | Outpatient (CLI) | payer OTHER, SELFPAY ==
--- NOTE | 2025-07-20 11:55 | RAD_ITS ---
PROCEDURE: RAD/Knee 4 or More Views
== END | disposition home or self-care (01) ==
LOC: MTRAD 11:53
PROVIDERS: PCP Family Medicine; Referring Provider Family Medicine; Visit Provider Family Medicine
DX: M76.52 Patellar tendinitis, left knee (principal)
CPT/HCPCS: 73564